=== PATIENT | female | born 1985 | race Caucasian/White ===

== ENCOUNTER 2018-07-02 14:59 | Emergency (ER) | payer OTHER ==
[2018-07-02] MEDS ORDERED: PROMETHAZINE 25 MG TABLET ONE (15:31)
[2018-07-02] MEDS ORDERED: KETOROLAC 30 MG/ML INJ ONE (15:31)
[2018-07-02] MEDS ORDERED: NA CHLORIDE 0.9% 1,000 ML ONE (15:31)
[2018-07-02 15:43] LABS: Absolute Lymphocytes (CBC) 1.6 K/uL (0.7-4.9); Absolute Monocytes 0.6 K/uL (0.1-1.3); Absolute Neutrophil 5.9 K/uL (1.8-8.0); Basophils % 0.3 % (0-1.3); Eosinophils % 0.4 % (0-4.4); Hematocrit 38.8 % (36.0-45.0); Lymphocytes % 19.7 % (15.3-44.8); MCH 30.1 pg (27.0-35.0); MCV 88.6 fL (80-100); MPV 6.7 fL (7.6-11.3); Monocytes % 7.1 % (3.3-12.3); RBC Red Blood Cell Count 4.38 M/uL (3.86-4.86)
[2018-07-02 15:51] LABS: Urine Blood TRACE (NEG); Urine Glucose NEGATIVE (NEG); Urine Protein NEGATIVE (NEG)
[2018-07-02 15:57] LABS: Urine Bacteria <20 /HPF (<20); Urine Culture Reflex Order NOT NEEDED; Urine Mucus 1+ /HPF (NONE SEEN)
[2018-07-02] MEDS ORDERED: FENTANYL CITR 100 MCG/2 ML ONE (16:03)
[2018-07-02 16:06] LABS: BUN Blood Urea Nitrogen 12 mg/dL (7-18); Bicarbonate 27 mmol/L (21-32); Glucose Level 73 mg/dL (74-106); Potassium 3.9 mmol/L (3.5-5.1); Sodium Level 140 mmol/L (136-145)
--- NOTE | 2018-07-02 16:20 | RAD REPORT ---
EXAM DESCRIPTION: CT - Stone Protocol - 07/02/2018 4:06 pm CLINICAL HISTORY: Flank pain. KIDNEY STONES COMPARISON: No comparisons TECHNIQUE: Axial images were obtained without oral or IV contrast. Lack of contrast limits solid org an and vascular assessment. The [id number] spans the entirety of the system partially obscuring uppermost abdomen and lung bases. Coronal reformatted images were obtained and reviewed. All CT scans are performed using dose optimization technique as appropriate and may include automated exposure control or mA/KV adjustment according to patient size. FINDINGS: The lower lung lemos are clear. Imaged portions of the liver and spleen show no suspicious findings on non-contrast imaging. The panc reas and adrenal glands are normal. No pathologic lymphadenopathy in the abdomen or pelvis. Small bilateral renal calculi are present. No ureter stones are seen. No hydronephrosis. No bowel obstruction, free air, free fluid or abscess. Normal appendix noted. No significant bony abnormality. IMPRESSION: Bilateral nephrolithiasis without hydronephrosis.
--- NOTE | 2018-07-02 16:36 | EDPHYS ---
Physician Documentation [facility] Name: Alex Walker Age: 32 yrs Sex: Female : 1985 Arrival Date: 07/02/2018 Time: 15:04 Bed 11 Private MD: Deondre Harris HPI: 07/02 15:18 This 32 yrs old Female presents to ER via Ambulatory with complaints of snw Urinary Problem, Low Back Pain, Eye Pain. 15:18 The patient presents with pain that is acute, with no known mechanism of injury. The snw symptoms are located in the right mid back. Onset: The symptoms/episode began/occurred suddenly, 3 day(s) ago, and became persistent. The pain does not radiate. Associated signs and symptoms: Pertinent positives: headache, urinary symptoms. The problem was sustained from unknown cause. Severity of symptoms: At their worst the symptoms were moderate, severe. It is unknown whether or not the patient has had similar symptoms in the past. just moved to [facility] and sees MD in [place]. 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 - Social history:: Smoking status: Patient/guardian denies using tobacco, Patient/guardian denies using alcohol, street drugs, IV drugs. - Ebola Screening: : No symptoms or risks identified at this time. ROS: 15:16 Constitutional: Negative for fever, chills, and weight loss. snw 15:16 ENT: Negative for injury, pain, and discharge, Neck: Negative for injury, pain, and swelling, Cardiovascular: Negative for chest pain, palpitations, and edema, Respiratory: Negative for shortness of breath, cough, wheezing, and pleuritic chest pain, Abdomen/GI: Negative for abdominal pain, nausea, vomiting, diarrhea, and constipation, MS/Extremity: Negative for injury and deformity, Skin: Negative for injury, rash, and discoloration. 15:16 Eyes: Positive for pressure behind right eye. 15:16 Back: Positive for flank pain, on the right. 15:16 : Positive for urinary symptoms, flank pain. 15:16 Neuro: Positive for headache. Exam: 15:14 Constitutional: This is a well developed, well nourished patient who is awake, alert, snw and in no acute distress. Head/Face: Normocephalic, atraumatic. 15:14 ENT: Nares patent. No nasal discharge, no septal abnormalities noted. Tympanic membranes are normal and external auditory canals are clear. Oropharynx with no redness, swelling, or masses, exudates, or evidence of obstruction, uvula midline. Mucous membranes moist. Neck: Trachea midline, no thyromegaly or masses palpated, and no cervical lymphadenopathy. Supple, full range of motion without nuchal rigidity, or vertebral point tenderness. No Meningismus. Chest/axilla: Normal chest wall appearance and motion. Nontender with no deformity. No lesions are appreciated. Cardiovascular: Regular rate and rhythm with a normal S1 and S2. No gallops, murmurs, or rubs. Normal PMI, no JVD. No pulse deficits. Respiratory: Lungs have equal breath sounds bilaterally, clear to auscultation and percussion. No rales, rhonchi or wheezes noted. No increased work of breathing, no retractions or nasal flaring. Abdomen/GI: Soft, non-tender, with normal bowel sounds. No distension or tympany. No guarding or rebound. No evidence of tenderness throughout. Skin: Warm, dry with normal turgor. Normal color with no rashes, no lesions, and no evidence of cellulitis. MS/ Extremity: Pulses equal, no cyanosis. Neurovascular intact. Full, normal range of motion. Neuro: Awake and alert, GCS 15, oriented to person, place, time, and situation. Cranial nerves II-XII grossly intact. Motor strength 5/5 in all extremities. Sensory grossly intact. Cerebellar exam normal. Normal gait. Psych: Awake, alert, with orientation to person, place and time. Behavior, mood, and affect are within normal limits. 15:14 Eyes: Exam is negative for acute changes. 15:14 Back: pain, is absent, ROM is normal, normal spinal alignment noted, CVA tenderness, that is moderate, is noted on the right. Vital Signs: 15:17 BP 132 / 97; Pulse 75; Resp 18; Temp 98.6(O); Pulse Ox 100% on R/A; Weight 79.83 kg; mg2 Height 5 ft. 1 in. (154.94 cm); Pain 7/10; 16:14 BP 107 / 65; Pulse 76; Resp 18; Pulse Ox 100% on R/A; mg2 17:04 BP 110 / 75; Pulse 74; Resp 18; Pulse Ox 98% on R/A; Pain 2/10; mg2 15:17 Body Mass Index 33.25 (79.83 kg, 154.94 cm) mg2 MDM: 15:11 Patient medically screened. snw 18:37 Data reviewed: vital signs, nurses notes. Data interpreted: Pulse oximetry: on room air snw is 98 %. Counseling: I had a detailed discussion with the patient and/or guardian regarding: the historical points, exam findings, and any diagnostic results supporting the discharge/admit diagnosis, lab results, the need for outpatient follow up, to return to the emergency department if symptoms worsen or persist or if there are any questions or concerns that arise at home. Special discussion: Based on the history and exam findings, there is no indication for further emergent testing or inpatient evaluation. I discussed with the patient/guardian the need to see the primary care provider for further evaluation of the symptoms. 07/02 15:16 Order name: CBC with Diff; Complete Time: 16:08 snw 07/02 15:16 Order name: Chem 7; Complete Time: 16:08 snw 07/02 15:16 Order name: Urine Culture snw 07/02 15:16 Order name: Urine Microscopic Only; Complete Time: 16:08 snw 07/02 15:43 Order name: Urine Dipstick--Ancillary (enter results); Complete Time: 15:55 bd 07/02 15:43 Order name: Urine --Ancillary (enter results); Complete Time: 15:55 bd 07/02 15:16 Order name: Urine Test (obtain specimen); Complete Time: 15:35 snw 07/02 15:16 Order name: Urine Dipstick-Ancillary (obtain specimen); Complete Time: 15:35 snw 07/02 15:56 Order name: CT Stone Protocol; Complete Time: 16:23 snw Administered Medications: 15:35 Drug: NS 0.9% 1000 ml Route: IV; Rate: 1 bolus; Site: left antecubital; mg2 17:03 Follow up: Response: No adverse reaction; IV Status: Completed infusion mg2 15:35 Drug: Phenergan 25 mg Route: PO; mg2 16:00 Follow up: Response: No adverse reaction; Marked relief of symptoms mg2 15:35 Drug: TORadol 30 mg Route: IVP; Site: left antecubital; mg2 16:00 Follow up: Response: No adverse reaction; Pain is unchanged, physician notified mg2 16:00 Drug: fentaNYL (PF) 25 mcg Route: IVP; Site: left antecubital; mg2 17:03 Follow up: Response: No adverse reaction; Marked relief of symptoms mg2 Disposition: 07/03 06:47 Co-signature as Attending Physician, Deondre Melchor MD I agree with the assessment and jordyn plan of care. Disposition: 07/02/18 16:35 Discharged to Home. Impression: Unspecified renal colic, Headache, Dysuria. - Condition is Stable. - Discharge Instructions: Dysuria, General Headache Without Cause, Renal Colic, Dietary Guidelines to Help Prevent Kidney Stones, Rehydration, Adult. - Prescriptions for Fiorinal 50- 325-40 mg Oral Capsule - take 1 capsule by ORAL route every 4 hours As needed - not to exceed 6 capsules per day; 20 capsule. - Work release form, Medication Reconciliation Form, Thank You Letter, Antibiotic Education, Prescription Opioid Use form. - Follow up: Emergency Department; When: As needed; Reason: Worsening of condition. Follow up: Private Physician; When: 2 - 3 days; Reason: Recheck today's complaints, Continuance of care, Re-evaluation by your physician. Signatures: Dispatcher [employer] Deondre Urban MD MD cha Therrien, Shelly, USED EQUIPMENT SALES REPRESENTATIVE-C USED EQUIPMENT SALES REPRESENTATIVE-Csnw Javy Valle, RN RN mg2 Corrections: (The following items were deleted from the chart) 07/02 17:06 16:35 07/02/2018 16:35 Discharged to Home. Impression: Unspecified renal colic; mg2 Headache; Dysuria. Condition is Stable. Forms are Medication Reconciliation Form, Thank You Letter, Antibiotic Education, Prescription Opioid Use. Follow up: Emergency Department; When: As needed; Reason: Worsening of condition. Follow up: Private Physician; When: 2 - 3 days; Reason: Recheck today's complaints, Continuance of care, Re-evaluation by your physician. snw
--- NOTE | 2018-07-02 16:36 | ER ---
Nurse's Notes [facility] Name: Alex Walker Age: 32 yrs Sex: Female : 1985 Arrival Date: 07/02/2018 Time: 15:04 Bed 11 Private MD: Diagnosis: Unspecified renal colic;Headache;Dysuria Presentation: 07/02 15:13 Presenting complaint: Patient states: right flank pain since 3 days, right eye pain for mg2 4 days. she has multiple episodes of renal pain,stones and UTI. Transition of care: patient was not received from another setting of care. Mechanism of Injury: No Mechanism of Injury. The patient denies any loss of vision. Onset of symptoms was June 27, 2018. Risk Assessment: Do you want to hurt yourself or someone else? Patient reports no desire to harm self or others. Initial Sepsis Screen: Does the patient meet any 2 criteria? No. Patient's initial sepsis screen is negative. Does the patient have a suspected source of infection? No. Patient's initial sepsis screen is negative. Care prior to arrival: None. 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 - Social history:: Smoking status: Patient/guardian denies using tobacco, Patient/guardian denies using alcohol, street drugs, IV drugs. - Ebola Screening: : No symptoms or risks identified at this time. Screenin:48 Abuse screen: Denies threats or abuse. Denies injuries from another. Nutritional mg2 screening: No deficits noted. Tuberculosis screening: No symptoms or risk factors identified. Fall Risk IV access (20 points). Assessment: 15:48 General: Appears in no apparent distress. uncomfortable, Behavior is calm, cooperative. mg2 Pain: Complains of pain in right flank, face, eyes Pain does not radiate. Pain currently is 6 out of 10 on a pain scale. Quality of pain is described as aching, Pain began 2-3 days ago. Is intermittent. Neuro: Level of Consciousness is awake, alert, obeys commands, Oriented to person, place, time, situation. Cardiovascular: Capillary refill < 3 seconds Patient's skin is warm and dry. Respiratory: Airway is patent Respiratory effort is even, unlabored, Respiratory pattern is regular, symmetrical. GI: Abdomen is flat. : Urine is clear. EENT: No signs and/or symptoms were reported regarding the EENT system. Reports pain in right eye. Derm: Skin is intact, Skin is pink, warm \T\ dry. normal. Musculoskeletal: No signs and/or symptoms reported regarding the musculoskeletal system. 16:41 Reassessment: Patient appears in no apparent distress at this time. Patient and/or mg2 family updated on plan of care and expected duration. Pain level reassessed. Patient is alert, oriented x 3, equal unlabored respirations, skin warm/dry/pink. for discharge after completing IV fluid. 17:05 EENT: Eyes pain. Sclera/Cornea are clear in right outer canthus, iris of right eye and mg2 inner aspect of conjuctiva of right eye. Vital Signs: 15:17 BP 132 / 97; Pulse 75; Resp 18; Temp 98.6(O); Pulse Ox 100% on R/A; Weight 79.83 kg; mg2 Height 5 ft. 1 in. (154.94 cm); Pain 7/10; 16:14 BP 107 / 65; Pulse 76; Resp 18; Pulse Ox 100% on R/A; mg2 17:04 BP 110 / 75; Pulse 74; Resp 18; Pulse Ox 98% on R/A; Pain 2/10; mg2 15:17 Body Mass Index 33.25 (79.83 kg, 154.94 cm) mg2 ED Course: 15:04 Patient arrived in ED. rg4 15:11 [facility] Hummel [facility]C [facility] snw 15:11 Deondre Melchor MD is Attending Physician. snw 15:13 Javy Valle RN is Primary Nurse. mg2 15:16 Triage completed. mg2 15:20 Arm band placed on. mg2 15:36 No provider procedures requiring assistance completed. Inserted saline lock: 20 gauge mg2 in left antecubital area, using aseptic technique. Blood collected. 16:[address] via wheelchair. vm2 16:05 CT completed. Patient tolerated procedure well. Patient moved back from CT. 2 16:06 CT Stone Protocol In Process Unspecified. EDMS 17:04 IV discontinued, intact, bleeding controlled, No redness/swelling at site. Pressure mg2 dressing applied. 17:05 Patient has correct armband on for positive identification. mg2 Administered Medications: 15:35 Drug: NS 0.9% 1000 ml Route: IV; Rate: 1 bolus; Site: left antecubital; mg2 17:03 Follow up: Response: No adverse reaction; IV Status: Completed infusion mg2 15:35 Drug: Phenergan 25 mg Route: PO; mg2 16:00 Follow up: Response: No adverse reaction; Marked relief of symptoms mg2 15:35 Drug: TORadol 30 mg Route: IVP; Site: left antecubital; mg2 16:00 Follow up: Response: No adverse reaction; Pain is unchanged, physician notified mg2 16:00 Drug: fentaNYL (PF) 25 mcg Route: IVP; Site: left antecubital; mg2 17:03 Follow up: Response: No adverse reaction; Marked relief of symptoms mg2 Outcome: 16:35 Discharge ordered by . lexii 17:04 Discharged to home ambulatory, with family. mg2 17:04 Condition: stable 17:04 Discharge instructions given to patient, family, Instructed on discharge instructions, follow up and referral plans. medication usage, Demonstrated understanding of instructions, follow-up care, medications, Prescriptions given X 1. 17:06 Patient left the ED. mg2 Signatures: Dispatcher [employer] EDKS Maria Eugenia Hummel FNP-C CLEANING PROFESSIONAL-Sheyla Joshi 4 Ivania Tineo 2 Javy Valle, RN RN mg2 Corrections: (The following items were deleted from the chart) 15:19 15:17 BP 132 / 97; Pulse 75bpm; Resp 18bpm; Pulse Ox 100% RA; Temp 98.6F Oral; 79.83 mg2 kg; mg2
== END 2018-07-02 17:06 | disposition home or self-care (01) ==
LOC: ER 14:59
DX: N23 Unspecified renal colic (principal); R30.0 Dysuria; Z88.5 Allergy status to narcotic agent; Z88.6 Allergy status to analgesic agent
CPT/HCPCS: 36415; 74176; 76377; 80048; 81003; 81015; 81025; 85025; 87086; 87088; 96361; 96374; 96375; 99284; J3010; J7030

== ENCOUNTER 2018-07-22 12:03 | Emergency (ER) | payer OTHER ==
[2018-07-22] MEDS ORDERED: NA CHLORIDE 0.9% 1,000 ML ONE (15:32)
[2018-07-22] MEDS ORDERED: ONDANSETRON 4 MG/2 ML VIAL ONE (15:32)
[2018-07-22] MEDS ORDERED: MORPHINE 4 MG/ML SYR ONE (15:46)
[2018-07-22 15:54] LABS: Absolute Lymphocytes (CBC) 2.4 K/uL (0.7-4.9); Absolute Monocytes 0.5 K/uL (0.1-1.3); Absolute Neutrophil 3.1 K/uL (1.8-8.0); Basophils % 0.7 % (0-1.3); Hematocrit 37.9 % (36.0-45.0); Lymphocytes % 38.6 % (15.3-44.8); MCH 30.7 pg (27.0-35.0); MCV 87.9 fL (80-100); Monocytes % 7.7 % (3.3-12.3); RBC Red Blood Cell Count 4.32 M/uL (3.86-4.86)
[2018-07-22 15:55] LABS: ALT/SGPT 118 U/L (12-78); AST/SGOT 55 U/L (15-37); Albumin 3.7 g/dL (3.4-5.0); Alkaline Phosphatase 98 U/L (45-117); BUN Blood Urea Nitrogen 10 mg/dL (7-18); Bicarbonate 31 mmol/L (21-32); Bilirubin Direct < 0.1 mg/dL (0-0.2); Bilirubin Total 0.2 mg/dL (0.2-1.0); Glucose Level 84 mg/dL (74-106); Lipase 75 U/L (73-393); Potassium 4.3 mmol/L (3.5-5.1); Protein, Total 7.7 g/dL (6.4-8.2); Sodium Level 141 mmol/L (136-145)
[2018-07-22 16:08] LABS: Urine Blood TRACE (NEG); Urine Glucose NEGATIVE (NEG); Urine Protein NEGATIVE (NEG); Urine pH 6.5 (5.0-7.0)
[2018-07-22 16:18] LABS: Urine Bacteria <20 /HPF (<20); Urine Culture Reflex Order REFLEXED; Urine RBC <5 /HPF (NONE SEEN)
--- NOTE | 2018-07-22 16:34 | RAD REPORT ---
EXAM DESCRIPTION: CTAbdomen Pelvis W Contrast - 07/22/2018 4:23 pm CLINICAL HISTORY: Abdominal pain. ABD PAIN COMPARISON: Stone Protocol dated 07/02/2018 TECHNIQUE: Biphasic CT imaging of the abdomen and pelvis was performed with 100 ml non-ionic IV cont rast. All CT scans are performed using dose optimization technique as appropriate and may include automated exposure control or mA/KV adjustment according to patient size. FINDINGS: The lung bases are clear. The liver, spleen, pancreas, adrenal glands are within normal limits. Punctate stones are present in both kidneys without hydronephrosis. No bowel obstruction, free air, free fluid or abscess. The appendix is normal. No evidence of signi ficant lymphadenopathy. No suspicious bony findings. IMPRESSION: No acute intra-abdominal or pelvic finding. Punctate bilateral nephrolithiasis without hydronephrosis.
--- NOTE | 2018-07-22 16:43 | EDPHYS ---
Physician Documentation [facility] Name: Alex Walker Age: 32 yrs Sex: Female : 1985 Arrival Date: 07/22/2018 Time: 12:05 Bed 14 Private MD: Out, [facility] ED Physician Damon Riggs HPI: 07/22 16:00 This 32 yrs old Female presents to ER via Ambulatory with complaints of pm1 Vomiting, Abdominal Pain. 16:00 The patient presents to the emergency department with nausea, vomiting, diarrhea, pm1 abdominal pain. Possible causes: unknown. The symptoms are aggravated by nothing. The symptoms are alleviated by nothing. Associated signs and symptoms: Pertinent positives: subjective fever. The patient has not recently seen a physician. Patient presents to the ER with complaints of abdominal pain, nausea, vomiting, and diarrhea. Patient with onset of symptoms 2 weeks ago. For the past three days patient reports subjective fevers. Patient also complaining of abnormal vaginal bleeding on and off for the past month. Appears like two menstrual cycles that are back to back. 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 - Social history:: Smoking status: Patient/guardian denies using tobacco. - Ebola Screening: : No symptoms or risks identified at this time. ROS: 16:00 Constitutional: Negative for fever, chills, and weight loss, Eyes: Negative for injury, pm1 pain, redness, and discharge, ENT: Negative for injury, pain, and discharge, Neck: Negative for injury, pain, and swelling, Cardiovascular: Negative for chest pain, palpitations, and edema, Respiratory: Negative for shortness of breath, cough, wheezing, and pleuritic chest pain. 16:00 Back: Negative for injury and pain, : Negative for injury, bleeding, discharge, and swelling, MS/Extremity: Negative for injury and deformity, Skin: Negative for injury, rash, and discoloration, Neuro: Negative for headache, weakness, numbness, tingling, and seizure. 16:00 Abdomen/GI: Positive for abdominal pain, nausea, vomiting, and diarrhea, Negative for hematemesis, rectal bleeding. Exam: 16:00 Constitutional: This is a well developed, well nourished patient who is awake, alert, pm1 and in no acute distress. Head/Face: Normocephalic, atraumatic. Eyes: Pupils equal round and reactive to light, extra-ocular motions intact. Lids and lashes normal. Conjunctiva and sclera are non-icteric and not injected. Cornea within normal limits. Periorbital areas with no swelling, redness, or edema. ENT: Nares patent. No nasal discharge, no septal abnormalities noted. Tympanic membranes are normal and external auditory canals are clear. Oropharynx with no redness, swelling, or masses, exudates, or evidence of obstruction, uvula midline. Mucous membranes moist. Neck: Trachea midline, no thyromegaly or masses palpated, and no cervical lymphadenopathy. Supple, full range of motion without nuchal rigidity, or vertebral point tenderness. No Meningismus. Chest/axilla: Normal chest wall appearance and motion. Nontender with no deformity. No lesions are appreciated. Cardiovascular: Regular rate and rhythm with a normal S1 and S2. No gallops, murmurs, or rubs. No pulse deficits. Respiratory: Lungs have equal breath sounds bilaterally, clear to auscultation and percussion. No rales, rhonchi or wheezes noted. No increased work of breathing, no retractions or nasal flaring. Abdomen/GI: Soft, non-tender, with normal bowel sounds. No distension or tympany. No guarding or rebound. No evidence of tenderness throughout. Back: No spinal tenderness. No costovertebral tenderness. Full range of motion. Skin: Warm, dry with normal turgor. Normal color with no rashes, no lesions, and no evidence of cellulitis. MS/ Extremity: Pulses equal, no cyanosis. Neurovascular intact. Full, normal range of motion. 16:00 Neuro: Orientation: is normal, Motor: is normal, moves all fours. Vital Signs: 12:18 BP 133 / 98; Pulse 95; Resp 16; Temp 97.9(TE); Pulse Ox 100% on R/A; Pain 7/10; hb 15:00 BP 125 / 89; Pulse 76; Resp 17; Pulse Ox 100% on R/A; tw2 15:55 BP 108 / 56; Pulse 66; Resp 17; Pulse Ox 99% on R/A; tw2 16:44 BP 107 / 69; Pulse 65; Resp 17; Pulse Ox 98% on R/A; dh3 MDM: 15:03 Patient medically screened. pm1 16:40 Data reviewed: vital signs. Data interpreted: Pulse oximetry: on room air is 99 %. pm1 Interpretation: normal. Counseling: I had a detailed discussion with the patient and/or guardian regarding: the historical points, exam findings, and any diagnostic results supporting the discharge/admit diagnosis, lab results, radiology results, the need for outpatient follow up, to return to the emergency department if symptoms worsen or persist or if there are any questions or concerns that arise at home. 07/22 15:04 Order name: Basic Metabolic Panel; Complete Time: 16:36 pm1 07/22 15:04 Order name: CBC with Diff; Complete Time: 16:36 pm1 07/22 15:04 Order name: Creatinine for Radiology; Complete Time: 16:36 pm1 07/22 15:04 Order name: Hepatic Function; Complete Time: 16:36 pm1 07/22 15:04 Order name: Lipase; Complete Time: 16:36 pm1 07/22 15:35 Order name: Urine Microscopic Only; Complete Time: 16:36 pm1 07/22 15:04 Order name: IV Saline Lock; Complete Time: 15:23 pm1 07/22 15:13 Order name: CT Abd/Pelvis - W/Contrast: IV contrast only; Complete Time: 16:36 pm1 07/22 15:50 Order name: Urine Dipstick--Ancillary (enter results); Complete Time: 16:36 em1 07/22 15:50 Order name: Urine --Ancillary (enter results); Complete Time: 16:36 em1 07/22 16:20 Order name: Urine Culture [facility] 07/22 15:04 Order name: Labs collected and sent; Complete Time: 15:24 pm1 07/22 15:04 Order name: Urine Dipstick-Ancillary (obtain specimen); Complete Time: 15:34 pm1 07/22 15:04 Order name: Urine Test (obtain specimen); Complete Time: 15:34 pm1 Administered Medications: 15:25 Drug: Zofran 4 mg Route: IVP; Site: left antecubital; tw2 16:45 Follow up: Response: No adverse reaction tw2 15:32 Drug: NS 0.9% 1000 ml Route: IV; Rate: 1000 ml; Site: left antecubital; tw2 16:44 Follow up: Response: No adverse reaction; IV Status: Completed infusion; IV Intake: tw2 1000ml 17:05 Follow up: IV Status: Completed infusion; IV Intake: 600ml ; pt states "i just want to tw2 go home, i dont want to stay for the rest of the fluids" 15:42 Drug: morphine 4 mg Route: IVP; Site: left antecubital; tw2 16:45 Follow up: Response: No adverse reaction tw2 Disposition: 17:45 Co-signature as Attending Physician, Damon Riggs MD. rn Disposition: 07/22/18 16:42 Discharged to Home. Impression: Unspecified abdominal pain, Gastroenteritis, Other abnormal uterine and vaginal bleeding. - Condition is Stable. - Discharge Instructions: Abdominal Pain, Adult, Abnormal Uterine Bleeding, Food Choices to Help Relieve Diarrhea, Adult, Diarrhea, Adult, Nausea and Vomiting, Adult, Viral Gastroenteritis, Adult. - Prescriptions for Bentyl 20 mg Oral Tablet - take 1 tablet by ORAL route every 6 hours As needed; 20 tablet. Zofran 4 mg Oral Tablet - take 1 tablet by ORAL route every 8 hours As needed; 20 tablet. - Medication Reconciliation Form, Thank You Letter, Antibiotic Education form. - Follow up: Emergency Department; When: As needed; Reason: Worsening of condition. Follow up: Private Physician; When: 2 - 3 days; Reason: Recheck today's complaints, Continuance of care, Re-evaluation by your physician. - Problem is new. - Symptoms have improved. Signatures: Dispatcher [employer] EDMS Damon Riggs MD MD rn Marinas, Patrick, NP ENGINEERING GROUP LEADER pm1 Clara Gracia RN RN Sherice Kc RN RN tw2 Corrections: (The following items were deleted from the chart) 16:50 16:42 07/22/2018 16:42 Discharged to Home. Impression: Unspecified abdominal pain; pm1 Gastroenteritis. Condition is Stable. Forms are Medication Reconciliation Form, Thank You Letter, Antibiotic Education, Prescription Opioid Use. Follow up: Emergency Department; When: As needed; Reason: Worsening of condition. Follow up: Private Physician; When: 2 - 3 days; Reason: Recheck today's complaints, Continuance of care, Re-evaluation by your physician. Problem is new. Symptoms have improved. pm1 17:07 16:50 07/22/2018 16:42 Discharged to Home. Impression: Unspecified abdominal pain; tw2 Gastroenteritis; Other abnormal uterine and vaginal bleeding. Condition is Stable. Discharge Instructions: Abdominal Pain, Adult, Food Choices to Help Relieve Diarrhea, Adult, Diarrhea, Adult, Nausea and Vomiting, Adult, Viral Gastroenteritis, Adult. Prescriptions for Bentyl 20 mg Oral Tablet - take 1 tablet by ORAL route every 6 hours As needed; 20 tablet, Zofran 4 mg Oral Tablet - take 1 tablet by ORAL route every 8 hours As needed; 20 tablet. and Forms are Medication Reconciliation Form, Thank You Letter, Antibiotic Education. Follow up: Emergency Department; When: As needed; Reason: Worsening of condition. Follow up: Private Physician; When: 2 - 3 days; Reason: Recheck today's complaints, Continuance of care, Re-evaluation by your physician. Problem is new. Symptoms have improved. pm1
--- NOTE | 2018-07-22 16:43 | ER ---
Nurse's Notes [facility] Name: Alex Walker Age: 32 yrs Sex: Female : 1985 Arrival Date: 07/22/2018 Time: 12:05 Bed 14 Private MD: Out, [facility] Diagnosis: Unspecified abdominal pain;Gastroenteritis;Other abnormal uterine and vaginal bleeding Presentation: 07/22 12:18 Presenting complaint: Patient states: Diffuse abdominal pain and nausea x 2 weeks, hb vomiting and fever x 3 days. Tolerating liquids. Pt also reports intermittent vaginal bleeding x 1 month. TMAX unknown, does not own thermometer. Transition of care: patient was not received from another setting of care. Onset of symptoms is unknown. Risk Assessment: Do you want to hurt yourself or someone else? Patient reports no desire to harm self or others. 12:18 Acuity: MARIA GUADALUPE 3 hb 12:18 Method Of Arrival: Ambulatory hb 15:58 Initial Sepsis Screen: Does the patient meet any 2 criteria? No. Patient's initial tw2 sepsis screen is negative. Does the patient have a suspected source of infection? No. Patient's initial sepsis screen is negative. Care prior to arrival: None. 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 - Social history:: Smoking status: Patient/guardian denies using tobacco. - Ebola Screening: : No symptoms or risks identified at this time. Screenin:57 Abuse screen: Denies threats or abuse. Nutritional screening: No deficits noted. tw2 Tuberculosis screening: No symptoms or risk factors identified. Fall Risk None identified. Assessment: 14:46 General: Appears in no apparent distress. Behavior is calm, cooperative, appropriate tw2 for age. Pain: Complains of pain in abdomen. Neuro: Level of Consciousness is awake, alert, Oriented to person, place, time, situation. Cardiovascular: Denies chest pain, shortness of breath, Heart tones S1 S2 Capillary refill < 3 seconds Patient's skin is warm and dry. Respiratory: Airway is patent Respiratory effort is even, unlabored, Respiratory pattern is regular, symmetrical, Breath sounds are clear bilaterally. GI: Abdomen is flat, Bowel sounds present X 4 quads. Reports nausea, vomiting. : No signs and/or symptoms were reported regarding the genitourinary system. EENT: EENT: No signs and/or symptoms were reported regarding the EENT system. Derm: No signs and/or symptoms reported regarding the dermatologic system. Musculoskeletal: Range of motion: intact in all extremities. 15:55 Reassessment: Patient appears in no apparent distress at this time. No changes from tw2 previously documented assessment. Patient and/or family updated on plan of care and expected duration. Pain level reassessed. Patient is alert, oriented x 3, equal unlabored respirations, skin warm/dry/pink. 17:06 Reassessment: Patient appears in no apparent distress at this time. No changes from tw2 previously documented assessment. Patient and/or family updated on plan of care and expected duration. Pain level reassessed. Patient is alert, oriented x 3, equal unlabored respirations, skin warm/dry/pink. Vital Signs: 12:18 BP 133 / 98; Pulse 95; Resp 16; Temp 97.9(TE); Pulse Ox 100% on R/A; Pain 7/10; hb 15:00 BP 125 / 89; Pulse 76; Resp 17; Pulse Ox 100% on R/A; tw2 15:55 BP 108 / 56; Pulse 66; Resp 17; Pulse Ox 99% on R/A; tw2 16:44 BP 107 / 69; Pulse 65; Resp 17; Pulse Ox 98% on R/A; dh3 ED Course: 12:05 Patient arrived in ED. sb2 12:05 Out, [facility] is Private Physician. sb2 12:20 Triage completed. hb 12:20 Arm band placed on right wrist. hb 14:46 Bed in low position. Call light in reach. Side rails up X 1. Pulse ox on. NIBP on. Warm tw2 blanket given. 14:49 Sherice Pardo, ANIRUDH is Primary Nurse. tw2 14:55 Inserted saline lock: 22 gauge in left antecubital area, using aseptic technique. Blood tw2 collected. 15:02 Benja Guzman NP is PHCP. pm1 15:02 Damon Riggs MD is Attending Physician. pm1 15:21 Radiology exam delayed due to lab results not completed at this time. (BUN/Creatinine) test not completed at this time. 15:34 Urine collected: clean catch specimen, cloudy. dh3 16:23 CT completed. Patient tolerated procedure well. Patient moved to CT. Patient moved back ne from CT. 16:24 CT Abd/Pelvis - W/Contrast: IV contrast only In Process Unspecified. EDMS 17:06 No provider procedures requiring assistance completed. IV discontinued, intact, tw2 bleeding controlled, No redness/swelling at site. Pressure dressing applied. Administered Medications: 15:25 Drug: Zofran 4 mg Route: IVP; Site: left antecubital; tw2 16:45 Follow up: Response: No adverse reaction tw2 15:32 Drug: NS 0.9% 1000 ml Route: IV; Rate: 1000 ml; Site: left antecubital; tw2 16:44 Follow up: Response: No adverse reaction; IV Status: Completed infusion; IV Intake: tw2 1000ml 17:05 Follow up: IV Status: Completed infusion; IV Intake: 600ml ; pt states "i just want to tw2 go home, i dont want to stay for the rest of the fluids" 15:42 Drug: morphine 4 mg Route: IVP; Site: left antecubital; tw2 16:45 Follow up: Response: No adverse reaction tw2 Intake: 16:44 IV: 1000ml; Total: 1000ml. tw2 17:05 IV: 600ml; Total: 1600ml. tw2 Outcome: 16:42 Discharge ordered by . pm1 17:06 Discharged to home ambulatory. tw2 17:06 Condition: stable 17:06 Discharge instructions given to patient, Instructed on discharge instructions, follow up and referral plans. no drinking with medication, no driving heavy equipment, medication usage, Demonstrated understanding of instructions, follow-up care, medications, Prescriptions given X 2. 17:07 Patient left the ED. tw2 Addendum: 07/25/2018 07:33 Addendum: Culture Results: Positive urine culture. No further action required. Other: i w culture report and chart was reviewed by NILES Lambert, no need further action needed, pt had no urinary symptoms . Signatures: Dispatcher [employer] EDNC Nohemy Galeana RN RN iw Warren, Shannon sw Marinas, Patrick, JOINT TERMINAL ATTACK CONTROLLER JOINT TERMINAL ATTACK CONTROLLER pm1 Clara Gracia, RN RN hb Sherice Pardo RN RN tw2 Enrique Harrell Deanna 3 Jeannette Haas sb2
== END 2018-07-22 17:07 | disposition home or self-care (01) ==
LOC: ER 12:03
DX: K52.9 Noninfective gastroenteritis and colitis, unspecified (principal); N93.8 Other specified abnormal uterine and vaginal bleeding; Z88.6 Allergy status to analgesic agent
CPT/HCPCS: 36415; 74177; 80048; 80076; 81003; 81015; 81025; 83690; 85025; 87077; 87086; 87088; 87186; 96361; 96374; 96375; 99284; J2405; J7030; Q9967

== ENCOUNTER 2018-08-19 18:16 | Emergency (ER) | payer OTHER ==
--- NOTE | 2018-08-19 19:40 | ER ---
Nurse's Notes [facility] Name: Alex Walker Age: 33 yrs Sex: Female : 1985 Arrival Date: 08/19/2018 Time: 18:19 Bed 18 Private MD: Diagnosis: Dermatitis, unspecified;Carpal tunnel syndrome, right upper limb Presentation: 08/19 18:22 Presenting complaint: Patient states: " I have had a rash on my stomach for about 3 ph weeks, it dominguez and is itchy, I've tried Benadryl and cortisone cream but it hasn't helped. I also started a new job earlier this month and since then I have been getting numbness and tingling in my R arm from my elbow down to my hand." Rash noted to abdomen, red and dry in appearance. Transition of care: patient was not received from another setting of care. Onset of symptoms was August 19, 2018. Risk Assessment: Do you want to hurt yourself or someone else? Patient reports no desire to harm self or others. Initial Sepsis Screen: Does the patient meet any 2 criteria? No. Patient's initial sepsis screen is negative. Does the patient have a suspected source of infection? No. Patient's initial sepsis screen is negative. Care prior to arrival: None. 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 - Social history:: Smoking status: Patient uses tobacco products, denies chronic smoking, but will smoke occasionally. - Ebola Screening: : No symptoms or risks identified at this time. Screenin:07 Abuse screen: Denies threats or abuse. Nutritional screening: No deficits noted. jb4 Tuberculosis screening: No symptoms or risk factors identified. Fall Risk None identified. Assessment: 19:05 General: Appears in no apparent distress. comfortable, Behavior is calm, cooperative, jb4 appropriate for age. Pain: Denies pain. Neuro: Level of Consciousness is awake, alert, obeys commands, Oriented to person, place, time, situation. Cardiovascular: Patient's skin is warm and dry. Respiratory: Airway is patent Respiratory effort is even, unlabored, Respiratory pattern is regular, symmetrical. GI: No signs and/or symptoms were reported involving the gastrointestinal system. : No signs and/or symptoms were reported regarding the genitourinary system. EENT: No signs and/or symptoms were reported regarding the EENT system. Derm: Skin is intact, Skin is pink, warm \\T\\ dry. Rash noted that is itchy, red, on abdomen. Musculoskeletal: Circulation, motion, and sensation intact. Discolorations noted to the right index finger. Pt reports that this is new and has not touched or been in contact with any agents that could stain the skin. Vital Signs: 18:26 BP 123 / 78; Pulse 88; Resp 18; Temp 97.9; Pulse Ox 100% on R/A; Weight 67.13 kg; ph Height 5 ft. 1 in. (154.94 cm); Pain 4/10; 19:47 BP 100 / 68; Pulse 69; Resp 18 S; Pulse Ox 100% on R/A; jb4 18:26 Body Mass Index 27.96 (67.13 kg, 154.94 cm) ph ED Course: 18:19 Patient arrived in ED. as 18:25 Triage completed. ph 18:27 Arm band placed on. ph 18:57 Ruben Ozuna, ANIRUDH is Primary Nurse. jb4 19:00 Juan Hughes MD is Attending Physician. 19:07 Patient has correct armband on for positive identification. Bed in low position. Call jb4 light in reach. Side rails up X 1. Pulse ox on. NIBP on. 19:47 No provider procedures requiring assistance completed. Patient did not have IV access jb4 during this emergency room visit. Velcro wrist splint applied to right wrist. Administered Medications: No medications were administered Outcome: 19:39 Discharge ordered by . gs 19:47 Discharged to home ambulatory. jb4 19:47 Condition: stable 19:47 Discharge instructions given to patient, Instructed on discharge instructions, follow up and referral plans. medication usage, Demonstrated understanding of instructions, follow-up care, medications, Prescriptions given X 2. 19:48 Patient left the ED. jb4 Signatures: Ira Gracia Patricia, RN RN Ruben Ozuna RN RN jb4 Juan Hughes MD MD
--- NOTE | 2018-08-19 19:41 | EDPHYS ---
Physician Documentation [facility] Name: Alex Walker Age: 33 yrs Sex: Female : 1985 Arrival Date: 08/19/2018 Time: 18:19 Bed 18 Private MD: ED Physician Juan Hughes HPI: 08/19 19:28 This 33 yrs old Female presents to ER via Ambulatory with complaints of Rash, gs Numbness Of Hand. 19:28 The rash is located on the right lower quadrant and left lower quadrant. The rash can gs be described as erythematous, papular. Onset: The symptoms/episode began/occurred 1 week(s) ago, and became persistent. Associated signs and symptoms: Pertinent negatives: difficulty breathing, Pain swelling of lips, swelling of throat, swelling of tongue. Severity of symptoms: At their worst the symptoms were moderate in the emergency department the symptoms are unchanged. The patient has experienced similar episodes in the past, a few times. 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 - Social history:: Smoking status: Patient uses tobacco products, denies chronic smoking, but will smoke occasionally. - Ebola Screening: : No symptoms or risks identified at this time. ROS: 19:28 All other systems are negative. gs 19:28 MS/extremity: Positive for tingling, 1-3 finger when bends back wrist at work, not numb gs now. Exam: 19:28 Head/Face: Normocephalic, atraumatic. Eyes: Pupils equal round and reactive to light, gs extra-ocular motions intact. Lids and lashes normal. Conjunctiva and sclera are non-icteric and not injected. Cornea within normal limits. Periorbital areas with no swelling, redness, or edema. ENT: Nares patent. No nasal discharge, no septal abnormalities noted. Tympanic membranes are normal and external auditory canals are clear. Oropharynx with no redness, swelling, or masses, exudates, or evidence of obstruction, uvula midline. Mucous membranes moist. Neck: Trachea midline, no thyromegaly or masses palpated, and no cervical lymphadenopathy. Supple, full range of motion without nuchal rigidity, or vertebral point tenderness. No Meningismus. Chest/axilla: Normal chest wall appearance and motion. Nontender with no deformity. No lesions are appreciated. Cardiovascular: Regular rate and rhythm with a normal S1 and S2. No gallops, murmurs, or rubs. Normal PMI, no JVD. No pulse deficits. Respiratory: Lungs have equal breath sounds bilaterally, clear to auscultation and percussion. No rales, rhonchi or wheezes noted. No increased work of breathing, no retractions or nasal flaring. Abdomen/GI: Soft, non-tender, with normal bowel sounds. No distension or tympany. No guarding or rebound. No evidence of tenderness throughout. Back: No spinal tenderness. No costovertebral tenderness. Full range of motion. MS/ Extremity: Pulses equal, no cyanosis. Neurovascular intact. Full, normal range of motion. Neuro: Awake and alert, GCS 15, oriented to person, place, time, and situation. Cranial nerves II-XII grossly intact. Motor strength 5/5 in all extremities. Sensory grossly intact. Cerebellar exam normal. Normal gait. 19:28 Constitutional: The patient appears alert, awake. 19:28 Skin: rash a moderate rash is noted, rash can be described as erythematous, excoriated, papular, on the suprapubic area, right lower quadrant and left lower quadrant. Vital Signs: 18:26 BP 123 / 78; Pulse 88; Resp 18; Temp 97.9; Pulse Ox 100% on R/A; Weight 67.13 kg; ph Height 5 ft. 1 in. (154.94 cm); Pain 4/10; 19:47 BP 100 / 68; Pulse 69; Resp 18 S; Pulse Ox 100% on R/A; jb4 18:26 Body Mass Index 27.96 (67.13 kg, 154.94 cm) ph MDM: 19:24 Patient medically screened. 19:28 Differential diagnosis: contact dermatitis, cellulitis. Data reviewed: vital signs, nurses notes. Response to treatment: the patient's symptoms have markedly improved after treatment, and as a result, I will discharge patient. Administered Medications: No medications were administered Disposition: 08/19/18 19:39 Discharged to Home. Impression: Dermatitis, unspecified, Carpal tunnel syndrome, right upper limb. - Condition is Stable. - Discharge Instructions: Rash, Hand Exercises. - Prescriptions for Keflex 500 mg Oral Capsule - take 1 capsule by ORAL route every 8 hours for 7 days; 28 capsule. Triamcinolone Acetonide 0.5 % Topical Cream - apply 1 application by TOPICAL route 2 times per day As needed; 1 tube. - Medication Reconciliation Form, Thank You Letter, Antibiotic Education, Prescription Opioid Use form. - Follow up: Private Physician; When: 2 - 3 days; Reason: Re-evaluation by your physician. Signatures: Nela White RN RN ph Ruben Ozuna RN RN jb4 Juan Hughes MD MD Corrections: (The following items were deleted from the chart) 19:48 19:39 08/19/2018 19:39 Discharged to Home. Impression: Dermatitis, unspecified; Carpal jb4 tunnel syndrome, right upper limb. Condition is Stable. Forms are Medication Reconciliation Form, Thank You Letter, Antibiotic Education, Prescription Opioid Use. Follow up: Private Physician; When: 2 - 3 days; Reason: Re-evaluation by your physician. gs
== END 2018-08-19 19:48 | disposition home or self-care (01) ==
LOC: ER 18:16
DX: L30.9 Dermatitis, unspecified (principal); G56.01 Carpal tunnel syndrome, right upper limb
CPT/HCPCS: 99283

== ENCOUNTER 2018-11-07 21:33 | Emergency (ER) | payer OTHER ==
[2018-11-07 22:51] LABS: BUN Blood Urea Nitrogen 16 mg/dL (7-18); Bicarbonate 25 mmol/L (21-32); Glucose Level 98 mg/dL (74-106); Potassium 3.9 mmol/L (3.5-5.1); Sodium Level 141 mmol/L (136-145)
[2018-11-07 23:07] LABS: Urine Blood TRACE (NEG); Urine Glucose NEGATIVE (NEG); Urine Protein TRACE (NEG); Urine Specific Gravity 1.025 (1.005-1.030); Urine pH 6.5 (5.0-7.0)
[2018-11-07] MEDS ORDERED: ONDANSETRON 4 MG/2 ML VIAL ONE (23:15)
[2018-11-07] MEDS ORDERED: FENTANYL CITR 100 MCG/2 ML ONE (23:15)
[2018-11-08 00:02] LABS: Urine Bacteria >50 /HPF (<20); Urine RBC NONE SEEN /HPF (NONE SEEN)
[2018-11-08 00:03] LABS: Urine Culture Reflex Order NOT NEEDED
--- NOTE | 2018-11-08 00:24 | EDPHYS ---
Physician Documentation [facility] Name: Alex Walker Age: 33 yrs Sex: Female : 1985 Arrival Date: 11/07/2018 Time: 21:37 Bed 28 Private MD: ED Physician Juan Hughes HPI: 11/07 23:43 This 33 yrs old Female presents to ER via Ambulatory with complaints of Flank kb Pain, Fever, Body ache. 23:43 The patient presents with abdominal pain right lower quadrant. Onset: The kb symptoms/episode began/occurred today. The symptoms do not radiate. Associated signs and symptoms: Pertinent positives: nausea and vomiting, fever, Pertinent negatives: constipation, diarrhea. The symptoms are described as constant. Modifying factors: The symptoms are alleviated by nothing, the symptoms are aggravated by pressure. Severity of pain: At its worst the pain was moderate in the emergency department the pain is unchanged. The patient has not experienced similar symptoms in the past. The patient has not recently seen a physician. 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 - Social history:: Smoking status: Patient uses tobacco products, smokes one-half pack cigarettes per day. - Ebola Screening: : No symptoms or risks identified at this time. ROS: 23:42 ENT: Negative for injury, pain, and discharge, Neck: Negative for injury, pain, and kb swelling, Cardiovascular: Negative for chest pain, palpitations, and edema, Respiratory: Negative for shortness of breath, cough, wheezing, and pleuritic chest pain, MS/Extremity: Negative for injury and deformity, Skin: Negative for injury, rash, and discoloration, Neuro: Negative for headache, weakness, numbness, tingling, and seizure. 23:42 Constitutional: Positive for body aches, fever, malaise, Negative for chills, fatigue, poor PO intake, weight loss. 23:42 Abdomen/GI: Positive for abdominal pain, nausea and vomiting, Negative for diarrhea, constipation, abdominal cramps, abdominal distension, anorexia. Exam: 23:42 Constitutional: This is a well developed, well nourished patient who is awake, alert, kb and in no acute distress. Head/Face: Normocephalic, atraumatic. ENT: Nares patent. No nasal discharge, no septal abnormalities noted. Tympanic membranes are normal and external auditory canals are clear. Oropharynx with no redness, swelling, or masses, exudates, or evidence of obstruction, uvula midline. Mucous membranes moist. Neck: Trachea midline, no thyromegaly or masses palpated, and no cervical lymphadenopathy. Supple, full range of motion without nuchal rigidity, or vertebral point tenderness. No Meningismus. Chest/axilla: Normal chest wall appearance and motion. Nontender with no deformity. No lesions are appreciated. Cardiovascular: Regular rate and rhythm with a normal S1 and S2. No gallops, murmurs, or rubs. Normal PMI, no JVD. No pulse deficits. Respiratory: Lungs have equal breath sounds bilaterally, clear to auscultation and percussion. No rales, rhonchi or wheezes noted. No increased work of breathing, no retractions or nasal flaring. Skin: Warm, dry with normal turgor. Normal color with no rashes, no lesions, and no evidence of cellulitis. MS/ Extremity: Pulses equal, no cyanosis. Neurovascular intact. Full, normal range of motion. Neuro: Awake and alert, GCS 15, oriented to person, place, time, and situation. Cranial nerves II-XII grossly intact. Motor strength 5/5 in all extremities. Sensory grossly intact. Cerebellar exam normal. Normal gait. 23:42 Abdomen/GI: Inspection: abdomen appears normal, Bowel sounds: normal, in all quadrants, Palpation: soft, in all quadrants, moderate abdominal tenderness, in the right lower quadrant. Vital Signs: 21:44 BP 126 / 77; Pulse 84; Resp 18; Temp 99.2(O); Pulse Ox 99% on R/A; Weight 77.11 kg (R); ak1 Height 5 ft. 1 in. (154.94 cm) (R); Pain 8/10; 22:00 BP 109 / 66; Pulse 71; Resp 18; Pulse Ox 100% on R/A; rv 22:30 BP 107 / 73; Pulse 67; Resp 16; Pulse Ox 100% on R/A; rv 23:00 BP 106 / 69; Pulse 64; Resp 18; Pulse Ox 100% ; rv 23:30 BP 98 / 58; Pulse 60; Resp 17; Pulse Ox 100% on R/A; rv 11/08 00:16 Pain 4/10; rv 00:34 BP 101 / 54; Pulse 64; Resp 17; Pulse Ox 100% on R/A; rv 11/07 21:44 Body Mass Index 32.12 (77.11 kg, 154.94 cm) ak1 MDM: 11/07 21:50 Patient medically screened. kb 23:42 Data reviewed: vital signs, nurses notes. Data interpreted: Pulse oximetry: on room air kb is 99 %. Interpretation: normal. Counseling: I had a detailed discussion with the patient and/or guardian regarding: the historical points, exam findings, and any diagnostic results supporting the discharge/admit diagnosis, lab results, radiology results, the need for outpatient follow up, a family practitioner, to return to the emergency department if symptoms worsen or persist or if there are any questions or concerns that arise at home. 11/07 21:47 Order name: Flu; Complete Time: 22:16 ak1 11/07 22:16 Order name: Basic Metabolic Panel; Complete Time: 22:55 kb 11/07 22:16 Order name: CBC with Diff kb 11/07 22:33 Order name: Urine Microscopic Only; Complete Time: 00:08 bb 11/07 22:52 Order name: Urine Dipstick--Ancillary (enter results); Complete Time: 23:11 ag4 11/07 22:52 Order name: Urine --Ancillary (enter results); Complete Time: 23:11 ag4 11/07 21:50 Order name: Urine Dipstick-Ancillary (obtain specimen); Complete Time: 22:46 kb 11/07 22:16 Order name: IV Saline Lock; Complete Time: 22:47 kb 11/07 22:16 Order name: Labs collected and sent; Complete Time: 22:47 kb 11/07 22:16 Order name: CT Stone Protocol kb Administered Medications: 23:05 Drug: fentaNYL (PF) 50 mcg Route: IVP; Site: left forearm; rv 11/08 00:16 Follow up: Pain 4/10 Adult; Response: Pain is decreased rv 11/07 23:05 Drug: Zofran 4 mg Route: IVP; Site: left forearm; rv 11/08 00:16 Follow up: Response: Nausea is decreased rv 00:25 Drug: Rocephin 1 grams Route: IV; Rate: calculated rate; Site: left forearm; rv 00:34 Follow up: Response: Medication administered at discharge. rv Disposition: 01:38 Co-signature as Attending Physician, Juan Hughes MD. Disposition: 11/08/18 00:23 Discharged to Home. Impression: Urinary tract infection, site not specified. - Condition is Stable. - Discharge Instructions: Urinary Tract Infection, Adult, [id number]. - Prescriptions for Macrobid 100 mg Oral Capsule - take 1 capsule by ORAL route every 12 hours for 10 days; 20 capsule. - Work release form, Medication Reconciliation Form, Thank You Letter, Antibiotic Education, Prescription Opioid Use form. - Follow up: Emergency Department; When: As needed; Reason: Worsening of condition. Follow up: Private Physician; When: 2 - 3 days; Reason: Recheck today's complaints, Continuance of care, Re-evaluation by your physician. Signatures: Dispatcher [employer] EDMS Sylvia Lemus, LUIZ-C MATERIAL HANDLER LOADER-Shonna Cardona, RN RN ak1 Juan Hughes MD MD Danilo Nascimento RN RN rv Corrections: (The following items were deleted from the chart) 00:36 00:23 11/08/2018 00:23 Discharged to Home. Impression: Urinary tract infection, site rv not specified. Condition is Stable. Forms are Medication Reconciliation Form, Thank You Letter, Antibiotic Education, Prescription Opioid Use. Follow up: Emergency Department; When: As needed; Reason: Worsening of condition. Follow up: Private Physician; When: 2 - 3 days; Reason: Recheck today's complaints, Continuance of care, Re-evaluation by your physician. kb
--- NOTE | 2018-11-08 00:24 | ER ---
Nurse's Notes [facility] Name: Alex Walker Age: 33 yrs Sex: Female : 1985 Arrival Date: 11/07/2018 Time: 21:37 Bed 28 Private MD: Diagnosis: Urinary tract infection, site not specified Presentation: 11/07 21:42 Presenting complaint: Patient states: right lower abd pain with fever and body aches X1 ak1 day. Transition of care: patient was not received from another setting of care. Onset of symptoms was November 06, 2018. Risk Assessment: Do you want to hurt yourself or someone else? Patient reports no desire to harm self or others. Care prior to arrival: None. 21:42 Method Of Arrival: Ambulatory ak1 21:42 Acuity: MARIA GUADALUPE 3 ak1 21:53 Initial Sepsis Screen: Does the patient meet any 2 criteria? No. Patient's initial rv sepsis screen is negative. Does the patient have a suspected source of infection? No. Patient's initial sepsis screen is negative. Triage Assessment: 21:44 General: Appears uncomfortable, Behavior is calm, cooperative. 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 - Social history:: Smoking status: Patient uses tobacco products, smokes one-half pack cigarettes per day. - Ebola Screening: : No symptoms or risks identified at this time. Screenin:47 Abuse screen: Denies threats or abuse. Denies injuries from another. Nutritional ak1 screening: No deficits noted. Tuberculosis screening: No symptoms or risk factors identified. Fall Risk None identified. Assessment: 21:52 General: Appears in no apparent distress. uncomfortable, Behavior is calm, cooperative. rv Pain: Complains of pain in back Pain currently is 8 out of 10 on a pain scale. Also complains of nausea. Neuro: Level of Consciousness is awake, alert, obeys commands, Oriented to person, place, time, situation. Cardiovascular: Capillary refill < 3 seconds. Respiratory: Airway is patent. GI: No signs and/or symptoms were reported involving the gastrointestinal system. : No signs and/or symptoms were reported regarding the genitourinary system. EENT: No signs and/or symptoms were reported regarding the EENT system. Derm: Skin is intact. Musculoskeletal: No signs and/or symptoms reported regarding the musculoskeletal system. 23:44 Reassessment: Patient appears in no apparent distress at this time. awaiting CT scan rv result. Vital Signs: 21:44 BP 126 / 77; Pulse 84; Resp 18; Temp 99.2(O); Pulse Ox 99% on R/A; Weight 77.11 kg (R); ak1 Height 5 ft. 1 in. (154.94 cm) (R); Pain 8/10; 22:00 BP 109 / 66; Pulse 71; Resp 18; Pulse Ox 100% on R/A; rv 22:30 BP 107 / 73; Pulse 67; Resp 16; Pulse Ox 100% on R/A; rv 23:00 BP 106 / 69; Pulse 64; Resp 18; Pulse Ox 100% ; rv 23:30 BP 98 / 58; Pulse 60; Resp 17; Pulse Ox 100% on R/A; rv 11/08 00:16 Pain 4/10; rv 00:34 BP 101 / 54; Pulse 64; Resp 17; Pulse Ox 100% on R/A; rv 11/07 21:44 Body Mass Index 32.12 (77.11 kg, 154.94 cm) ak1 ED Course: 11/07 21:37 Patient arrived in ED. es 21:43 Triage completed. ak1 21:44 Arm band placed on Patient placed in waiting room, Patient notified of wait time. ak1 21:49 Sylvia Lemus FNP-C is [facility]. kb 21:49 Juan Hughes MD is Attending Physician. kb 21:53 Patient has correct armband on for positive identification. Bed in low position. Call rv light in reach. Side rails up X 1. Pulse ox on. NIBP on. 22:18 Radiology exam delayed due to test not completed at this time. vm2 22:[address] via wheelchair. vm2 22:47 Basic Metabolic Panel Sent. ds4 22:47 CBC with Diff Sent. ds4 23:01 CT Stone Protocol In Process Unspecified. EDMS 11/08 00:35 No provider procedures requiring assistance completed. IV discontinued, bleeding rv controlled, No redness/swelling at site. Pressure dressing applied. Administered Medications: 11/07 23:05 Drug: fentaNYL (PF) 50 mcg Route: IVP; Site: left forearm; rv 11/08 00:16 Follow up: Pain 4/10 Adult; Response: Pain is decreased rv 11/07 23:05 Drug: Zofran 4 mg Route: IVP; Site: left forearm; rv 11/08 00:16 Follow up: Response: Nausea is decreased rv 00:25 Drug: Rocephin 1 grams Route: IV; Rate: calculated rate; Site: left forearm; rv 00:34 Follow up: Response: Medication administered at discharge. rv Outcome: 00:23 Discharge ordered by . kb 00:35 Discharged to home ambulatory. rv 00:35 Condition: improved 00:35 Discharge instructions given to patient, Instructed on discharge instructions, follow up and referral plans. medication usage, Demonstrated understanding of instructions, follow-up care, medications. 00:36 Prescriptions given X 1. rv 00:36 Patient left the ED. rv Signatures: Dispatcher [employer] EDOR Sylvia Lemus, HAND WRAPPER OPERATORSonnyC HAND WRAPPER OPERATOR-Arminda Purcell Donovan ds4 Shonna Mills, RN RN Ivania Moraes vm2 Danilo Nascimento, RN RN rv Corrections: (The following items were deleted from the chart) 11/07 22:42 22:41 Radiology exam delayed due to test not completed at this time. vm2 vm2 11/08 00:35 00:35 Patient did not have IV access during this emergency room visit. bleeding rv controlled, No redness/swelling at site. Pressure dressing applied, rv
[2018-11-08] MEDS ORDERED: CEFTRIAXONE/SWI 1gm 1 GM/10 ML SYR ONE (00:36)
--- NOTE | 2018-11-08 08:15 | RAD REPORT ---
EXAM DESCRIPTION: CT - Stone Protocol - 11/08/2018 3:12 am CLINICAL HISTORY: Flank pain. ABD PAIN COMPARISON: Abdomen Pelvis W Contrast dated 07/22/2018; Stone Protocol dated 07/02/2018 TECHNIQUE: Axial images were obtained without oral or IV contrast. Lack of contrast limits solid org an and vascular assessment. The [id number] spans the entirety of the system partially obscuring uppermost abdomen and lung bases. Coronal reformatted images were obtained and reviewed. All CT scans are performed using dose optimization technique as appropriate and may include automated exposure control or mA/KV adjustment according to patient size. FINDINGS: The lower lung lemos are clear. Imaged portions of the liver and spleen show no suspicious findings on non-contrast imaging. The panc reas and adrenal glands are normal. No pathologic lymphadenopathy in the abdomen or pelvis. Small stones are present in the calices of both kidney without hydronephrosis. No bowel obstruction, free air, free fluid or abscess. Normal appendix noted.Moderate fecal load. No significant bony abnormality. IMPRESSION: Punctate bilateral nephrolithiasis without hydronephrosis.
== END 2018-11-08 00:36 | disposition home or self-care (01) ==
LOC: ER 21:33
DX: N39.0 Urinary tract infection, site not specified (principal); F17.210 Nicotine dependence, cigarettes, uncomplicated; Z88.6 Allergy status to analgesic agent; Z88.5 Allergy status to narcotic agent; Z91.048 Other nonmedicinal substance allergy status
CPT/HCPCS: 36415; 74176; 76377; 80048; 81003; 81015; 81025; 85025; 87804; J0696; J2405; J3010

== ENCOUNTER 2018-11-12 15:55 | Emergency (ER) | payer OTHER ==
[2018-11-12 16:54] LABS: Absolute Lymphocytes (CBC) 1.4 K/uL (0.7-4.9); Absolute Monocytes 0.4 K/uL (0.1-1.3); Basophils % 0.3 % (0-1.3); Eosinophils % 0.5 % (0-4.4); Hematocrit 36.7 % (36.0-45.0); Lymphocytes % 17.3 % (15.3-44.8); MPV 6.9 fL (7.6-11.3); Monocytes % 5.6 % (3.3-12.3); RBC Red Blood Cell Count 4.18 M/uL (3.86-4.86)
[2018-11-12] MEDS ORDERED: NA CHLORIDE 0.9% 1,000 ML ONE (17:07)
[2018-11-12] MEDS ORDERED: MORPHINE 4 MG/ML SYR ONE (17:07)
[2018-11-12] MEDS ORDERED: ONDANSETRON 4 MG/2 ML VIAL ONE (17:07)
[2018-11-12 17:16] LABS: ALT/SGPT 31 U/L (12-78); AST/SGOT 24 U/L (15-37); Albumin 3.9 g/dL (3.4-5.0); Alkaline Phosphatase 61 U/L (45-117); BUN Blood Urea Nitrogen 14 mg/dL (7-18); Bicarbonate 27 mmol/L (21-32); Bilirubin Direct < 0.1 mg/dL (0-0.2); Bilirubin Total 0.4 mg/dL (0.2-1.0); Glucose Level 93 mg/dL (74-106); Lipase 63 U/L (73-393); Potassium 3.8 mmol/L (3.5-5.1); Protein, Total 7.3 g/dL (6.4-8.2); Sodium Level 141 mmol/L (136-145)
--- NOTE | 2018-11-12 17:48 | RAD REPORT ---
EXAM DESCRIPTION: US - Renal Ultrasound-Complete - 11/12/2018 5:35 pm CLINICAL HISTORY: Abdominal pain/ bilateral flank pain. COMPARISON: None. FINDINGS: The right kidney measures 10 cm with a normal echotexture. The left kidney measures 9 cm with a normal echotexture. The A couple of punctate echogenic structures within each kidney represent calculi. Hydronephrosis is not seen No gross abnormality of bladder is noted. IMPRESSION: Tiny nonobstructing bilateral renal calculi
--- NOTE | 2018-11-12 17:51 | RAD REPORT ---
EXAM DESCRIPTION: RAD - Abdomen 1 View (KUB) - 11/12/2018 5:23 pm CLINICAL HISTORY: Abdomen pain. FINDINGS: The bowel gas pattern is unremarkable. A large amount stool is present throughout the colon. Patient's known tiny renal calculi are not clearly seen on this exam. There are multiple calcifications within the pelvis which may represent phleboliths. Tubal ligation clips are noted
--- NOTE | 2018-11-12 18:43 | ER ---
Nurse's Notes [facility] Name: Alex Walker Age: 33 yrs Sex: Female : 1985 Arrival Date: 11/12/2018 Time: 15:59 Bed 14 Private MD: Diagnosis: Calculus of kidney-Bilateral;Urinary tract infection, site not specified Presentation: 11/12 16:12 Presenting complaint: Patient states: Jasper mid back pain that began at 0130 this ph morning, radiates to jasper flanks, lower abdomen and jasper upper legs, states, " I thought it was cramps from my period and I took Midol, and Motrin and tried a heating pad and nothing helped." Denies N/V or urinary symptoms, states, " I was here a few days ago and dx w/ a UTI but I haven't had any symptoms." Currently taking Macrobid. Transition of care: patient was not received from another setting of care. Onset of symptoms was November 12, 2018. Risk Assessment: Do you want to hurt yourself or someone else? Patient reports no desire to harm self or others. Initial Sepsis Screen: Does the patient meet any 2 criteria? No. Patient's initial sepsis screen is negative. Care prior to arrival: Medication(s) given: Motrin, at 1430. 16:12 Method Of Arrival: Ambulatory ph 16:12 Acuity: MARIA GUADALUPE 3 ph 19:37 Initial Sepsis Screen: Does the patient have a suspected source of infection? No. jd3 Patient's initial sepsis screen is negative. 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 - Social history:: Smoking status: Patient uses tobacco products, 1/2 pack every 3 days. - Ebola Screening: : No symptoms or risks identified at this time. Screenin:55 Abuse screen: Denies threats or abuse. Nutritional screening: No deficits noted. rb1 Tuberculosis screening: No symptoms or risk factors identified. Fall Risk None identified. Assessment: 16:10 General: Appears uncomfortable, Behavior is calm, cooperative. Pain: Complains of pain rb1 in mid back area Pain radiates to abdomen Pain currently is 9 out of 10 on a pain scale. Neuro: Level of Consciousness is awake, alert, obeys commands, Oriented to person, place, time, situation. Cardiovascular: Capillary refill < 3 seconds is brisk in bilateral fingers. Respiratory: Airway is patent Respiratory effort is even, unlabored, Respiratory pattern is regular, symmetrical. GI: Reports nausea. : Reports currently being treated for a UTI. Derm: Skin is pink, warm \\T\\ dry. Musculoskeletal: Range of motion: intact in all extremities. 17:00 Reassessment: Patient appears in no apparent distress at this time. No changes from rb1 previously documented assessment. 17:05 Reassessment: US at bedside. rb1 17:55 Reassessment: Performed a straight cath for urine specimen, pt. tolerated well. rb1 Specimen sent to lab. 18:18 Reassessment: Patient appears in no apparent distress at this time. Patient and/or rb1 family updated on plan of care and expected duration. Pain level reassessed. Patient is alert, oriented x 3, equal unlabored respirations, skin warm/dry/pink. pain 7/10. 19:00 Reassessment: Provider wants the pt. to receive the whole liter of NS before being rb1 discharged. NS is infusing. 19:20 Reassessment: Patient appears in no apparent distress at this time. No changes from jd3 previously documented assessment. Patient and/or family updated on plan of care and expected duration. Pain level reassessed. Patient is alert, oriented x 3, equal unlabored respirations, skin warm/dry/pink. awaiting IV fluids to infuse before discharge. Vital Signs: 16:17 BP 141 / 92; Pulse 84; Resp 22; Temp 98.0; Pulse Ox 100% on R/A; Weight 77.11 kg; ph Height 5 ft. 4 in. (162.56 cm); Pain 8/10; 17:15 BP 141 / 92; Pulse 82; Resp 19; Pulse Ox 100% on R/A; rb1 18:15 BP 120 / 78; Pulse 65; Resp 17; Pulse Ox 100% ; Pain 7/10; rb1 19:20 BP 114 / 69; Pulse 60; Resp 16 S; Pulse Ox 100% on R/A; jd3 16:17 Body Mass Index 29.18 (77.11 kg, 162.56 cm) ph ED Course: 15:59 Patient arrived in ED. mr 16:07 Deondre Hancock PA is PHCP. cp 16:07 Juan Hughes MD is Attending Physician. cp 16:15 Triage completed. ph 16:16 Mary Cruz, RN is Primary Nurse. rb1 16:17 Arm band placed on Patient placed in an exam room, on a stretcher. ph 16:45 Inserted saline lock: 22 gauge in left antecubital area, using aseptic technique. Blood rb1 collected. 17:20 XRAY Abdomen 1 View (KUB) In Process Unspecified. EDMS 17:35 US Rp Exam Complete In Process Unspecified. EDMS 17:55 Patient has correct armband on for positive identification. Placed in gown. Bed in low rb1 position. Call light in reach. Side rails up X 1. Pulse ox on. NIBP on. Warm blanket given. 18:41 Adair Michelle MD is Referral Physician. cp 19:00 Report given to ANIRUDH Tao. rb1 19:36 No provider procedures requiring assistance completed. IV discontinued, intact, jd3 bleeding controlled, No redness/swelling at site. Pressure dressing applied. Administered Medications: 17:02 Drug: Zofran 4 mg Route: IVP; Site: left antecubital; rb1 17:20 Follow up: Response: No adverse reaction; Nausea is decreased rb1 17:03 Drug: morphine 4 mg Route: IVP; Site: left antecubital; rb1 17:20 Follow up: Response: No adverse reaction; Pain is decreased rb1 17:04 Drug: NS 0.9% 1000 ml Route: IV; Rate: 1 bolus; Site: left antecubital; rb1 19:38 Follow up: Response: No adverse reaction; IV Status: Completed infusion; IV Intake: jd3 1000ml 18:45 Not Given (Order changed to IVP): Rocephin - (cefTRIAXone) 1 grams IVPB once over 30 rb1 mins; (mix in 50 mL NS) give once urine sample is obtained 18:55 Drug: Rocephin 1 grams Route: IV; Rate: calculated rate; Site: left antecubital; rb1 19:37 Follow up: Response: No adverse reaction; IV Status: Completed infusion jd3 Intake: 19:38 IV: 1000ml; Total: 1000ml. jd3 Outcome: 18:42 Discharge ordered by . cp 19:37 Discharged to home ambulatory, with family. jd3 19:37 Condition: stable 19:37 Discharge instructions given to patient, Instructed on discharge instructions, follow up and referral plans. medication usage, Demonstrated understanding of instructions, follow-up care, medications, Prescriptions given X 3. 19:38 Patient left the ED. jd3 Signatures: Dispatcher [employer] EDIA Karla Aldridge Nela White, RN RN ph Deondre Hancock, NILES PA Mary Dixon, RN RN rb1 Mauri Valladares RN RN jd3
--- NOTE | 2018-11-12 18:43 | EDPHYS ---
Physician Documentation [facility] Name: Alex Walker Age: 33 yrs Sex: Female : 1985 Arrival Date: 11/12/2018 Time: 15:59 Bed 14 Private MD: ED Physician Juan Hughes HPI: 11/12 16:30 This 33 yrs old Female presents to ER via Ambulatory with complaints of Back cp Pain. 16:30 The patient presents with pain that is acute, with no known mechanism of injury, and cp tenderness. The symptoms are located in the mid back area. Onset: The symptoms/episode began/occurred this morning. The pain radiates to the abdomen, right leg and left leg. Associated signs and symptoms: Pertinent negatives: constipation, fever, incontinence, numbness, urinary retention, weakness. 16:30 The patient has been recently seen at the [facility] Emergency cp Department, last week, for similar complaints CT scan was performed, diagnosed with UTI and started on oral macrobid. 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 - Social history:: Smoking status: Patient uses tobacco products, 1/2 pack every 3 days. - Ebola Screening: : No symptoms or risks identified at this time. ROS: 16:35 Constitutional: Negative for body aches, chills, fever, poor PO intake. cp 16:35 Eyes: Negative for injury, pain, redness, and discharge. cp 16:35 Cardiovascular: Negative for chest pain, edema, palpitations. 16:35 Respiratory: Negative for cough, shortness of breath, wheezing. 16:35 Abdomen/GI: Positive for abdominal pain, nausea, Negative for vomiting, diarrhea, constipation, black/tarry stool, rectal bleeding. 16:35 Back: Positive for flank pain, bilaterally. 16:35 : Negative for vaginal bleeding, vaginal discharge. 16:35 Skin: Negative for cellulitis, rash. 16:35 Neuro: Negative for altered mental status, headache, weakness. 16:35 All other systems are negative. Exam: 16:42 Constitutional: The patient appears in no acute distress, alert, awake, non-toxic, well cp developed, well nourished, uncomfortable. 16:42 Head/Face: Normocephalic, atraumatic. cp 16:42 Eyes: Periorbital structures: appear normal, Conjunctiva: normal, no exudate, no injection, Sclera: no appreciated abnormality, Lids and lashes: appear normal, bilaterally. 16:42 ENT: External ear(s): are unremarkable, Nose: is normal, Mouth: Lips: moist, Oral mucosa: pink and intact, moist, Posterior pharynx: is normal, airway is patent, no erythema, no exudate. 16:42 Chest/axilla: Inspection: normal, Palpation: is normal, no crepitus, no tenderness. 16:42 Cardiovascular: Rate: normal, Rhythm: regular. 16:42 Respiratory: the patient does not display signs of respiratory distress, Respirations: normal, no use of accessory muscles, no retractions, no splinting, no tachypnea, labored breathing, is not present, Breath sounds: are clear throughout, no decreased breath sounds, no stridor, no wheezing. 16:42 Abdomen/GI: Inspection: abdomen appears normal, Bowel sounds: active, all quadrants, Palpation: soft, in all quadrants, moderate abdominal tenderness, in the abdomen diffusely, rebound tenderness, is not appreciated, involuntary guarding, is not appreciated. 16:42 Back: pain, that is moderate, of the mid back area, ROM is painful. 16:42 Musculoskeletal/extremity: Exam is negative for decreased range of motion, deformity, injury. 16:42 Skin: cellulitis, is not appreciated, no rash present. 16:42 Neuro: Orientation: to person, place \T\ time. Mentation: is normal, Cerebellar function: is grossly normal, Motor: moves all fours, strength is normal, Sensation: is normal. Vital Signs: 16:17 BP 141 / 92; Pulse 84; Resp 22; Temp 98.0; Pulse Ox 100% on R/A; Weight 77.11 kg; ph Height 5 ft. 4 in. (162.56 cm); Pain 8/10; 17:15 BP 141 / 92; Pulse 82; Resp 19; Pulse Ox 100% on R/A; rb1 18:15 BP 120 / 78; Pulse 65; Resp 17; Pulse Ox 100% ; Pain 7/10; rb1 19:20 BP 114 / 69; Pulse 60; Resp 16 S; Pulse Ox 100% on R/A; jd3 16:17 Body Mass Index 29.18 (77.11 kg, 162.56 cm) ph MDM: 16:07 Patient medically screened. cp 17:00 Differential diagnosis: Cholelithiasis chronic back pain, Hydronephrosis cp Pyelonephritis Ureterolithiasis. 18:40 Data reviewed: vital signs, nurses notes, old medical records, lab test result(s), cp radiologic studies, plain films, ultrasound, I have discussed the patient's presentation/case with the attending Emergency Department Physician; and as a result, I will discharge patient. 18:40 Counseling: I had a detailed discussion with the patient and/or guardian regarding: the cp historical points, exam findings, and any diagnostic results supporting the discharge/admit diagnosis, lab results, radiology results, to return to the emergency department if symptoms worsen or persist or if there are any questions or concerns that arise at home. Response to treatment: the patient's symptoms have markedly improved after treatment, and as a result, I will discharge patient. 11/12 16:28 Order name: Basic Metabolic Panel; Complete Time: 17:46 cp 11/12 17:46 Interpretation: Normal except: CL 110. cp 11/12 16:28 Order name: CBC with Diff; Complete Time: 17:04 cp 11/12 17:04 Interpretation: Normal except: MPV 6.9; MARY% 76.3. cp 11/12 16:28 Order name: Creatinine for Radiology; Complete Time: 17:46 cp 11/12 16:28 Order name: Hepatic Function; Complete Time: 17:46 cp 11/12 16:28 Order name: Lipase; Complete Time: 17:46 cp 11/12 17:46 Interpretation: LIP 63; Reviewed. cp 11/12 16:28 Order name: Urine Microscopic Only cp 11/12 16:30 Order name: Urine Dipstick--Ancillary (enter results) bd 11/12 16:30 Order name: Urine --Ancillary (enter results) bd 11/12 16:33 Order name: US Rp Exam Complete; Complete Time: 17:52 cp 11/12 16:33 Order name: XRAY Abdomen 1 View (KUB) 11/12 18:03 Order name: Urine Culture 11/12 18:06 Order name: Urine Dipstick--Ancillary (enter results) 11/12 16:28 Order name: IV Saline Lock; Complete Time: 18:10 11/12 16:28 Order name: Labs collected and sent; Complete Time: 18:10 11/12 16:28 Order name: Urine Dipstick-Ancillary (obtain specimen); Complete Time: 16:33 11/12 16:28 Order name: Urine Test (obtain specimen); Complete Time: 16:33 cp 11/12 16:28 Order name: Cath; Complete Time: 18:05 cp Administered Medications: 17:02 Drug: Zofran 4 mg Route: IVP; Site: left antecubital; rb1 17:20 Follow up: Response: No adverse reaction; Nausea is decreased rb1 17:03 Drug: morphine 4 mg Route: IVP; Site: left antecubital; rb1 17:20 Follow up: Response: No adverse reaction; Pain is decreased rb1 17:04 Drug: NS 0.9% 1000 ml Route: IV; Rate: 1 bolus; Site: left antecubital; rb1 19:38 Follow up: Response: No adverse reaction; IV Status: Completed infusion; IV Intake: jd3 1000ml 18:45 Not Given (Order changed to IVP): Rocephin - (cefTRIAXone) 1 grams IVPB once over 30 rb1 mins; (mix in 50 mL NS) give once urine sample is obtained 18:55 Drug: Rocephin 1 grams Route: IV; Rate: calculated rate; Site: left antecubital; rb1 19:37 Follow up: Response: No adverse reaction; IV Status: Completed infusion jd3 Disposition: 11/12/18 18:42 Discharged to Home. Impression: Calculus of kidney - Bilateral, Urinary tract infection, site not specified. - Condition is Stable. - Discharge Instructions: Kidney Stones, Urinary Tract Infection, Adult. - Prescriptions for Zofran 4 mg Oral Tablet - take 1 tablet by ORAL route every 12 hours As needed; 20 tablet. Tramadol 50 mg Oral Tablet - take 1 tablet by ORAL route every 8 hours as needed; 15 tablet. cefpodoxime 200 mg Oral Tablet - take 1 tablet by ORAL route every 12 hours for 10 days with food; 20 tablet. - Medication Reconciliation Form, Thank You Letter, Antibiotic Education, Prescription Opioid Use form. - Follow up: Adair Michelle MD; When: 1 - 2 days; Reason: Recheck today's complaints. - Problem is an ongoing problem. - Symptoms have improved. Addendum: 11/15/2018 09:24 Co-signature as Attending Physician, Juan Hughes MD. g s Signatures: Dispatcher [employer] EDIA Nela White RN RN ash Hancock, Deondre, PA PA cp Mary Cruz, RN RN rb1 Juan Hughes MD MD Mauri Valladares RN RN jd3 Corrections: (The following items were deleted from the chart) 11/12 19:38 18:42 11/12/2018 18:42 Discharged to Home. Impression: Calculus of kidney - Bilateral; jd3 Urinary tract infection, site not specified. Condition is Stable. Forms are Medication Reconciliation Form, Thank You Letter, Antibiotic Education, Prescription Opioid Use. Follow up: Adair Michelle; When: 1 - 2 days; Reason: Recheck today's complaints. Problem is an ongoing problem. Symptoms have improved. cp
[2018-11-12] MEDS ORDERED: CEFTRIAXONE/SWI 1gm 1 GM/10 ML SYR ONE (18:59)
[2018-11-12 19:03] LABS: Urine Bacteria <20 /HPF (<20); Urine Culture Reflex Order NOT NEEDED
[2018-11-12 20:03] LABS: Urine Blood 3+ (NEG); Urine Glucose NEGATIVE (NEG); Urine Protein TRACE (NEG); Urine pH 5.5 (5.0-7.0)
[2018-11-12 20:04] LABS: Urine Blood 2+ (NEG); Urine Glucose NEGATIVE (NEG); Urine Protein NEGATIVE (NEG)
== END 2018-11-12 19:38 | disposition home or self-care (01) ==
LOC: ER 15:55
DX: N20.0 Calculus of kidney (principal); N39.0 Urinary tract infection, site not specified; F17.210 Nicotine dependence, cigarettes, uncomplicated
CPT/HCPCS: 36415; 74018; 76770; 80048; 80076; 81003; 81015; 81025; 83690; 85025; 87086; 87088; 96361; 96365; 96375; 99284; J0696; J2405; J7030

== ENCOUNTER 2019-01-15 20:50 | Emergency (ER) | payer OTHER ==
[2019-01-15 23:23] LABS: Absolute Lymphocytes (CBC) 2.6 K/uL (0.7-4.9); Absolute Monocytes 0.5 K/uL (0.1-1.3); Absolute Neutrophil 3.7 K/uL (1.8-8.0); Eosinophils % 1.7 % (0-4.4); Hematocrit 37.2 % (36.0-45.0); Lymphocytes % 37.3 % (15.3-44.8); MPV 7.1 fL (7.6-11.3); Monocytes % 7.7 % (3.3-12.3); RBC Red Blood Cell Count 4.23 M/uL (3.86-4.86)
[2019-01-15] MEDS ORDERED: ONDANSETRON 4 MG/2 ML VIAL ONE (23:43)
[2019-01-15] MEDS ORDERED: MORPHINE 2 MG/ML SYR ONE (23:43)
[2019-01-15 23:55] LABS: Urine Blood 3+ (NEG); Urine Glucose NEGATIVE (NEG); Urine Protein NEGATIVE (NEG)
[2019-01-16] MEDS ORDERED: DIPHENHYDRAMINE 50 MG/ML VIAL ONE (00:27)
--- NOTE | 2019-01-16 00:30 | EDPHYS ---
Physician Documentation [facility] Name: Alex Walker Age: 33 yrs Sex: Female : 1985 Arrival Date: 01/15/2019 Time: 21:10 Bed 4 Private MD: ED Physician Juan Hughes HPI: 01/15 22:20 This 33 yrs old Female presents to ER via Ambulatory with complaints of jmm Vaginal Bleeding. 22:20 The patient presents with vaginal bleeding that is heavy, with clots. Onset: The jmm symptoms/episode began/occurred gradually, 2 week(s) ago. Modifying factors: The symptoms are alleviated by nothing, the symptoms are aggravated by nothing. Associated signs and symptoms: Pertinent positives: vaginal discharge. This is a 33 year old female with a history of asthma that presents to the ED with complaints of vaginal bleeding beginning approx 2 weeks ago. Patient states she had a positive test at home. Patient also complaints of vaginal discharge. . 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 - Social history:: Smoking status: Patient uses tobacco products, smokes one-half pack cigarettes per day. - Ebola Screening: : No symptoms or risks identified at this time. ROS: 22:20 Constitutional: Negative for fever, chills, and weight loss, Cardiovascular: Negative jmm for chest pain, palpitations, and edema, Respiratory: Negative for shortness of breath, cough, wheezing, and pleuritic chest pain. 22:20 : Positive for pelvic pain, vaginal bleeding, vaginal discharge. 22:20 All other systems are negative. Exam: 22:20 Head/Face: atraumatic. Eyes: EOMI, no conjunctival erythema appreciated ENT: Moist jmm Mucus Membranes Neck: Trachea midline, Supple Chest/axilla: Normal chest wall appearance and motion. Cardiovascular: Regular rate and rhythm. No edema appreciated Respiratory: Normal respirations, no respiratory distress appreciated 22:20 Skin: General appearance color normal MS/ Extremity: Moves all extremities, no obvious deformities appreciated, no edema noted to the lower extremities Neuro: Awake and alert, normal gait Psych: Behavior is normal, Mood is normal, Patient is cooperative and pleasant 22:20 Constitutional: The patient appears alert, awake, anxious, uncomfortable. 22:20 Abdomen/GI: Inspection: abdomen appears normal, Bowel sounds: normal, Palpation: soft, in all quadrants. 22:20 : Pelvic Exam: External exam: is normal, Speculum exam: mild bleeding, os that is closed. Vital Signs: 21:22 BP 139 / 89; Pulse 74; Resp 18; Temp 98.5(O); Pulse Ox 100% on R/A; Weight 80.74 kg; lp1 Height 5 ft. 1 in. (154.94 cm); Pain 7/10; 22:18 BP 127 / 63; Pulse 71; Resp 17 S; Pulse Ox 100% on R/A; cc3 23:46 BP 124 / 47; Pulse 68; Resp 17 S; Pulse Ox 98% on R/A; cc3 01/16 00:25 BP 128 / 59; Pulse 65; Resp 17 S; Pulse Ox 98% on R/A; cc3 01/15 21:22 Body Mass Index 33.63 (80.74 kg, 154.94 cm) lp1 MDM: 01/15 22:20 Patient medically screened. [facility] 01/16 00:28 Data reviewed: vital signs, nurses notes. Counseling: I had a detailed discussion with [facility] the patient and/or guardian regarding: the historical points, exam findings, and any diagnostic results supporting the discharge/admit diagnosis, the need for outpatient follow up, to return to the emergency department if symptoms worsen or persist or if there are any questions or concerns that arise at home. 00:44 Data reviewed: lab test result(s). Counseling: I had a detailed discussion with the [facility] patient and/or guardian regarding: lab results, radiology results. 00:44 ED course: UPT negative. US revealed flow to both ovaries and no masses concerning for [facility] TOA. Patient administered antibiotics due to concerns of PID. Patient is given follow up with obgyn and otherwise given strict return precautions. patient understood and agrees with the plan of care. . 01/15 22:30 Order name: CBC with Diff; Complete Time: 23:25 [facility] 01/15 22:30 Order name: BMP; Complete Time: 23:40 [facility] 01/15 22:33 Order name: Urine Dipstick--Ancillary (enter results); Complete Time: 00:00 [facility] 01/15 22:33 Order name: Urine --Ancillary (enter results); Complete Time: 00:00 [facility] 01/16 00:12 Order name: GC (GONORR/CHLAMYDIA) Probe [facility] 01/15 22:19 Order name: Urine Dipstick-Ancillary (obtain specimen); Complete Time: 22:35 [facility] 01/15 22:19 Order name: Urine Test (obtain specimen); Complete Time: 22:35 [facility] 01/15 22:31 Order name: Transvaginal Study Probe [facility] 01/15 22:30 Order name: Saline Lock; Complete Time: 23:10 jm Administered Medications: 01/15 23:35 Drug: morphine 2 mg Route: IVP; Site: left antecubital; cc3 01/16 00:00 Follow up: Response: No adverse reaction; Pain is decreased cc3 01/15 23:39 Drug: Zofran 4 mg Route: IVP; Site: left antecubital; cc3 01/16 00:00 Follow up: Response: No adverse reaction; Nausea is decreased cc3 00:15 Drug: diphenhydrAMINE 12.5 mg Route: IVP; Site: left antecubital; cc3 00:40 Follow up: Response: No adverse reaction cc3 00:35 Drug: AZITHromycin 1 grams Route: PO; cc3 00:45 Follow up: Response: No adverse reaction cc3 00:42 Drug: Rocephin (cefTRIAXone) 250 mg Route: IM; Site: right gluteus; cc3 00:50 Follow up: Response: No adverse reaction cc3 Disposition: 05:16 Co-signature as Attending Physician, Juan Hughes MD. Disposition: 01/16/19 00:29 Discharged to Home. Impression: Abnormal uterine and vaginal bleeding, unspecified, Pelvic and perineal pain. - Condition is Stable. - Discharge Instructions: Abnormal Uterine Bleeding, Pelvic Pain, Female. - Prescriptions for Ultram 50 mg Oral Tablet - take 1 tablet by ORAL route every 6 hours As needed; 20 tablet. - Medication Reconciliation Form, Thank You Letter, Antibiotic Education, Prescription Opioid Use form. - Follow up: Maria D Camilo MD; When: 2 - 3 days; Reason: Recheck today's complaints, Continuance of care, Re-evaluation by your physician. Signatures: Dispatcher [employer] [facility] Dov Torres PA PA jmm Pena, Laura, RN RN lp1 Juan Hughes MD MD Tasha Marcial cc3 Corrections: (The following items were deleted from the chart) 01/15 22:31 22:30 Pelvis Complete+[id number].RAD.BRZ ordered. [facility] 01/16 00:59 00:29 01/16/2019 00:29 Discharged to Home. Impression: Abnormal uterine and vaginal cc3 bleeding, unspecified; Pelvic and perineal pain. Condition is Stable. Forms are Medication Reconciliation Form, Thank You Letter, Antibiotic Education, Prescription Opioid Use. Follow up: Maria D Camilo; When: 2 - 3 days; Reason: Recheck today's complaints, Continuance of care, Re-evaluation by your physician. antione
--- NOTE | 2019-01-16 00:30 | ER ---
Nurse's Notes [facility] Name: Alex Walker Age: 33 yrs Sex: Female : 1985 Arrival Date: 01/15/2019 Time: 21:10 Bed 4 Private MD: Diagnosis: Abnormal uterine and vaginal bleeding, unspecified;Pelvic and perineal pain Presentation: 01/15 21:19 Presenting complaint: Patient states: Had tubal ligation 2 years ago, but 2 weeks ago, lp1 began having heavy vaginal bleeding; Took home test that was positive; States having dark bleeding with clots, pain to right pelvic area. Transition of care: patient was not received from another setting of care. Onset of symptoms was January 15, 2019. Risk Assessment: Do you want to hurt yourself or someone else? Patient reports no desire to harm self or others. Initial Sepsis Screen: Does the patient meet any 2 criteria? No. Patient's initial sepsis screen is negative. Does the patient have a suspected source of infection? No. Patient's initial sepsis screen is negative. Care prior to arrival: None. 21:19 Method Of Arrival: Ambulatory lp1 21:19 Acuity: MARIA GUADALUPE 3 lp1 Triage Assessment: 21:23 General: Appears uncomfortable, Behavior is appropriate for age. Pain: Complains of lp1 pain in suprapubic area Pain currently is 7 out of 10 on a pain scale. : Reports vaginal bleeding that is with clots, heavy flow. 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 - Social history:: Smoking status: Patient uses tobacco products, smokes one-half pack cigarettes per day. - Ebola Screening: : No symptoms or risks identified at this time. Screenin:23 Abuse screen: Denies threats or abuse. Denies injuries from another. Nutritional lp1 screening: No deficits noted. Tuberculosis screening: No symptoms or risk factors identified. Fall Risk None identified. Assessment: 22:15 General: Appears in no apparent distress. comfortable, Behavior is calm, cooperative, cc3 appropriate for age. Pain: Denies pain. Neuro: Level of Consciousness is awake, alert, obeys commands, Oriented to person, place, time, situation, Appropriate for age. Cardiovascular: Denies chest pain, Patient's skin is warm and dry. Respiratory: Airway is patent Respiratory effort is even, unlabored, Respiratory pattern is regular, symmetrical. GI: Abdomen is round non-distended. : Urine is blood tinged. EENT: No signs and/or symptoms were reported regarding the EENT system. Derm: Rash noted that is itchy, red, on abdomen and suprapubic area, bilateral arms and legs. Musculoskeletal: Circulation, motion, and sensation intact. Range of motion: intact in all extremities. 23:30 Reassessment: Patient appears in no apparent distress at this time. Patient and/or cc3 family updated on plan of care and expected duration. Pain level reassessed. Patient is alert, oriented x 3, equal unlabored respirations, skin warm/dry/pink. 01/16 00:00 Reassessment: Patient appears in no apparent distress at this time. Patient and/or cc3 family updated on plan of care and expected duration. Pain level reassessed. Patient is alert, oriented x 3, equal unlabored respirations, skin warm/dry/pink. 00:15 Reassessment: Patient and/or family updated on plan of care and expected duration. Pain cc3 level reassessed. Patient is alert, oriented x 3, equal unlabored respirations, skin warm/dry/pink. After patient came back from bathroom she said she's having generalized itchiness and that she feels that she's become agitated, NILES Torres informed with new orders made and carried out. 00:59 Reassessment: Patient appears in no apparent distress at this time. Patient and/or cc3 family updated on plan of care and expected duration. Pain level reassessed. Patient is alert, oriented x 3, equal unlabored respirations, skin warm/dry/pink. NILES Torres discharged the patient home with prescription given. No IV cannula in situ. Patient left ER vitally stable and ambulatory. Patient states feeling better. Patient states symptoms have improved. Vital Signs: 01/15 21:22 BP 139 / 89; Pulse 74; Resp 18; Temp 98.5(O); Pulse Ox 100% on R/A; Weight 80.74 kg; lp1 Height 5 ft. 1 in. (154.94 cm); Pain 7/10; 22:18 BP 127 / 63; Pulse 71; Resp 17 S; Pulse Ox 100% on R/A; cc3 23:46 BP 124 / 47; Pulse 68; Resp 17 S; Pulse Ox 98% on R/A; cc3 01/16 00:25 BP 128 / 59; Pulse 65; Resp 17 S; Pulse Ox 98% on R/A; cc3 01/15 21:22 Body Mass Index 33.63 (80.74 kg, 154.94 cm) lp1 ED Course: 01/15 21:10 Patient arrived in ED. es 21:21 Triage completed. lp1 21:23 Arm band placed on right wrist. lp1 22:15 Tasha Marcial is Primary Nurse. cc3 22:15 Patient has correct armband on for positive identification. Bed in low position. Call cc3 light in reach. Side rails up X 1. Pulse ox on. NIBP on. 22:19 Dov Torres PA is PHCP. jmm 22:19 Juan Hughes MD is Attending Physician. jm 22:56 Transvaginal Study Probe In Process Unspecified. EDMS 23:05 Inserted saline lock: 20 gauge in left antecubital area, using aseptic technique. Blood cc3 collected. 01/16 00:28 Maria D Camilo MD is Referral Physician. [facility] 00:59 No provider procedures requiring assistance completed. Patient did not have IV access cc3 during this emergency room visit. Administered Medications: 01/15 23:35 Drug: morphine 2 mg Route: IVP; Site: left antecubital; cc3 01/16 00:00 Follow up: Response: No adverse reaction; Pain is decreased cc3 01/15 23:39 Drug: Zofran 4 mg Route: IVP; Site: left antecubital; cc3 01/16 00:00 Follow up: Response: No adverse reaction; Nausea is decreased cc3 00:15 Drug: diphenhydrAMINE 12.5 mg Route: IVP; Site: left antecubital; cc3 00:40 Follow up: Response: No adverse reaction cc3 00:35 Drug: AZITHromycin 1 grams Route: PO; cc3 00:45 Follow up: Response: No adverse reaction cc3 00:42 Drug: Rocephin (cefTRIAXone) 250 mg Route: IM; Site: right gluteus; cc3 00:50 Follow up: Response: No adverse reaction cc3 Outcome: 00:29 Discharge ordered by . antione 00:59 Patient left the ED. cc3 00:59 Discharged to home ambulatory. cc3 00:59 Condition: stable 00:59 Discharge instructions given to patient, Instructed on discharge instructions, follow up and referral plans. medication usage, Demonstrated understanding of instructions, follow-up care, medications, Prescriptions given X 1. Signatures: Dispatcher [employer] Dov Quinteros PA PA jmm Salyer, Edna es Pena, Laura, RN RN lp1 Tasha Marcial cc3 Corrections: (The following items were deleted from the chart) 03:42 03/ 22:15 Derm: No signs and/or symptoms reported regarding the dermatologic system. cc3 cc3 01/16 03:50 00:59 Reassessment: Patient appears in no apparent distress at this time. Patient cc3 and/or family updated on plan of care and expected duration. Pain level reassessed. Patient is alert, oriented x 3, equal unlabored respirations, skin warm/dry/pink. NILES Torres discharged the patient home with prescription given. No IV cannula in situ. Patient left ER vitally stable and ambulatory. cc3
[2019-01-16] MEDS ORDERED: AZITHROMYCIN 250 MG TAB ONE (00:43)
[2019-01-16] MEDS ORDERED: CEFTRIAXONE 250 MG/VIAL ONE (00:43)
[2019-01-16] MEDS ORDERED: WATER FOR INJ,STERILE 10 ML ONE (00:44)
--- NOTE | 2019-01-16 08:12 | RAD REPORT ---
EXAM DESCRIPTION: US - Transvaginal Study Probe - 01/15/2019 10:57 pm CLINICAL HISTORY: Abdominal pain/vaginal bleeding COMPARISON: none FINDINGS: The uterus measures 7 x 4 x 6cm. A fibroid is not seen. Endometrial stripe measures 6 mill imeters. The ovaries are normal in size and echotexture. 1.2 centimeter left ovarian follicle. Right and left adnexa unremarkable performed No significant free fluid is seen. IMPRESSION: Unremarkable pelvic ultrasound
[2019-01-19 08:45] LABS: C.trachomatis RNA,TMA Not Detected (Not Detected)
== END 2019-01-16 00:59 | disposition home or self-care (01) ==
LOC: ER 20:50
DX: N93.9 Abnormal uterine and vaginal bleeding, unspecified (principal); R10.2 Pelvic and perineal pain; J45.909 Unspecified asthma, uncomplicated; Z88.6 Allergy status to analgesic agent; Z88.5 Allergy status to narcotic agent; Z88.8 Allergy status to other drugs, medicaments and biological substances
CPT/HCPCS: 36415; 76830; 80048; 81003; 81025; 85025; 87490; 87590; 96372; 96374; 96375; 99284; J0696; J2270; J2405

== ENCOUNTER 2019-02-08 20:38 | Emergency (ER) | payer OTHER ==
--- OUTSIDE RECORDS SUMMARY | 2019-02-08 20:39 | XMS REPORT ---
:1985 [facility] Address [address] [place] [address] Care Team Providers Name Role Phone Unavailable Unavailable Unavailable Problems This patient has no known problems. Allergies, Adverse Reactions, Alerts This patient has no known allergies or adverse reactions. Medications This patient has no known medications.
[2019-02-08 21:09] LABS: Absolute Lymphocytes (CBC) 2.5 K/uL (0.7-4.9); Absolute Monocytes 0.6 K/uL (0.1-1.3); Absolute Neutrophil 4.6 K/uL (1.8-8.0); Basophils % 0.5 % (0-1.3); Eosinophils % 1.1 % (0-4.4); Hematocrit 36.2 % (36.0-45.0); MPV 6.9 fL (7.6-11.3); Monocytes % 7.3 % (3.3-12.3); RBC Red Blood Cell Count 4.07 M/uL (3.86-4.86)
--- NOTE | 2019-02-08 21:10 | RAD REPORT ---
EXAM DESCRIPTION: RAD - Chest Single View - 02/08/2019 9:03 pm CLINICAL HISTORY: Chest pain COMPARISON: None. TECHNIQUE: AP portable chest image was obtained 2101 hours . FINDINGS: Lungs are clear. Heart and vasculature are normal. No measurable pleural effusion and no p neumothorax. No acute bony abnormality seen. No acute aortic findings suspected. IMPRESSION: No acute cardiopulmonary process.
[2019-02-08 21:20] LABS: Protime INR 0.94
[2019-02-08 21:23] LABS: ALT/SGPT 27 U/L (12-78); AST/SGOT 25 U/L (15-37); Albumin 4.1 g/dL (3.4-5.0); Alkaline Phosphatase 63 U/L (45-117); BUN Blood Urea Nitrogen 13 mg/dL (7-18); Bicarbonate 24 mmol/L (21-32); Bilirubin Direct 0.1 mg/dL (0-0.2); Bilirubin Total 0.3 mg/dL (0.2-1.0); Glucose Level 67 mg/dL (74-106); NT PRO-BNP 30 pg/mL (<125); Potassium 3.3 mmol/L (3.5-5.1); Protein, Total 7.6 g/dL (6.4-8.2); Sodium Level 140 mmol/L (136-145); Troponin (Emerg Dept Use Only) < 0.02 ng/mL (0.0-0.045)
[2019-02-08 21:49] LABS: Barbiturates NEGATIVE (NEGATIVE); Benzodiazepines NEGATIVE (NEGATIVE); Cocaine NEGATIVE (NEGATIVE); METHAMPHETAM NEGATIVE (NEGATIVE); Methadone NEGATIVE (NEGATIVE); Opiates NEGATIVE (NEGATIVE); Phencyclidine NEGATIVE (NEGATIVE); THC Cannibis NEGATIVE (NEGATIVE)
[2019-02-08 22:06] LABS: Urine Blood 2+ (NEG); Urine Glucose NEGATIVE (NEG); Urine Protein NEGATIVE (NEG)
[2019-02-08] MEDS ORDERED: DIAZEPAM 2 MG TABLET ONE (22:26)
[2019-02-08] MEDS ORDERED: POTASSIUM 25 MEQ EFFERV TAB ONE (22:43)
--- NOTE | 2019-02-08 23:53 | ER ---
Nurse's Notes [facility] [place], [place] Name: Alex Walker Age: 33 yrs Sex: Female : 1985 Arrival Date: 02/08/2019 Time: 20:39 Bed 24 Private MD: Diagnosis: Chest pain, unspecified;Acute stress reaction Presentation: 02/08 20:41 Presenting complaint: EMS states: they were toned out for report of pt feeling ill with bb chest pain, sweating, feeling "super hot", SOB. Transition of care: patient was not received from another setting of care. Onset of symptoms was February 08, 2019. Risk Assessment: Do you want to hurt yourself or someone else? Patient reports no desire to harm self or others. Initial Sepsis Screen: Does the patient meet any 2 criteria? No. Patient's initial sepsis screen is negative. Does the patient have a suspected source of infection? No. Patient's initial sepsis screen is negative. Care prior to arrival: Medication(s) given: ASA, 81 mg, x 4. 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 - Social history:: Smoking status: Patient uses tobacco products, smokes one-half pack cigarettes per day, Patient/guardian denies using alcohol, street drugs. - Ebola Screening: : No symptoms or risks identified at this time. Screenin:39 Abuse screen: Denies threats or abuse. Denies injuries from another. Nutritional rv screening: No deficits noted. Tuberculosis screening: No symptoms or risk factors identified. Fall Risk None identified. Assessment: 21:36 General: Appears in no apparent distress. uncomfortable, Behavior is cooperative, rv crying. Pain: Complains of pain in chest. Neuro: Level of Consciousness is awake, alert, obeys commands, Oriented to person, place, time, situation. Cardiovascular: Rhythm is regular Chest pain is described as severe, quality is stabbing, is located in chest wall radiates ACROSS THE CHEST began 2 hours prior to arrival. Respiratory: Airway is patent. GI: No signs and/or symptoms were reported involving the gastrointestinal system. : No signs and/or symptoms were reported regarding the genitourinary system. EENT: No signs and/or symptoms were reported regarding the EENT system. Derm: Skin is intact. Musculoskeletal: No signs and/or symptoms reported regarding the musculoskeletal system. 22:05 Reassessment: Patient appears in no apparent distress at this time. No changes from rv previously documented assessment. Patient and/or family updated on plan of care and expected duration. Pain level reassessed. Patient is alert, oriented x 3, equal unlabored respirations, skin warm/dry/pink. 23:08 Reassessment: Patient appears in no apparent distress at this time. Patient and/or rv family updated on plan of care and expected duration. Pain level reassessed. Patient is alert, oriented x 3, equal unlabored respirations, skin warm/dry/pink. Patient states feeling better. Patient states symptoms have improved. Vital Signs: 20:46 BP 142 / 78; Pulse 95; Resp 18 S; Temp 97.7(O); Pulse Ox 100% on R/A; Weight 81.19 kg bb (R); Height 5 ft. 1 in. (154.94 cm) (R); Pain 9/10; 22:03 BP 134 / 71 RA Sitting; Pulse 84; Resp 20 S; Pulse Ox 100% on R/A; rv 22:03 BP 130 / 77 RA Supine; Pulse 82; Resp 18 S; Pulse Ox 97% on R/A; rv 23:08 BP 121 / 59 RA Supine; Pulse 74; Resp 17 S; Pulse Ox 100% on R/A; rv 02/09 00:00 BP 114 / 67 RA Supine; Pulse 69; Resp 19 S; Pulse Ox 100% on R/A; rv 02/08 20:46 Body Mass Index 33.82 (81.19 kg, 154.94 cm) ED Course: 02/08 20:39 Patient arrived in ED. ds1 20:40 Benja Guzman NP is PHCP. pm1 20:40 Juan Hughes MD is Attending Physician. pm1 20:43 Triage completed. bb 20:45 Inserted saline lock: 20 gauge in left antecubital area, using aseptic technique. Blood rv collected. 20:46 Arm band placed on Patient placed in an exam room, on a stretcher, on pulse oximetry. bb EKG completed in triage. Results shown to MD. 20:59 Danilo Nascimento, RN is Primary Nurse. rv 21:03 XRAY Chest (1 view) In Process Unspecified. EDMS 21:38 Patient has correct armband on for positive identification. Placed in gown. Bed in low rv position. Call light in reach. Side rails up X 1. awning assembler on. Pulse ox on. NIBP on. 02/09 00:01 No provider procedures requiring assistance completed. IV discontinued, intact, rv bleeding controlled, No redness/swelling at site. Pressure dressing applied. Administered Medications: 02/08 22:15 Drug: Valium 2 mg Route: PO; rv 23:07 Follow up: Response: No adverse reaction; Marked relief of symptoms rv 22:40 Drug: Potassium Effervescent Tablet 50 mEq Route: PO; rv 23:07 Follow up: Response: No adverse reaction rv Outcome: 23:51 Discharge ordered by MD. pm1 02/09 00:01 Discharged to home ambulatory. rv Condition: PATIENT VERBALIZED RELIEF AND FEELING BETTER. DENIES PAIN. ALERT, ORIENTED, AND AMBULATORY. Discharge instructions given to patient, family, Instructed on discharge instructions, follow up and referral plans. medication usage, Demonstrated understanding of instructions, follow-up care, medications, Prescriptions given X 1. 00:02 Patient left the ED. rv Signatures: Dispatcher [employer] [facility] Florencia Dunn ds1 Kathy Ritter RN RN bb Benja Guzman, PRODUCTION WOOD CRAFTSMAN PRODUCTION WOOD CRAFTSMAN pm1 Danilo Nascimento, ANIRUDH RN rv
--- NOTE | 2019-02-08 23:53 | EDPHYS ---
Physician Documentation [facility] Name: Alex Walker Age: 33 yrs Sex: Female : 1985 Arrival Date: 02/08/2019 Time: 20:39 Bed 24 Private MD: ED Physician Juan Hughes HPI: 02/08 22:00 This 33 yrs old Female presents to ER via EMS with complaints of Chest pain. pm1 22:00 The patient or guardian reports chest pain that is located primarily in the mid-sternal pm1 area. The pain does not radiate. Associated signs and symptoms: Pertinent positives: anxiety, Pertinent negatives: abdominal pain, cough, nausea, shortness of breath, vomiting. The chest pain is described as sharp. Duration: The patient or guardian reports a single episode, that is still ongoing. Modifying factors: The symptoms are alleviated by nothing. the symptoms are aggravated by emotionally stressful situations. Severity of pain: in the emergency department the pain is actually worse. EMS care prior to arrival includes: aspirin. The patient has not experienced similar symptoms in the past. The patient has not recently seen a physician. Patient with onset of chest pain and hot flash sensation since this AM. Patient reports she is under significant amount of emotional stress recently. 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 - Social history:: Smoking status: Patient uses tobacco products, smokes one-half pack cigarettes per day, Patient/guardian denies using alcohol, street drugs. - Ebola Screening: : No symptoms or risks identified at this time. ROS: 22:00 Constitutional: Negative for fever, chills, and weight loss, Eyes: Negative for injury, pm1 pain, redness, and discharge, ENT: Negative for injury, pain, and discharge, Neck: Negative for injury, pain, and swelling. 22:00 Respiratory: Negative for shortness of breath, cough, wheezing, and pleuritic chest pain, Abdomen/GI: Negative for abdominal pain, nausea, vomiting, diarrhea, and constipation, Back: Negative for injury and pain, : Negative for injury, bleeding, discharge, and swelling, MS/Extremity: Negative for injury and deformity, Skin: Negative for injury, rash, and discoloration, Neuro: Negative for headache, weakness, numbness, tingling, and seizure. 22:00 Cardiovascular: Positive for chest pain, Negative for edema, orthopnea, palpitations. Exam: 22:00 Constitutional: This is a well developed, well nourished patient who is awake, alert, pm1 and in no acute distress. Head/Face: Normocephalic, atraumatic. Eyes: Pupils equal round and reactive to light, extra-ocular motions intact. Lids and lashes normal. Conjunctiva and sclera are non-icteric and not injected. Cornea within normal limits. Periorbital areas with no swelling, redness, or edema. ENT: Nares patent. No nasal discharge, no septal abnormalities noted. Tympanic membranes are normal and external auditory canals are clear. Oropharynx with no redness, swelling, or masses, exudates, or evidence of obstruction, uvula midline. Mucous membranes moist. Neck: Trachea midline, no thyromegaly or masses palpated, and no cervical lymphadenopathy. Supple, full range of motion without nuchal rigidity, or vertebral point tenderness. No Meningismus. Chest/axilla: Normal chest wall appearance and motion. Nontender with no deformity. No lesions are appreciated. Cardiovascular: Regular rate and rhythm with a normal S1 and S2. No gallops, murmurs, or rubs. Normal PMI, no JVD. No pulse deficits. Respiratory: Lungs have equal breath sounds bilaterally, clear to auscultation and percussion. No rales, rhonchi or wheezes noted. No increased work of breathing, no retractions or nasal flaring. Abdomen/GI: Soft, non-tender, with normal bowel sounds. No distension or tympany. No guarding or rebound. No evidence of tenderness throughout. Back: No spinal tenderness. No costovertebral tenderness. Full range of motion. Skin: Warm, dry with normal turgor. Normal color with no rashes, no lesions, and no evidence of cellulitis. MS/ Extremity: Pulses equal, no cyanosis. Neurovascular intact. Full, normal range of motion. 22:00 Neuro: Orientation: is normal, Motor: is normal, Sensation: is normal, no obvious gross deficits, Gait: is steady, at a normal pace, without difficulty. 23:56 ECG was reviewed by the Attending Physician. NSR 88 BPM pm1 Vital Signs: 20:46 BP 142 / 78; Pulse 95; Resp 18 S; Temp 97.7(O); Pulse Ox 100% on R/A; Weight 81.19 kg bb (R); Height 5 ft. 1 in. (154.94 cm) (R); Pain 9/10; 22:03 BP 134 / 71 RA Sitting; Pulse 84; Resp 20 S; Pulse Ox 100% on R/A; rv 22:03 BP 130 / 77 RA Supine; Pulse 82; Resp 18 S; Pulse Ox 97% on R/A; rv 23:08 BP 121 / 59 RA Supine; Pulse 74; Resp 17 S; Pulse Ox 100% on R/A; rv 02/09 00:00 BP 114 / 67 RA Supine; Pulse 69; Resp 19 S; Pulse Ox 100% on R/A; rv 02/08 20:46 Body Mass Index 33.82 (81.19 kg, 154.94 cm) bb MDM: 02/08 20:45 Patient medically screened. pm1 23:51 Data reviewed: vital signs. Data interpreted: Pulse oximetry: on room air is 100 %. pm1 Interpretation: normal. Counseling: I had a detailed discussion with the patient and/or guardian regarding: the historical points, exam findings, and any diagnostic results supporting the discharge/admit diagnosis, lab results, radiology results, the need for outpatient follow up, to return to the emergency department if symptoms worsen or persist or if there are any questions or concerns that arise at home. 02/08 20:46 Order name: Basic Metabolic Panel; Complete Time: 21:46 pm1 02/08 20:46 Order name: CBC with Diff; Complete Time: 21:14 pm1 02/08 20:46 Order name: LFT's; Complete Time: 21:46 pm1 02/08 20:46 Order name: Magnesium; Complete Time: 21:46 pm1 02/08 20:46 Order name: NT PRO-BNP; Complete Time: 21:46 pm1 02/08 20:46 Order name: PT-INR; Complete Time: 21:46 pm1 02/08 20:46 Order name: Troponin (emerg Dept Use Only); Complete Time: 21:46 pm1 02/08 20:46 Order name: XRAY Chest (1 view); Complete Time: 21:14 pm1 02/08 20:46 Order name: UDS; Complete Time: 22:03 pm1 02/08 20:46 Order name: D-Dimer; Complete Time: 21:46 pm1 02/08 21:32 Order name: Urine Dipstick--Ancillary (enter results); Complete Time: 22:09 mw2 02/08 21:32 Order name: Urine --Ancillary (enter results); Complete Time: 22:09 mw2 02/08 22:19 Order name: Glucose, Ancillary Testing; Complete Time: 22:24 EDMS 02/08 23:18 Order name: Troponin (emerg Dept Use Only); Complete Time: 23:50 pm1 02/08 20:46 Order name: EKG; Complete Time: 20:47 pm1 02/08 20:46 Order name: Cardiac monitoring; Complete Time: 20:59 pm1 02/08 20:46 Order name: EKG - Nurse/Tech; Complete Time: 20:59 pm1 02/08 20:46 Order name: IV Saline Lock; Complete Time: 21:00 pm1 02/08 20:46 Order name: Labs collected and sent; Complete Time: 21:00 pm1 02/08 20:46 Order name: O2 Per Protocol; Complete Time: 21:00 pm1 02/08 20:46 Order name: O2 Sat Monitoring; Complete Time: 21:00 pm1 02/08 20:46 Order name: Urine Dipstick-Ancillary (obtain specimen); Complete Time: 21:47 pm1 02/08 20:46 Order name: Urine Test (obtain specimen); Complete Time: 21:47 pm1 Administered Medications: 22:15 Drug: Valium 2 mg Route: PO; rv 23:07 Follow up: Response: No adverse reaction; Marked relief of symptoms rv 22:40 Drug: Potassium Effervescent Tablet 50 mEq Route: PO; rv 23:07 Follow up: Response: No adverse reaction rv Disposition: 02/09 00:17 Co-signature as Attending Physician, Juan Hughes MD. gs Disposition: 02/08/19 23:51 Discharged to Home. Impression: Chest pain, unspecified, Acute stress reaction. - Condition is Stable. - Discharge Instructions: Nonspecific Chest Pain, Stress and Stress Management. - Prescriptions for Valium 2 mg Oral Tablet - take 1 tablet by ORAL route every 8 hours As needed; 10 tablet. - Medication Reconciliation Form, Thank You Letter, Antibiotic Education, Prescription Opioid Use, Work release form form. - Follow up: Emergency Department; When: As needed; Reason: Worsening of condition. Follow up: Private Physician; When: 2 - 3 days; Reason: Recheck today's complaints, Continuance of care, Re-evaluation by your physician. - Problem is new. - Symptoms have improved. Signatures: Dispatcher [employer] EDKathy Oconnor, ANIRUDH RN Benja Martinez, GRIZZLYMAN GRIZZLYMAN pm1 Juan Hughes MD MD Danilo Nascimento RN RN rv Corrections: (The following items were deleted from the chart) 00:02 02/08 23:51 02/08/2019 23:51 Discharged to Home. Impression: Chest pain, unspecified; rv Acute stress reaction. Condition is Stable. Forms are Medication Reconciliation Form, Thank You Letter, Antibiotic Education, Prescription Opioid Use. Follow up: Emergency Department; When: As needed; Reason: Worsening of condition. Follow up: Private Physician; When: 2 - 3 days; Reason: Recheck today's complaints, Continuance of care, Re-evaluation by your physician. Problem is new. Symptoms have improved. pm1
--- NOTE | 2019-02-10 07:49 | EKG ---
Test Date: 2019-02-08 Test Time: 20:53:42 Transformer Assembler: MEASUREMENT RESULTS: Intervals: Rate: 88 KS: 156 QRSD: 96 QT: 396 QTc: 479 [place]: P: 69 KS: 156 QRS: 57 T: 50 INTERPRETIVE STATEMENTS: Normal sinus rhythm Normal ECG No previous ECG available for comparison Electronically Signed On 02-10-19 07:48:11 CDT by Taz Gonzales
== END 2019-02-09 00:02 | disposition home or self-care (01) ==
LOC: ER 20:38
DX: R07.9 Chest pain, unspecified (principal); F43.0 Acute stress reaction; J45.909 Unspecified asthma, uncomplicated; E28.2 Polycystic ovarian syndrome; F31.9 Bipolar disorder, unspecified; Z88.6 Allergy status to analgesic agent; Z88.5 Allergy status to narcotic agent; Z88.8 Allergy status to other drugs, medicaments and biological substances; F17.210 Nicotine dependence, cigarettes, uncomplicated
CPT/HCPCS: 36415; 71045; 80048; 80076; 80307; 81003; 81025; 82962; 83735; 83880; 84484; 85025; 85379; 85610; 93005; 99285

== ENCOUNTER 2019-03-30 04:08 | Emergency (ER) | payer OTHER ==
--- OUTSIDE RECORDS SUMMARY | 2019-03-30 04:11 | XMS REPORT ---
:1985 [facility] Address [address] [place] [address] Care Team Providers Name Role Phone Unavailable Unavailable Unavailable Problems This patient has no known problems. Allergies, Adverse Reactions, Alerts This patient has no known allergies or adverse reactions. Medications This patient has no known medications.
[2019-03-30] MEDS ORDERED: DEXAMETHASONE 4 MG TAB ONE (04:49)
[2019-03-30] MEDS ORDERED: BENZONATATE 100 MG CAP PO ONE (04:50)
[2019-03-30 05:07] LABS: Urine Specific Gravity >1.030 (1.005-1.030)
[2019-03-30 05:12] LABS: Urine Blood NEGATIVE (NEG); Urine Glucose NEGATIVE (NEG); Urine Protein 1+ (NEG); Urine Specific Gravity >1.030 (1.005-1.030); Urine pH 5.5 (5.0-7.0)
--- NOTE | 2019-03-30 05:12 | EDPHYS ---
Physician Documentation [facility] Name: Alex Walker Age: 33 yrs Sex: Female : 1985 Arrival Date: 03/30/2019 Time: 04:10 Bed 6 Private MD: VINNY HIDALGO ED Physician Anthony Cespedes HPI: 03/30 04:30 This 33 yrs old Female presents to ER via Unassigned with complaints of ps1 Cough, Congestion, Sore Throat, Flank Pain, blood in urine. 04:30 patient with multiple complaints. Onset was 1 day ago with sinus congestion, cough, and ps1 tonsil pain. She has been seen and evaluated for stones in the past and believes that she still has kidney stones as she has hematuria and flank pain on the right. No fever. 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 - Social history:: Smoking status: Patient uses tobacco products, smokes one-half pack cigarettes per day, Patient uses alcohol, but reports only rare drinking. - Ebola Screening: : Patient negative for fever greater than or equal to 101.5 degrees Fahrenheit, and additional compatible Ebola Virus Disease symptoms Patient denies exposure to infectious person Patient denies travel to an Ebola-affected area in the 21 days before illness onset. ROS: 04:30 Constitutional: Negative for fever, chills, and weight loss, Eyes: Negative for injury, ps1 pain, redness, and discharge, Cardiovascular: Negative for chest pain, palpitations, and edema, Abdomen/GI: Negative for abdominal pain, nausea, vomiting, diarrhea, and constipation, Back: Negative for injury and pain, Skin: Negative for injury, rash, and discoloration, Neuro: Negative for headache, weakness, numbness, tingling, and seizure. 04:30 ENT: Positive for sinus congestion, sore throat. 04:30 Respiratory: Positive for cough. 04:30 : Positive for flank pain, hematuria. Exam: 04:30 Constitutional: This is a well developed, well nourished patient who is awake, alert, ps1 and in no acute distress. Head/Face: Normocephalic, atraumatic. Eyes: Pupils equal round and reactive to light, extra-ocular motions intact. Lids and lashes normal. Conjunctiva and sclera are non-icteric and not injected. Chest/axilla: Normal chest wall appearance and motion. Nontender with no deformity. No lesions are appreciated. Cardiovascular: Regular rate and rhythm. No gallops, murmurs, or rubs. Normal PMI, no JVD. No pulse deficits. Respiratory: Lungs have equal breath sounds bilaterally, clear to auscultation and percussion. No rales, rhonchi or wheezes noted. No increased work of breathing, no retractions or nasal flaring. Abdomen/GI: Soft, non-tender, with normal bowel sounds. No distension or tympany. No guarding or rebound. No evidence of tenderness throughout. Skin: Warm, dry with normal turgor. Normal color with no rashes, no lesions, and no evidence of cellulitis. MS/ Extremity: Pulses equal, no cyanosis. Neurovascular intact. Full, normal range of motion. Neuro: Awake and alert, GCS 15, oriented to person, place, time, and situation. Cranial nerves II-XII grossly intact. Sensory grossly intact. Vital Signs: 04:31 BP 121 / 78; Pulse 88; Resp 18; Temp 98.0(O); Pulse Ox 99% on R/A; Weight 79.83 kg (R); fc Height 5 ft. 1 in. (154.94 cm) (R); Pain 8/10; 05:19 BP 117 / 71; Pulse 78; Resp 16; Temp 98.1; Pulse Ox 98% on R/A; Pain 6/10; aa1 04:31 Body Mass Index 33.25 (79.83 kg, 154.94 cm) fc MDM: 04:30 Data reviewed: vital signs, nurses notes. ps1 04:35 Patient medically screened. ps1 03/30 04:30 Order name: Strep; Complete Time: 05:07 ps1 03/30 04:42 Order name: Urine Dipstick--Ancillary (enter results); Complete Time: 05:13 cm6 03/30 04:30 Order name: Abdomen 1 View (KUB) XRAY ps1 03/30 04:56 Order name: Throat Culture EDIL 03/30 05:00 Order name: Urine --Ancillary (enter results); Complete Time: 05:08 cm6 03/30 04:30 Order name: Urine Dipstick-Ancillary (obtain specimen); Complete Time: 04:38 ps1 03/30 04:42 Order name: Urine Test (obtain specimen); Complete Time: 04:53 ps1 Administered Medications: 04:36 Drug: Decadron 10 mg Route: PO; tl2 04:37 Drug: Tessalon Perle 100 mg Route: PO; tl2 Disposition: 03/30/19 05:11 Discharged to Home. Impression: Pharyngitis, Constipation, Sinus congestion, Post nasal drip. - Condition is Stable. - Discharge Instructions: Constipation, Adult, Pharyngitis, Allergic Rhinitis. - Prescriptions for Colace 100 mg Oral Tablet - take 1 tablet by ORAL route every 12 hours; 14 tablet. Tessalon Perles 100 mg Oral Capsule - take 1 capsule by ORAL route every 8 hours As needed; 15 capsule. chlorpheniramine maleate 4 mg Oral Tablet - take 1 tablet by ORAL route every 6 hours As needed; 30 tablet. - Work release form, Medication Reconciliation Form, Thank You Letter, Antibiotic Education, Prescription Opioid Use form. - Follow up: VINNY HIDALGO; When: As needed; Reason: Further diagnostic work-up, Recheck today's complaints, Continuance of care, Re-evaluation by your physician. Follow up: Emergency Department; When: As needed; Reason: Worsening of condition. - Problem is new. - Symptoms have improved. Signatures: Dispatcher [employer] EDMS Chen Moreno RN RN aa1 Sherrie Avalos RN RN fc Knox, Taylor, RN RN tl2 Anthony Cespedes MD MD ps1 Corrections: (The following items were deleted from the chart) 05:21 05:11 03/30/2019 05:11 Discharged to Home. Impression: Pharyngitis; Constipation; Sinus aa1 congestion; Post nasal drip. Condition is Stable. Forms are Medication Reconciliation Form, Thank You Letter, Antibiotic Education, Prescription Opioid Use. Follow up: VINNY HIDALGO; When: As needed; Reason: Further diagnostic work-up, Recheck today's complaints, Continuance of care, Re-evaluation by your physician. Follow up: Emergency Department; When: As needed; Reason: Worsening of condition. Problem is new. Symptoms have improved. ps1
--- NOTE | 2019-03-30 05:12 | ER ---
Nurse's Notes [facility] Name: Alex Walker Age: 33 yrs Sex: Female : 1985 Arrival Date: 03/30/2019 Time: 04:10 Bed 6 Private MD: VINNY HIDALGO Diagnosis: Pharyngitis;Constipation;Sinus congestion;Post nasal drip Presentation: 03/30 04:28 Presenting complaint: Patient states: that she has been having cough and congestion x 2 fc days, sore throat today. Also has been having right kidney pain x 3-4 days along with dark urine. Thinks she already passed a kidney stone but has more. Transition of care: patient was not received from another setting of care. Onset of symptoms was March 27, 2019. Risk Assessment: Do you want to hurt yourself or someone else? Patient reports no desire to harm self or others. Initial Sepsis Screen: Does the patient meet any 2 criteria? No. Patient's initial sepsis screen is negative. Does the patient have a suspected source of infection? No. Patient's initial sepsis screen is negative. Care prior to arrival: None. 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 - Social history:: Smoking status: Patient uses tobacco products, smokes one-half pack cigarettes per day, Patient uses alcohol, but reports only rare drinking. - Ebola Screening: : Patient negative for fever greater than or equal to 101.5 degrees Fahrenheit, and additional compatible Ebola Virus Disease symptoms Patient denies exposure to infectious person Patient denies travel to an Ebola-affected area in the 21 days before illness onset. Screenin:32 Abuse screen: Denies threats or abuse. Nutritional screening: No deficits noted. fc Tuberculosis screening: No symptoms or risk factors identified. Fall Risk None identified. Assessment: 04:30 General: Appears in no apparent distress. comfortable, Behavior is calm, cooperative, aa1 appropriate for age. Pain: Complains of pain in back. Neuro: Level of Consciousness is awake, alert, obeys commands, Oriented to person, place, time, situation, Moves all extremities. Full function Gait is steady. Cardiovascular: Capillary refill < 3 seconds. Respiratory: Reports cough that is Airway is patent Respiratory effort is even, unlabored, Respiratory pattern is regular, symmetrical, Breath sounds are clear bilaterally. GI: No signs and/or symptoms were reported involving the gastrointestinal system. : No signs and/or symptoms were reported regarding the genitourinary system. EENT: Reports nasal congestion pain when swallowing. Derm: Skin is intact, is healthy with good turgor, Skin is pink, warm \T\ dry. Musculoskeletal: Circulation, motion, and sensation intact. Capillary refill < 3 seconds. 05:19 Reassessment: Patient appears in no apparent distress at this time. Patient is alert, aa1 oriented x 3, equal unlabored respirations, skin warm/dry/pink. Discussed d/c \T\ f/u instructions with pt; denies questions or concerns at this time. Vital Signs: 04:31 BP 121 / 78; Pulse 88; Resp 18; Temp 98.0(O); Pulse Ox 99% on R/A; Weight 79.83 kg (R); Height 5 ft. 1 in. (154.94 cm) (R); Pain 8/10; 05:19 BP 117 / 71; Pulse 78; Resp 16; Temp 98.1; Pulse Ox 98% on R/A; Pain 6/10; aa1 04:31 Body Mass Index 33.25 (79.83 kg, 154.94 cm) ED Course: 04:10 Patient arrived in ED. am2 04:11 VINNY HIDALGO is Private Physician. am2 04:22 Anthony Cespedes MD is Attending Physician. ps1 04:30 Triage completed. fc 04:31 Chen Moreno, ANIRUDH is Primary Nurse. aa1 04:31 Arm band placed on Patient placed in an exam room, on a stretcher. fc 04:32 Patient has correct armband on for positive identification. Bed in low position. Call fc light in reach. Pulse ox on. NIBP on. 04:59 Abdomen 1 View (KUB) XRAY In Process Unspecified. EDMS 05:10 VINNY HIDALGO is Referral Physician. ps1 05:19 No provider procedures requiring assistance completed. Patient did not have IV access aa1 during this emergency room visit. Administered Medications: 04:36 Drug: Decadron 10 mg Route: PO; tl2 04:37 Drug: Tessalon Perle 100 mg Route: PO; tl2 Outcome: 05:11 Discharge ordered by MD. ps1 05:19 Discharged to home ambulatory, with family. aa1 05:19 Condition: good 05:19 Discharge instructions given to patient, Instructed on discharge instructions, follow up and referral plans. medication usage, Demonstrated understanding of instructions, follow-up care, medications, Prescriptions given X 3. 05:21 Patient left the ED. aa1 Signatures: Dispatcher [employer] EDMS Chen Moreno RN RN aa1 Sherrie Avalos RN RN fc Knox, Taylor, RN RN tl2 Vanessa Ibarra amAnthony Colindres MD MD ps1
--- NOTE | 2019-03-30 10:00 | RAD REPORT ---
EXAM DESCRIPTION: RAD - Abdomen 1 View (KUB) - 03/30/2019 4:58 am CLINICAL HISTORY: Abdominal pain, flank pain, history of kidney stones COMPARISON: October 2018 FINDINGS: There is a large stool volume filling but not dilating the colon. No small bowel dilatatio n. No obstruction, free air or pneumatosis. No renal calculi confirmed. Density of bowel content limi ts renal parenchymal assessment. Tubal ligation clips are present. Patient has numerous phleboliths i n the pelvis. Pattern is not clearly different from the comparison on the left side. There is a possi ble new calcification in the pelvis on the right. No significant bony findings IMPRESSION: Numerous pelvic calcifications are present potentially masking a distal ureteral calculu s. Large stool volume filling but not dilating the colon.
== END 2019-03-30 05:21 | disposition home or self-care (01) ==
LOC: ER 04:08
DX: K59.00 Constipation, unspecified (principal); J02.9 Acute pharyngitis, unspecified; R09.81 Nasal congestion; R09.82 Postnasal drip; F17.210 Nicotine dependence, cigarettes, uncomplicated; Z88.5 Allergy status to narcotic agent; Z88.6 Allergy status to analgesic agent; Z91.048 Other nonmedicinal substance allergy status
CPT/HCPCS: 74018; 81003; 81025; 87070; 87081; 99284

== ENCOUNTER 2019-04-19 17:36 | Emergency (ER) | payer OTHER ==
--- OUTSIDE RECORDS SUMMARY | 2019-04-19 17:39 | XMS REPORT ---
:1985 [facility] [address] [place] [address] Care Team Providers Name Role Phone Unavailable Unavailable Unavailable Problems This patient has no known problems. Allergies, Adverse Reactions, Alerts This patient has no known allergies or adverse reactions. Medications This patient has no known medications.
--- NOTE | 2019-04-19 19:21 | EDPHYS ---
Physician Documentation [facility] Name: Alex Walker Age: 33 yrs Sex: Female : 1985 Arrival Date: 04/19/2019 Time: 17:38 Bed 23 Private MD: ED Physician Damon Riggs HPI: 04/19 17:58 This 33 yrs old Female presents to ER via Ambulatory with complaints of Hand jmm Pain. 17:58 The patient or guardian reports pain. Onset: The symptoms/episode began/occurred jmm gradually, 3 day(s) ago. Modifying factors: The symptoms are alleviated by nothing, the symptoms are aggravated by movement. Associated signs and symptoms: Pertinent negatives: fever. This is a 33 year old female with asthma, bipolar, that presents to the ED with complaints of pain, tingling to her right forearm radiating to her right 5th and 4th finger. 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 . 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 - Social history:: Smoking status: Patient uses tobacco products, smokes one-half pack cigarettes per day. - Ebola Screening: : Patient denies travel to an Ebola-affected area in the 21 days before illness onset. ROS: 17:58 Constitutional: Negative for fever, chills, and weight loss, Cardiovascular: Negative jmm for chest pain, palpitations, and edema, Respiratory: Negative for shortness of breath, cough, wheezing, and pleuritic chest pain. 17:58 MS/extremity: Positive for pain, paresthesias. 17:58 All other systems are negative. Exam: 17:58 Head/Face: atraumatic. Eyes: EOMI, no conjunctival erythema appreciated ENT: Moist jmm Mucus Membranes Neck: Trachea midline, Supple Chest/axilla: Normal chest wall appearance and motion. Cardiovascular: Regular rate and rhythm. No edema appreciated Respiratory: Normal respirations, no respiratory distress appreciated Abdomen/GI: Non distended, soft Back: Normal ROM 17:58 Constitutional: The patient appears in no acute distress, alert, awake. 17:58 Musculoskeletal/extremity: full radial pulse, appreciated, full production miner strength appreciated, < 2 sec dist cap refill, compartments are soft, nvi. 17:58 Skin: Appearance: Color: normal in color. 17:58 Neuro: Orientation: is normal, Mentation: is normal, Memory: is normal. 17:58 Psych: Behavior/mood is pleasant, cooperative. Vital Signs: 17:43 BP 128 / 74; Pulse 80; Resp 18; Temp 97.5; Pulse Ox 100% on R/A; Weight 81.19 kg (R); aj1 Height 5 ft. 1 in. (154.94 cm) (R); 19:28 BP 121 / 76; Pulse 74; Resp 17; Temp 97.6; Pulse Ox 99% ; rv 17:43 Body Mass Index 33.82 (81.19 kg, 154.94 cm) aj1 MDM: 17:58 Patient medically screened. antione 17:59 Data reviewed: vital signs, nurses notes. Counseling: I had a detailed discussion with antione the patient and/or guardian regarding: the historical points, exam findings, and any diagnostic results supporting the discharge/admit diagnosis, lab results, the need for outpatient follow up, to return to the emergency department if symptoms worsen or persist or if there are any questions or concerns that arise at home. 19:16 ED course: US negative for DVT. Region of pain concerning for ulnar neuropathy. Patient aurelio advised to follow up with orthopedics for reevaluation. Patient understood and agrees with the plan of care. . 04/19 18:04 Order name: US Extremity Venous Unilateral Ltd; Complete Time: 19:49 aurelio 04/19 17:58 Order name: Wrist Splint; Complete Time: 18:01 aurelio Administered Medications: No medications were administered Disposition: 04/20 06:58 Co-signature as Attending Physician, Damon Riggs MD. rn Disposition: 04/19/19 19:18 Discharged to Home. 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 - Condition is Stable. - Discharge Instructions: Peripheral Neuropathy. - Prescriptions for Medrol (Christos) 4 mg Oral Tablets, Dose Pack - take 1 tablet by ORAL route as directed - follow package instructions; 1 packet. - Medication Reconciliation Form, Thank You Letter, Antibiotic Education, Prescription Opioid Use form. - Follow up: Ronnie Sheridan MD; When: 2 - 3 days; Reason: Recheck today's complaints, Continuance of care, Re-evaluation by your physician. Signatures: Dispatcher [employer] EDKay Bennett RN RN aj1 Dov Torres PA PA jmm Nieto, Roman, MD MD rn Danilo Nascimento RN RN rv Corrections: (The following items were deleted from the chart) 04/19 19:29 19:18 04/19/2019 19:18 Discharged to Home. Impression: Injury of ulnar nerve at forearm rv level. Condition is Stable. Forms are Medication Reconciliation Form, Thank You Letter, Antibiotic Education, Prescription Opioid Use. Follow up: Ronnie Sheridan; When: 2 - 3 days; Reason: Recheck today's complaints, Continuance of care, Re-evaluation by your physician. antione
--- NOTE | 2019-04-19 19:21 | ER ---
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 My hand swells up, and today the pain wont got away. When I move my fingers it feels like the bones are rubbing together" Denies injury to the hand or arm. Transition of care: patient was not received from another setting of care. Onset of symptoms was April 16, 2019. Risk Assessment: Do you want to hurt yourself or someone else? Patient reports no desire to harm self or others. Initial Sepsis Screen: Does the patient meet any 2 criteria? No. Patient's initial sepsis screen is negative. Does the patient have a suspected source of infection? No. Patient's initial sepsis screen is negative. Care prior to arrival: None. 17:40 Method Of Arrival: Ambulatory aj1 17:40 Acuity: MARIA GUADALUPE 4 aj1 Triage Assessment: 17:43 General: Appears in no apparent distress. uncomfortable, Behavior is calm, cooperative, aj1 appropriate for age. Pain: Complains of pain in right hand Pain currently is 8 out of 10 on a pain scale. Neuro: Level of Consciousness is awake, alert, obeys commands, Oriented to person, place, time, situation. Cardiovascular: Patient's skin is warm and dry. Respiratory: Airway is patent Respiratory effort is even, unlabored, Respiratory pattern is regular, symmetrical. Musculoskeletal: Range of motion: limited in right wrist. 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 - Social history:: Smoking status: Patient uses tobacco products, smokes one-half pack cigarettes per day. - Ebola Screening: : Patient denies travel to an Ebola-affected area in the 21 days before illness onset. Screenin:01 Abuse screen: Denies threats or abuse. Denies injuries from another. Nutritional rv screening: No deficits noted. Tuberculosis screening: No symptoms or risk factors identified. Fall Risk None identified. Assessment: 17:59 General: Appears in no apparent distress. comfortable, Behavior is calm, cooperative. rv Pain: Complains of pain in right wrist and right hand. Neuro: Level of Consciousness is awake, alert, obeys commands, Oriented to person, place, time, situation. Cardiovascular: Patient's skin is warm and dry. Respiratory: Airway is patent. GI: No signs and/or symptoms were reported involving the gastrointestinal system. : No signs and/or symptoms were reported regarding the genitourinary system. EENT: No signs and/or symptoms were reported regarding the EENT system. Derm: Skin is intact. Musculoskeletal: Reports pain in right wrist and right hand. Vital Signs: 17:43 BP 128 / 74; Pulse 80; Resp 18; Temp 97.5; Pulse Ox 100% on R/A; Weight 81.19 kg (R); aj1 Height 5 ft. 1 in. (154.94 cm) (R); 19:28 BP 121 / 76; Pulse 74; Resp 17; Temp 97.6; Pulse Ox 99% ; rv 17:43 Body Mass Index 33.82 (81.19 kg, 154.94 cm) aj1 ED Course: 17:38 Patient arrived in ED. as 17:42 Triage completed. aj1 17:43 Arm band placed on Patient placed in an exam room. aj1 17:44 Dov Torres PA is PHCP. [facility] 17:44 Damon Riggs MD is Attending Physician. [facility] 17:46 Danilo Nascimento, ANIRUDH is Primary Nurse. rv 18:01 Patient has correct armband on for positive identification. Bed in low position. Call rv light in reach. Side rails up X 1. Pulse ox on. NIBP on. 18:05 Velcro wrist splint applied to right wrist. lt1 19:14 Ultrasound completed. Patient tolerated well. 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 sg3 19:17 Ronnie Sheridan MD is Referral Physician. jmm 19:18 US Extremity Venous Unilateral Ltd In Process Unspecified. EDMS 19:28 No provider procedures requiring assistance completed. Patient did not have IV access rv during this emergency room visit. Administered Medications: No medications were administered Outcome: 19:18 Discharge ordered by . jmm 19:28 Discharged to home ambulatory. rv 19:28 Condition: good 19:28 Discharge instructions given to patient, Instructed on discharge instructions, follow up and referral plans. splint care Demonstrated understanding of instructions, follow-up care, medications, Prescriptions given X 1. 19:29 Patient left the ED. rv Signatures: Dispatcher [employer] EDMS Kay Reilly, RN RN aj1 Dov Torres PA PA jmm Martinez, Amelia as Godinez, Sarah sg3 Danilo Nascimento, ANIRUDH RN Tavia Borrero lt1
--- NOTE | 2019-04-19 19:28 | RAD REPORT ---
EXAM DESCRIPTION: USExtremity Venous Uni Ltd04/19/2019 7:18 pm CLINICAL HISTORY: Right arm pain COMPARISON: None FINDINGS: The right internal jugular, right subclavian, right cephalic, right axillary, right brach ial, right basilic veins are generally compressible and demonstrate augmentation. Doppler demonstrate s good flow. IMPRESSION: No evidence of thrombus within the veins of the right upper extremity
== END 2019-04-19 19:29 | disposition home or self-care (01) ==
LOC: ER 17:36
DX: S54.01XA Injury of ulnar nerve at forearm level, right arm, initial encounter (principal); X58.XXXA Exposure to other specified factors, initial encounter; Y93.89 Activity, other specified; Y92.89 Other specified places as the place of occurrence of the external cause; Y99.8 Other external cause status; Z88.5 Allergy status to narcotic agent; Z88.6 Allergy status to analgesic agent; Z91.048 Other nonmedicinal substance allergy status; F17.210 Nicotine dependence, cigarettes, uncomplicated; F31.9 Bipolar disorder, unspecified; J45.909 Unspecified asthma, uncomplicated
CPT/HCPCS: 93971; 99284

== ENCOUNTER 2019-05-13 03:03 | Emergency (ER) | payer OTHER ==
--- OUTSIDE RECORDS SUMMARY | 2019-05-13 03:06 | XMS REPORT ---
:1985 [facility] Address [address] [place] [address] Care Team Providers Name Role Phone Unavailable Unavailable Unavailable Problems This patient has no known problems. Allergies, Adverse Reactions, Alerts This patient has no known allergies or adverse reactions. Medications This patient has no known medications.
[2019-05-13 03:41] LABS: Absolute Lymphocytes (CBC) 2.6 K/uL (0.7-4.9); Basophils % 0.7 % (0-1.3); Hematocrit 36.1 % (36.0-45.0); Lymphocytes % 31.9 % (15.3-44.8); MPV 7.1 fL (7.6-11.3); RBC Red Blood Cell Count 4.05 M/uL (3.86-4.86)
[2019-05-13] MEDS ORDERED: KETOROLAC 30 MG/ML INJ ONE (03:50)
[2019-05-13 03:57] LABS: ALT/SGPT 61 U/L (12-78); AST/SGOT 36 U/L (15-37); Albumin 4.1 g/dL (3.4-5.0); Alkaline Phosphatase 76 U/L (45-117); BUN Blood Urea Nitrogen 20 mg/dL (7-18); Bicarbonate 28 mmol/L (21-32); Bilirubin Direct < 0.1 mg/dL (0-0.2); Bilirubin Total 0.3 mg/dL (0.2-1.0); Glucose Level 94 mg/dL (74-106); Lipase 55 U/L (73-393); Potassium 3.5 mmol/L (3.5-5.1); Protein, Total 7.6 g/dL (6.4-8.2); Sodium Level 141 mmol/L (136-145)
[2019-05-13 03:59] LABS: Urine Blood NEGATIVE (NEG); Urine Glucose NEGATIVE (NEG); Urine Protein NEGATIVE (NEG); Urine Specific Gravity >1.030 (1.005-1.030); Urine pH 5.5 (5.0-7.0)
[2019-05-13] MEDS ORDERED: MORPHINE 4 MG/ML SYR ONE (04:30)
[2019-05-13] MEDS ORDERED: ONDANSETRON 4 MG/2 ML VIAL ONE (04:30)
--- NOTE | 2019-05-13 05:03 | ER ---
Nurse's Notes [facility] Name: Alex Walker Age: 33 yrs Sex: Female : 1985 Arrival Date: 05/13/2019 Time: 03:04 Bed 7 Private MD: Diagnosis: Dysmenorrhea, unspecified Presentation: 05/13 03:14 Presenting complaint: Patient states: lower abd cramps, back pain with heavy vaginal ak1 bleeding. pt stated she has been through a box of tampons today. Transition of care: patient was not received from another setting of care. Onset of symptoms is unknown. Risk Assessment: Do you want to hurt yourself or someone else? Patient reports no desire to harm self or others. Initial Sepsis Screen: Does the patient meet any 2 criteria? No. Patient's initial sepsis screen is negative. Does the patient have a suspected source of infection? No. Patient's initial sepsis screen is negative. Care prior to arrival: None. 03:14 Method Of Arrival: Ambulatory ak1 03:14 Acuity: MARIA GUADALUPE 3 ak1 Triage Assessment: 03:16 General: Appears in no apparent distress. uncomfortable, Behavior is calm, cooperative, ak1 crying. 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 - Social history:: Smoking status: Patient uses tobacco products, smokes one-half pack cigarettes per day. - Ebola Screening: : No symptoms or risks identified at this time. Screenin:16 Abuse screen: Denies threats or abuse. Denies injuries from another. Nutritional ak1 screening: No deficits noted. Tuberculosis screening: No symptoms or risk factors identified. Fall Risk None identified. Assessment: 03:18 General: Appears uncomfortable, Behavior is restless. Pain: Complains of pain in ea suprapubic area. Neuro: Level of Consciousness is awake, alert, obeys commands, Oriented to person, place, time, situation. Cardiovascular: Patient's skin is warm and dry. Respiratory: Airway is patent Respiratory effort is even, unlabored, Respiratory pattern is regular, symmetrical. GI: Abdomen is non-distended, Bowel sounds present X 4 quads. Abd is soft X 4 quads Abd is non tender X 4 quads. Derm: Skin is pink, warm \T\ dry. 04:38 Reassessment: Patient and/or family updated on plan of care and expected duration. Pain ea level reassessed. Patient is alert, oriented x 3, equal unlabored respirations, skin warm/dry/pink. Patient states symptoms have improved. 05:07 Reassessment: Patient and/or family updated on plan of care and expected duration. Pain ea level reassessed. Patient is alert, oriented x 3, equal unlabored respirations, skin warm/dry/pink. Discharge instruction given to patient, verbalized the understanding of instruction. Pt left ED ambulatory with significant other. Pt tolerating well Patient states feeling better. Patient states symptoms have improved. Vital Signs: 03:14 BP 144 / 87; Pulse 88; Resp 18; Temp 97.8; Pulse Ox 100% on R/A; Weight 81.19 kg (R); ak1 Height 5 ft. 1 in. (154.94 cm) (R); Pain 10/10; 04:38 BP 115 / 69; Pulse 59; Resp 18; Pulse Ox 98% on R/A; ea 03:14 Body Mass Index 33.82 (81.19 kg, 154.94 cm) ak1 ED Course: 03:04 Patient arrived in ED. ds1 03:14 Corbin Ann MD is Attending Physician. tw4 03:15 Triage completed. ak1 03:16 Arm band placed on Patient placed in an exam room, on a stretcher, on pulse oximetry, ak1 Patient notified of wait time. 03:16 Patient has correct armband on for positive identification. Bed in low position. Call ak1 light in reach. Side rails up X 1. Pulse ox on. NIBP on. 03:18 Marlen Sauceda, ANIRUDH is Primary Nurse. ea 03:30 Inserted saline lock: 20 gauge in left antecubital area, using aseptic technique. Blood ea collected. 05:03 No provider procedures requiring assistance completed. IV discontinued, intact, ea bleeding controlled, No redness/swelling at site. Pressure dressing applied. Administered Medications: 03:35 Drug: TORadol 30 mg Route: IVP; Site: left antecubital; ea 04:37 Follow up: Response: No adverse reaction ea 04:19 Drug: morphine 4 mg Route: IVP; Site: left antecubital; ea 04:37 Follow up: Response: No adverse reaction; Pain is decreased ea 04:19 Drug: Zofran 4 mg Route: IVP; Site: left antecubital; ea 04:37 Follow up: Response: No adverse reaction ea Outcome: 05:02 Discharge ordered by tw4 05:08 Discharged to home ambulatory, with significant other. ea 05:08 Condition: improved 05:08 Discharge instructions given to patient, Instructed on discharge instructions, follow up and referral plans. medication usage, Demonstrated understanding of instructions, follow-up care, medications, Prescriptions given X 1. 05:09 Patient left the ED. ea Signatures: Florencia Dunn ds1 Shonna Mills RN RN akMarlen Lara, Corbin Powell RN, ea, MD MD tw4
--- NOTE | 2019-05-13 05:03 | EDPHYS ---
Physician Documentation [facility] Name: Alex Walker Age: 33 yrs Sex: Female : 1985 Arrival Date: 05/13/2019 Time: 03:04 Bed 7 Private MD: ED Physician Corbin Ann HPI: 05/13 04:59 This 33 yrs old Female presents to ER via Ambulatory with complaints of tw4 Abdominal Pain, Vaginal Bleeding. 04:59 The patient presents with vaginal bleeding that is. Onset: The symptoms/episode tw4 began/occurred today. Modifying factors: The symptoms are alleviated by nothing, the symptoms are aggravated by nothing. Associated signs and symptoms: The patient has no apparent associated signs or symptoms. Severity of symptoms: At their worst the symptoms were moderate, in the emergency department the symptoms are unchanged. 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 - Social history:: Smoking status: Patient uses tobacco products, smokes one-half pack cigarettes per day. - Ebola Screening: : No symptoms or risks identified at this time. ROS: 04:59 Positive for vaginal bleeding. tw4 04:59 Constitutional: Negative for fever, chills, and weight loss, Eyes: Negative for injury, pain, redness, and discharge, ENT: Negative for injury, pain, and discharge, Respiratory: Negative for shortness of breath, cough, wheezing, and pleuritic chest pain, Abdomen/GI: Negative for abdominal pain, nausea, vomiting, diarrhea, and constipation, Back: Negative for injury and pain, MS/Extremity: Negative for injury and deformity. Exam: 04:59 Constitutional: This is a well developed, well nourished patient who is awake, alert, tw4 and in no acute distress. Head/Face: Normocephalic, atraumatic. Chest/axilla: Normal chest wall appearance and motion. Nontender with no deformity. No lesions are appreciated. Cardiovascular: Regular rate and rhythm with a normal S1 and S2. No gallops, murmurs, or rubs. Normal PMI, no JVD. No pulse deficits. Respiratory: Lungs have equal breath sounds bilaterally, clear to auscultation and percussion. No rales, rhonchi or wheezes noted. No increased work of breathing, no retractions or nasal flaring. Back: No spinal tenderness. No costovertebral tenderness. Full range of motion. MS/ Extremity: Pulses equal, no cyanosis. Neurovascular intact. Full, normal range of motion. Neuro: Awake and alert, GCS 15, oriented to person, place, time, and situation. Cranial nerves II-XII grossly intact. Motor strength 5/5 in all extremities. Sensory grossly intact. Cerebellar exam normal. Normal gait. 04:59 Abdomen/GI: Inspection: abdomen appears normal, Bowel sounds: normal, Palpation: mild abdominal tenderness, in the suprapubic area. Vital Signs: 03:14 BP 144 / 87; Pulse 88; Resp 18; Temp 97.8; Pulse Ox 100% on R/A; Weight 81.19 kg (R); ak1 Height 5 ft. 1 in. (154.94 cm) (R); Pain 10/10; 04:38 BP 115 / 69; Pulse 59; Resp 18; Pulse Ox 98% on R/A; ea 03:14 Body Mass Index 33.82 (81.19 kg, 154.94 cm) ak1 MDM: 03:14 Patient medically screened. tw4 04:59 Differential diagnosis: dysfunctional uterine bleeding, menorrhea, Data reviewed: vital tw4 signs, nurses notes. Data interpreted: Pulse oximetry: Interpretation: normal. Counseling: I had a detailed discussion with the patient and/or guardian regarding: the historical points, exam findings, and any diagnostic results supporting the discharge/admit diagnosis. Special discussion: I discussed with the patient/guardian in detail that at this point there is no indication for admission to the hospital. It is understood, however, that if the symptoms persist or worsen the patient needs to return immediately for re-evaluation. 05/13 03:15 Order name: Basic Metabolic Panel tw4 05/13 03:15 Order name: CBC with Diff tw4 05/13 03:15 Order name: Creatinine for Radiology tw4 05/13 03:15 Order name: Hepatic Function; Complete Time: 05:03 [facility] 05/13 05:03 Interpretation: Within normal limits. 05/13 03:15 Order name: Lipase 05/13 03:17 Order name: Basic Metabolic Panel; Complete Time: 05:03 [facility] 05/13 05:03 Interpretation: Normal except: CL 109; BUN 20; GFR 74. 05/13 03:15 Order name: IV Saline Lock; Complete Time: 03:37 [facility] 05/13 03:17 Order name: CBC with Automated Diff; Complete Time: 05:03 [facility] 05/13 05:03 Interpretation: Normal except: MPV 7.1. 05/13 03:17 Order name: Creatinine (Radiology Only); Complete Time: 05:03 [facility] 05/13 03:34 Order name: Urine Dipstick--Ancillary (enter results) [facility] 05/13 03:34 Order name: Urine --Ancillary (enter results); Complete Time: 05:03 [facility] 05/13 05:03 Interpretation: Normal except: USPGR >1.030. 05/13 03:15 Order name: Labs collected and sent; Complete Time: 03:37 [facility] 05/13 03:15 Order name: Urine Dipstick-Ancillary (obtain specimen); Complete Time: 03:37 [facility] 05/13 03:15 Order name: Urine Test (obtain specimen); Complete Time: 03:37 Administered Medications: 03:35 Drug: TORadol 30 mg Route: IVP; Site: left antecubital; ea 04:37 Follow up: Response: No adverse reaction ea 04:19 Drug: morphine 4 mg Route: IVP; Site: left antecubital; ea 04:37 Follow up: Response: No adverse reaction; Pain is decreased ea 04:19 Drug: Zofran 4 mg Route: IVP; Site: left antecubital; ea 04:37 Follow up: Response: No adverse reaction ea Disposition: 05/13/19 05:02 Discharged to Home. Impression: Dysmenorrhea, unspecified. - Condition is Stable. - Discharge Instructions: Dysmenorrhea. - Prescriptions for Tramadol 50 mg Oral Tablet - take 1 tablet by ORAL route every 8 hours as needed; 12 tablet. - Work release form, Medication Reconciliation Form, Thank You Letter, Antibiotic Education, Prescription Opioid Use form. - Follow up: Private Physician; When: Upon discharge from the Emergency Department; Reason: If symptoms return, Recheck today's complaints, Continuance of care. - Problem is new. - Symptoms have improved. Signatures: Dispatcher [employer] EDMS Shonna Mills RN RN ak1 Marlen Sauceda RN Corbin Powell ea, MD MD tw4 Corrections: (The following items were deleted from the chart) 05:09 05:02 05/13/2019 05:02 Discharged to Home. Impression: Dysmenorrhea, unspecified. ea Condition is Stable. Forms are Medication Reconciliation Form, Thank You Letter, Antibiotic Education, Prescription Opioid Use. Follow up: Private Physician; When: Upon discharge from the Emergency Department; Reason: If symptoms return, Recheck today's complaints, Continuance of care. Problem is new. Symptoms have improved. tw4
== END 2019-05-13 05:09 | disposition home or self-care (01) ==
LOC: ER 03:03
DX: N94.6 Dysmenorrhea, unspecified (principal); J45.909 Unspecified asthma, uncomplicated; F31.9 Bipolar disorder, unspecified; Z88.6 Allergy status to analgesic agent; Z88.5 Allergy status to narcotic agent; Z88.8 Allergy status to other drugs, medicaments and biological substances; F17.210 Nicotine dependence, cigarettes, uncomplicated
CPT/HCPCS: 36415; 80048; 80076; 81003; 81025; 83690; 85025; 96374; 96375; 99284; J2405

== ENCOUNTER 2019-06-23 23:45 | Emergency (ER) | payer OTHER ==
--- OUTSIDE RECORDS SUMMARY | 2019-06-23 23:47 | XMS REPORT ---
:1985 [facility] Address [address] [place] [address] Care Team Providers Name Role Phone Unavailable Unavailable Unavailable Problems This patient has no known problems. Allergies, Adverse Reactions, Alerts This patient has no known allergies or adverse reactions. Medications This patient has no known medications.
[2019-06-24] MEDS ORDERED: ONDANSETRON 4 MG/2 ML VIAL ONE (01:41)
[2019-06-24] MEDS ORDERED: MEPERIDINE HCL 25 MG/0.5 ML ONE (01:41)
[2019-06-24 01:42] LABS: Basophils % 0.4 % (0-1.3); Hematocrit 33.7 % (36.0-45.0); Lymphocytes % 11.4 % (15.3-44.8); MPV 7.4 fL (7.6-11.3); RBC Red Blood Cell Count 3.86 M/uL (3.86-4.86)
[2019-06-24] MEDS ORDERED: NA CHLORIDE 0.9% 1,000 ML ONE (01:42)
[2019-06-24 01:58] LABS: ALT/SGPT 22 U/L (12-78); AST/SGOT 15 U/L (15-37); Albumin 3.9 g/dL (3.4-5.0); Alkaline Phosphatase 52 U/L (45-117); BUN Blood Urea Nitrogen 12 mg/dL (7-18); Bicarbonate 26 mmol/L (21-32); Bilirubin Direct 0.1 mg/dL (0-0.2); Bilirubin Total 0.3 mg/dL (0.2-1.0); Glucose Level 87 mg/dL (74-106); Lipase 52 U/L (73-393); Potassium 3.8 mmol/L (3.5-5.1); Protein, Total 7.5 g/dL (6.4-8.2); Sodium Level 144 mmol/L (136-145)
[2019-06-24 02:15] LABS: Blood Morphology Comment NOT SEEN (NOT SEEN); Platelet Estimate ADEQ; Urine White Blood Cell Casts OK
--- NOTE | 2019-06-24 03:35 | EDPHYS ---
Physician Documentation [facility] Name: Alex Walker Age: 33 yrs Sex: Female : 1985 Arrival Date: 06/23/2019 Time: 23:47 Bed 28 Private MD: ED Physician Alphonso Mitchell HPI: 06/24 01:21 This 33 yrs old Female presents to ER via Ambulatory with complaints of pkl Rectal Bleeding. 01:21 Onset: The symptoms/episode began/occurred just prior to arrival. Associate signs and pkl symptoms: Pertinent positives: abdominal pain in the right lower quadrant and left lower quadrant. 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 - Social history:: Smoking status: Patient uses tobacco products, smokes one-half pack cigarettes per day, Patient/guardian denies using alcohol, street drugs. - Ebola Screening: : Patient negative for fever greater than or equal to 101.5 degrees Fahrenheit, and additional compatible Ebola Virus Disease symptoms Patient denies exposure to infectious person Patient denies travel to an Ebola-affected area in the 21 days before illness onset. ROS: 01:21 Eyes: Negative for injury, pain, redness, and discharge, ENT: Negative for injury, pkl pain, and discharge, Neck: Negative for injury, pain, and swelling, Cardiovascular: Negative for chest pain, palpitations, and edema, Respiratory: Negative for shortness of breath, cough, wheezing, and pleuritic chest pain. 01:21 Abdomen/GI: Positive for abdominal pain, of the right lower quadrant and left lower quadrant. 01:21 Back: Negative for pain at rest. 01:21 : Negative for urinary symptoms. 01:21 MS/extremity: Negative for acute changes. 01:21 Skin: Negative for rash. 01:21 Neuro: Negative for altered mental status. Exam: 01:21 Head/Face: Normocephalic, atraumatic. Eyes: Pupils equal round and reactive to light, pkl extra-ocular motions intact. Lids and lashes normal. Conjunctiva and sclera are non-icteric and not injected. Cornea within normal limits. Periorbital areas with no swelling, redness, or edema. ENT: Nares patent. No nasal discharge, no septal abnormalities noted. Tympanic membranes are normal and external auditory canals are clear. Oropharynx with no redness, swelling, or masses, exudates, or evidence of obstruction, uvula midline. Mucous membranes moist. Neck: Trachea midline, no thyromegaly or masses palpated, and no cervical lymphadenopathy. Supple, full range of motion without nuchal rigidity, or vertebral point tenderness. No Meningismus. Chest/axilla: Normal chest wall appearance and motion. Nontender with no deformity. No lesions are appreciated. Cardiovascular: Regular rate and rhythm with a normal S1 and S2. No gallops, murmurs, or rubs. Normal PMI, no JVD. No pulse deficits. Respiratory: Lungs have equal breath sounds bilaterally, clear to auscultation and percussion. No rales, rhonchi or wheezes noted. No increased work of breathing, no retractions or nasal flaring. 01:21 Abdomen/GI: Bowel sounds: normal, Palpation: soft, mild abdominal tenderness, in the right lower quadrant and left lower quadrant, Rectal exam: Stool: guaiac negative. 01:21 Back: Exam negative for acute changes. 01:21 : Exam negative for acute changes. 01:21 Musculoskeletal/extremity: Exam is negative for acute changes. 01:21 Skin: Exam negative for rash. 01:21 Neuro: Orientation: is normal, Mentation: is normal, Cranial nerves: grossly normal, Motor: is normal. Vital Signs: 00:00 BP 108 / 60; Pulse 66; Resp 18; Temp 98.3(O); Pulse Ox 97% on R/A; Weight 78.02 kg (R); fc Height 5 ft. 1 in. (154.94 cm) (R); Pain 7/10; 01:15 BP 98 / 46; Pulse 59; Resp 18; Pulse Ox 98% on R/A; wh 02:30 BP 116 / 62; Pulse 55; Resp 18; Pulse Ox 98% on R/A; wh 03:30 BP 103 / 62; Pulse 57; Resp 18; Pulse Ox 99% on R/A; wh 00:00 Body Mass Index 32.50 (78.02 kg, 154.94 cm) fc MDM: 00:27 Patient medically screened. pkl 03:30 Data reviewed: vital signs, nurses notes, lab test result(s), radiologic studies, CT pkl scan. ED course: Patient feeling better. Discussed lab. and CT Scan results with patient. Advised to follow up with [facility] in 2 to 3 days for further evaluations. Patient understood instructions. 06/24 01:16 Order name: Basic Metabolic Panel; Complete Time: 03:02 pkl 06/24 01:16 Order name: CBC with Diff; Complete Time: 03:02 pkl 06/24 01:16 Order name: Creatinine for Radiology; Complete Time: 03:02 pkl 06/24 01:16 Order name: Hepatic Function; Complete Time: 03:02 pkl 06/24 01:16 Order name: Lipase; Complete Time: 03:02 pkl 06/24 02:16 Order name: CBC Smear Scan; Complete Time: 03:02 EDMS 06/24 01:16 Order name: IV Saline Lock; Complete Time: 01:28 pkl 06/24 01:16 Order name: Labs collected and sent; Complete Time: 01:28 pkl 06/24 01:19 Order name: CT Abd/Pelvis - PO Contrast Only pkl 06/24 02:01 Order name: Abdomen EDMS Administered Medications: 01:46 Drug: Zofran 4 mg Route: IVP; Site: left antecubital; 03:40 Follow up: Response: No adverse reaction; Nausea is decreased 01:47 Drug: NS 0.9% 1000 ml Route: IV; Rate: 1000 ml; Site: left antecubital; 03:40 Follow up: Response: No adverse reaction; IV Status: Completed infusion 01:48 Drug: Demerol 25 mg {Note: RASS 0.} Route: IVP; Site: left antecubital; 03:40 Follow up: Response: No adverse reaction; Pain is decreased; RASS: Alert and Calm (0) Disposition: 06/24/19 03:34 Discharged to Home. Impression: Rectal bleeding. - Condition is Stable. - Medication Reconciliation Form, Thank You Letter, Antibiotic Education, Prescription Opioid Use form. - Follow up: Mclaughlin, Gino, MD; When: 2 - 3 days; Reason: Re-evaluation by your physician. - Problem is new. - Symptoms have improved. Signatures: Dispatcher [employer] Alphonso Ledbetter MD MD pkl Chretien, Felicia, RN RN Nicolas Olga Corrections: (The following items were deleted from the chart) 03:53 03:34 06/24/2019 03:34 Discharged to Home. Impression: Rectal bleeding. Condition is wh Stable. Forms are Medication Reconciliation Form, Thank You Letter, Antibiotic Education, Prescription Opioid Use. Follow up: Gino Mclaughlin; When: 2 - 3 days; Reason: Re-evaluation by your physician. Problem is new. Symptoms have improved. pkl
--- NOTE | 2019-06-24 03:35 | ER ---
Nurse's Notes [facility] Name: Alex Walker Age: 33 yrs Sex: Female : 1985 Arrival Date: 06/23/2019 Time: 23:47 Bed 28 Private MD: Diagnosis: Rectal bleeding Presentation: 06/24 00:00 Presenting complaint: Patient states: that at 1600 she had a stool and noted that she fc was having bright red blood . Since then has had a total of 4 stools with blood. Also having lower abd pain. 00:14 Transition of care: patient was not received from another setting of care. Onset of fc symptoms was June 23, 2019 at 16:00. Risk Assessment: Do you want to hurt yourself or someone else? Patient reports no desire to harm self or others. Initial Sepsis Screen: Does the patient meet any 2 criteria? No. Patient's initial sepsis screen is negative. Does the patient have a suspected source of infection? No. Patient's initial sepsis screen is negative. Care prior to arrival: None. 00:14 Method Of Arrival: Ambulatory fc 00:14 Acuity: MARIA GUADALUPE 3 fc Triage Assessment: 01:00 General: Behavior is calm, cooperative. 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 - Social history:: Smoking status: Patient uses tobacco products, smokes one-half pack cigarettes per day, Patient/guardian denies using alcohol, street drugs. - Ebola Screening: : Patient negative for fever greater than or equal to 101.5 degrees Fahrenheit, and additional compatible Ebola Virus Disease symptoms Patient denies exposure to infectious person Patient denies travel to an Ebola-affected area in the 21 days before illness onset. Screenin:17 Abuse screen: Denies threats or abuse. Nutritional screening: No deficits noted. fc Tuberculosis screening: No symptoms or risk factors identified. Fall Risk None identified. Assessment: 01:00 General: Appears in no apparent distress. Pain: Complains of pain in abdomen Pain does wh not radiate. Pain currently is 6 out of 10 on a pain scale. Quality of pain is described as aching. Neuro: Level of Consciousness is awake, alert, obeys commands. Cardiovascular: Heart tones S1 S2. Respiratory: Airway is patent Respiratory effort is even, unlabored, Respiratory pattern is regular, symmetrical, Breath sounds are clear bilaterally. GI: Abdomen is flat, non-distended, Bowel sounds present X 4 quads. Abd is soft and non tender X 4 quads. Reports rectal bleeding. : No signs and/or symptoms were reported regarding the genitourinary system. EENT: No signs and/or symptoms were reported regarding the EENT system. Derm: Skin is intact, is healthy with good turgor, Skin is pink, warm \T\ dry. normal. Musculoskeletal: Range of motion: intact in all extremities. 02:10 Reassessment: Patient appears in no apparent distress at this time. No changes from previously documented assessment. Patient and/or family updated on plan of care and expected duration. Pain level reassessed. Patient is alert, oriented x 3, equal unlabored respirations, skin warm/dry/pink. 03:30 Reassessment: Patient appears in no apparent distress at this time. No changes from previously documented assessment. Patient and/or family updated on plan of care and expected duration. Pain level reassessed. Patient is alert, oriented x 3, equal unlabored respirations, skin warm/dry/pink. Patient denies pain at this time. Patient states feeling better. Patient states symptoms have improved. Vital Signs: 00:00 BP 108 / 60; Pulse 66; Resp 18; Temp 98.3(O); Pulse Ox 97% on R/A; Weight 78.02 kg (R); fc Height 5 ft. 1 in. (154.94 cm) (R); Pain 7/10; 01:15 BP 98 / 46; Pulse 59; Resp 18; Pulse Ox 98% on R/A; wh 02:30 BP 116 / 62; Pulse 55; Resp 18; Pulse Ox 98% on R/A; wh 03:30 BP 103 / 62; Pulse 57; Resp 18; Pulse Ox 99% on R/A; wh 00:00 Body Mass Index 32.50 (78.02 kg, 154.94 cm) ED Course: 06/23 23:47 Patient arrived in ED. cl3 06/24 00:00 Arm band placed on Patient placed in an exam room, on a stretcher. 00:00 Patient has correct armband on for positive identification. Placed in gown. Bed in low fc position. Call light in reach. Side rails up X 1. Pulse ox on. NIBP on. 00:00 No provider procedures requiring assistance completed. 00:12 Olga Valenzuela is Primary Nurse. 00:16 Triage completed. 00:27 Alphonso Mitchell MD is Attending Physician. pkl 01:00 Inserted saline lock: 22 gauge in left antecubital area, using aseptic technique. jv1 01:30 LUCIA was done by Dr Mitchell with Negative Guiac Test. 03:02 Abdomen In Process Unspecified. EDMS 03:33 Gino Mclaughlin MD is Referral Physician. pkl 03:51 IV discontinued, intact, bleeding controlled, No redness/swelling at site. Administered Medications: 01:46 Drug: Zofran 4 mg Route: IVP; Site: left antecubital; 03:40 Follow up: Response: No adverse reaction; Nausea is decreased 01:47 Drug: NS 0.9% 1000 ml Route: IV; Rate: 1000 ml; Site: left antecubital; 03:40 Follow up: Response: No adverse reaction; IV Status: Completed infusion 01:48 Drug: Demerol 25 mg {Note: RASS 0.} Route: IVP; Site: left antecubital; 03:40 Follow up: Response: No adverse reaction; Pain is decreased; RASS: Alert and Calm (0) Outcome: 03:34 Discharge ordered by . pkl 03:50 Discharged to home ambulatory. 03:50 Condition: good 03:50 Discharge instructions given to patient, Instructed on discharge instructions, follow up and referral plans. POC rectal bleeding Demonstrated understanding of instructions, follow-up care, POC 03:53 Patient left the ED. Signatures: Dispatcher [employer] EDMS Alphonso Mitcehll MD MD pkSherrie Hart RN RN Olga Valenzuela Mila Nascimento RN RN jv1 Bessy Douglas cl3 Corrections: (The following items were deleted from the chart) 00:16 00:14 Presenting complaint: Patient states: that at 1600 she had a stool and noted that fc she was having bright red blood . Since then has had a total of 4 stools with blood. Also having lower abd pain. fc 01:47 01:46 Demerol 25 mg IVP in left antecubital [facility] 03:35 03:33 General: Appears in no apparent distress. [facility] 03:33 Pain: Complains of pain in abdomen Pain does not radiate. Pain currently is 6 out wh of 10 on a pain scale. Quality of pain is described as aching, 03:33 Neuro: Level of Consciousness is awake, alert, obeys commands, [facility] 03:33 Cardiovascular: Heart tones S1 S2 [facility] 03:33 Respiratory: Airway is patent Respiratory effort is even, unlabored, Respiratory wh pattern is regular, symmetrical, Breath sounds are clear bilaterally. 03:33 GI: Abdomen is flat, non-distended, Bowel sounds present X 4 quads. Abd is soft wh and non tender X 4 quads. Reports rectal bleeding, 03:33 : No signs and/or symptoms were reported regarding the genitourinary system. [facility] 03:33 EENT: No signs and/or symptoms were reported regarding the EENT system. [facility] 03:33 Derm: Skin is intact, is healthy with good turgor, Skin is pink, warm \T\ dry. wh normal, 03:33 Musculoskeletal: Range of motion: intact in all extremities, [facility] 03:33 General: Appears in no apparent distress. [facility]
--- NOTE | 2019-06-24 10:01 | RAD REPORT ---
EXAM DESCRIPTION: CT - Abdomen Pelvis Wo Contrast - 06/24/2019 6:55 am CLINICAL HISTORY: ABD PAIN COMPARISON: None. TECHNIQUE: CT ABDOMEN PELVIS WITHOUT IV CONTRAST on 06/24/2019 1:19 AM CDT This exam was performed according to our departmental dose-optimization program, which includes autom ated exposure control, adjustment of the mA and/or kV according to patient size and/or use of iterati ve reconstruction technique. FINDINGS: Lower lungs are clear. Abdomen: The liver is normal in appearance. There is no biliary dilatation. Gallbladder is normal in appearance. There are scattered calcified granulomas in the spleen. Pancreas is normal. Adrenal gland s and right kidney are unremarkable. There are at least two punctate mid pole left renal calculi. The re is no convincing hydronephrosis. Abdominal aorta is normal in course and caliber without aneurysm. There is no free air. There is no r etroperitoneal adenopathy. Pelvis: There is no bowel obstruction. Urinary bladder is unremarkable. There is no free fluid. Uteru s is normal in size. Appendix is not well seen. Skeleton: There are no acute osseous findings. No suspicious bony lesions. IMPRESSION: Left minimal nephrolithiasis without overt findings of hydronephrosis. Electronically signed by: Matias Souza MD 06/24/2019 3:08 AM CDT Due to temporary technical issues with the PACS/Fluency reporting system, reports are being signed by the in house radiologist as a courtesy to ensure prompt reporting. The interpreting radiologist is f ully responsible for the content of the report.
== END 2019-06-24 03:53 | disposition home or self-care (01) ==
LOC: ER 23:45
DX: K62.5 Hemorrhage of anus and rectum (principal); F17.210 Nicotine dependence, cigarettes, uncomplicated; Z88.5 Allergy status to narcotic agent; Z88.6 Allergy status to analgesic agent; Z91.048 Other nonmedicinal substance allergy status
CPT/HCPCS: 96361; 85025; 80048; 36415; 80076; 83690; 74176; 96375; 96374; 99284; J2175; J7030; J2405

== ENCOUNTER 2019-07-01 21:34 | Emergency (ER) | payer OTHER ==
--- OUTSIDE RECORDS SUMMARY | 2019-07-01 21:36 | XMS REPORT ---
:1985 [facility] [address] [place] [address] Care Team Providers Name Role Phone Unavailable Unavailable Unavailable Problems This patient has no known problems. Allergies, Adverse Reactions, Alerts This patient has no known allergies or adverse reactions. Medications This patient has no known medications.
--- NOTE | 2019-07-01 22:26 | ER ---
Nurse's Notes [facility] Name: Alex Walker Age: 33 yrs Sex: Female : 1985 Arrival Date: 07/01/2019 Time: 21:37 Bed 12 Private MD: Diagnosis: dental pain Presentation: 07/01 22:12 Presenting complaint: Patient states: she is having left lower jaw pain x 2 days from bb infected tooth having difficulty sleeping and eating can't get into her dentist until next week. Transition of care: patient was not received from another setting of care. Onset of symptoms was June 29, 2019. Risk Assessment: Do you want to hurt yourself or someone else? Patient reports no desire to harm self or others. Initial Sepsis Screen: Does the patient meet any 2 criteria? No. Patient's initial sepsis screen is negative. Does the patient have a suspected source of infection? No. Patient's initial sepsis screen is negative. Care prior to arrival: None. 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 - Social history:: Smoking status: Patient uses tobacco products, smokes one-half pack cigarettes per day. - Ebola Screening: : No symptoms or risks identified at this time. Screenin:19 Abuse screen: Denies threats or abuse. Nutritional screening: No deficits noted. bb Tuberculosis screening: No symptoms or risk factors identified. Fall Risk None identified. Assessment: 22:19 General: Appears in no apparent distress. uncomfortable, Behavior is calm, cooperative. bb Pain: Complains of pain in left jaw Pain currently is 7 out of 10 on a pain scale. Pain began 2-3 days ago. Neuro: Level of Consciousness is awake, alert, obeys commands, Oriented to person, place, time, situation. Cardiovascular: No deficits noted. Respiratory: Airway is patent Respiratory effort is even, unlabored, Respiratory pattern is regular. GI: No signs and/or symptoms were reported involving the gastrointestinal system. Derm: Skin is pink, warm \T\ dry. Musculoskeletal: Circulation, motion, and sensation intact. 22:54 Reassessment: Patient and/or family updated on plan of care and expected duration. Pain bb level reassessed. Patient is alert, oriented x 3, equal unlabored respirations, skin warm/dry/pink. pt verbalized understanding of and agrees to plan of care discharge instructions given pt ambulated with steady gait to exit accompanied by family Patient states feeling better. Vital Signs: 22:14 BP 133 / 83; Pulse 65; Resp 16 S; Temp 98.1(O); Pulse Ox 99% on R/A; Weight 82.55 kg bb (R); Height 5 ft. 1 in. (154.94 cm) (R); Pain 8/10; 22:14 Body Mass Index 34.39 (82.55 kg, 154.94 cm) bb ED Course: 21:37 Patient arrived in ED. cf2 22:13 Triage completed. bb 22:14 Arm band placed on Patient placed in an exam room. bb 22:19 Patient has correct armband on for positive identification. Call light in reach. bb 22:20 Benja Guzman NP is [facility]. pm1 22:20 Corbin Ann MD is Attending Physician. pm1 22:54 No provider procedures requiring assistance completed. Patient did not have IV access bb during this emergency room visit. Administered Medications: 22:39 Drug: traMADol 50 mg {Note: RASS 0.} Route: PO; bb 22:53 Follow up: Response: No adverse reaction; Pain is decreased; RASS: Alert and Calm (0) bb Outcome: 22:26 Discharge ordered by MD. pm1 22:54 Discharged to home ambulatory, with family. bb 22:54 Condition: stable 22:54 Discharge instructions given to patient, Instructed on discharge instructions, follow up and referral plans. no driving heavy equipment, medication usage, Demonstrated understanding of instructions, follow-up care, medications, Prescriptions given X 2. 22:55 Patient left the ED. bb Signatures: Kathy Ritter RN RN bb Benja Guzman NP NURSE'S COMPANION pm1 Roosevelt Greer cf2
--- NOTE | 2019-07-01 22:27 | EDPHYS ---
Physician Documentation [facility] Name: Alex Walker Age: 33 yrs Sex: Female : 1985 Arrival Date: 07/01/2019 Time: 21:37 Bed 12 Private MD: ED Physician Corbin Ann HPI: 07/01 23:04 This 33 yrs old Female presents to ER via Ambulatory with complaints of pain pm1 in jaw. 23:04 The patient presents with pain. The problem is located in the lower left third molar. pm1 Onset: The symptoms/episode began/occurred 2 day(s) ago. Duration: The symptoms are continuous. Modifying factors: The symptoms are alleviated by nothing. Associated signs and symptoms: Pertinent negatives: fever, inability to eat, nausea, vomiting. Severity of symptoms: in the emergency department the symptoms are actually worse. The patient has not experienced similar symptoms in the past. The patient has not recently seen a physician. Has appointment with dentist next week. 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 - Social history:: Smoking status: Patient uses tobacco products, smokes one-half pack cigarettes per day. - Ebola Screening: : No symptoms or risks identified at this time. ROS: 23:04 Constitutional: Negative for fever, chills, and weight loss, Eyes: Negative for injury, pm1 pain, redness, and discharge. 23:04 Neck: Negative for injury, pain, and swelling, Cardiovascular: Negative for chest pain, palpitations, and edema, Respiratory: Negative for shortness of breath, cough, wheezing, and pleuritic chest pain, Abdomen/GI: Negative for abdominal pain, nausea, vomiting, diarrhea, and constipation, Back: Negative for injury and pain, MS/Extremity: Negative for injury and deformity, Skin: Negative for injury, rash, and discoloration, Neuro: Negative for headache, weakness, numbness, tingling, and seizure. 23:04 ENT: Positive for dental pain, Negative for drainage from ear(s), ear pain, sore throat, difficulty swallowing, difficulty handling secretions, hoarseness. Exam: 23:04 Constitutional: This is a well developed, well nourished patient who is awake, alert, pm1 and in no acute distress. Head/Face: Normocephalic, atraumatic. Eyes: Pupils equal round and reactive to light, extra-ocular motions intact. Lids and lashes normal. Conjunctiva and sclera are non-icteric and not injected. Cornea within normal limits. Periorbital areas with no swelling, redness, or edema. 23:04 Neck: Trachea midline, no thyromegaly or masses palpated, and no cervical lymphadenopathy. Supple, full range of motion without nuchal rigidity, or vertebral point tenderness. No Meningismus. Chest/axilla: Normal chest wall appearance and motion. Nontender with no deformity. No lesions are appreciated. Cardiovascular: Regular rate and rhythm with a normal S1 and S2. No gallops, murmurs, or rubs. Normal PMI, no JVD. No pulse deficits. Respiratory: Lungs have equal breath sounds bilaterally, clear to auscultation and percussion. No rales, rhonchi or wheezes noted. No increased work of breathing, no retractions or nasal flaring. Abdomen/GI: Soft, non-tender, with normal bowel sounds. No distension or tympany. No guarding or rebound. No evidence of tenderness throughout. Back: No spinal tenderness. No costovertebral tenderness. Full range of motion. Skin: Warm, dry with normal turgor. Normal color with no rashes, no lesions, and no evidence of cellulitis. MS/ Extremity: Pulses equal, no cyanosis. Neurovascular intact. Full, normal range of motion. 23:04 ENT: External ear(s): are unremarkable, Ear canal(s): are normal, TM's: are normal, Nose: is normal, Mouth: no acute changes, Dental exam: pain, that is moderate, specifically in the lower left third molar (#17). 23:04 Neuro: Orientation: is normal, Motor: is normal, moves all fours. Vital Signs: 22:14 BP 133 / 83; Pulse 65; Resp 16 S; Temp 98.1(O); Pulse Ox 99% on R/A; Weight 82.55 kg bb (R); Height 5 ft. 1 in. (154.94 cm) (R); Pain 8/10; 22:14 Body Mass Index 34.39 (82.55 kg, 154.94 cm) bb MDM: 22:20 Patient medically screened. pm1 22:25 Data reviewed: vital signs. Data interpreted: Pulse oximetry: on room air is 99 %. pm1 Interpretation: normal. Counseling: I had a detailed discussion with the patient and/or guardian regarding: the historical points, exam findings, and any diagnostic results supporting the discharge/admit diagnosis, the need for outpatient follow up, for definitive care, a dentist, to return to the emergency department if symptoms worsen or persist or if there are any questions or concerns that arise at home. Administered Medications: 22:39 Drug: traMADol 50 mg {Note: RASS 0.} Route: PO; bb 22:53 Follow up: Response: No adverse reaction; Pain is decreased; RASS: Alert and Calm (0) bb Disposition: 07/02 05:46 Co-signature as Attending Physician, Corbin Ann MD I agree with the assessment and tw4 plan of care. Disposition: 07/01/19 22:26 Discharged to Home. Impression: dental pain. - Condition is Stable. - Discharge Instructions: Dental Pain. - Prescriptions for Tramadol 50 mg Oral Tablet - take 1 tablet by ORAL route every 8 hours As needed as needed; 12 tablet. Amoxicillin 500 mg Oral Capsule - take 1 capsule by ORAL route every 8 hours for 10 days; 30 tablet. - Medication Reconciliation Form, Thank You Letter, Antibiotic Education, Prescription Opioid Use form. - Follow up: Emergency Department; When: As needed; Reason: Worsening of condition. Follow up: Private Physician; When: 2 - 3 days; Reason: Recheck today's complaints, Continuance of care, Re-evaluation by your physician. - Problem is new. - Symptoms have improved. Signatures: Kathy Ritter RN RN bb Benja Guzman, ADULT PROTECTIVE CASEWORKER ADULT PROTECTIVE CASEWORKER pm1 Corbin Ann MD MD tw4 Corrections: (The following items were deleted from the chart) 07/01 22:55 22:26 07/01/2019 22:26 Discharged to Home. Impression: dental pain. Condition is bb Stable. Forms are Medication Reconciliation Form, Thank You Letter, Antibiotic Education, Prescription Opioid Use. Follow up: Emergency Department; When: As needed; Reason: Worsening of condition. Follow up: Private Physician; When: 2 - 3 days; Reason: Recheck today's complaints, Continuance of care, Re-evaluation by your physician. Problem is new. Symptoms have improved. pm1
[2019-07-01] MEDS ORDERED: TRAMADOL HCL 50 MG TAB ONE (22:39)
[2019-07-01 23:33] VITALS: BP 133/83; TEMP 98.1; O2SAT 99
== END 2019-07-01 22:55 | disposition home or self-care (01) ==
LOC: ER 21:34
DX: K08.89 Other specified disorders of teeth and supporting structures (principal); F17.210 Nicotine dependence, cigarettes, uncomplicated; Z88.6 Allergy status to analgesic agent; Z91.09 Other allergy status, other than to drugs and biological substances
CPT/HCPCS: 99283

== ENCOUNTER 2019-08-17 16:46 | Emergency (ER) | payer OTHER ==
[2019-08-17] MEDS ORDERED: HYDROCODONE/APAP 10/325 TAB ONE (17:24)
[2019-08-17] MEDS ORDERED: NITROFURAN MACRO 100 MG CAP PO ONE (17:25)
[2019-08-17 17:45] LABS: Urine Blood TRACE (NEG); Urine Glucose NEGATIVE (NEG); Urine Protein NEGATIVE (NEG); Urine pH 7.5 (5.0-7.0)
[2019-08-17 18:06] LABS: Urine Bacteria >50 /HPF (<20)
[2019-08-17 18:07] LABS: Urine Culture Reflex Order NOT NEEDED
--- NOTE | 2019-08-17 18:08 | RAD REPORT ---
EXAM DESCRIPTION: CT - Stone Protocol - 08/17/2019 5:50 pm CLINICAL HISTORY: Flank pain. FLANK PAIN COMPARISON: Abdomen Pelvis Wo Contrast dated 06/24/2019 TECHNIQUE: Axial images were obtained without oral or IV contrast. Lack of contrast limits solid org an and vascular assessment. The [id number] spans the entirety of the system partially obscuring uppermost abdomen and lung bases. Coronal reformatted images were obtained and reviewed. All CT scans are performed using dose optimization technique as appropriate and may include automated exposure control or mA/KV adjustment according to patient size. FINDINGS: The lower lung lemos are clear. Imaged portions of the liver and spleen show no suspicious findings on non-contrast imaging. The panc reas and adrenal glands are normal. No pathologic lymphadenopathy in the abdomen or pelvis. No urinary tract stones or obstructive uropathy. No bowel obstruction, free air, free fluid or abscess. Normal appendix noted. No significant bony abnormality. IMPRESSION: No urinary tract stones or obstructive uropathy.
--- NOTE | 2019-08-17 18:19 | ER ---
Nurse's Notes [facility] Name: Alex Walker Age: 34 yrs Sex: Female : 1985 Arrival Date: 08/17/2019 Time: 16:49 Bed 18 Private MD: Diagnosis: Urinary tract infection, site not specified;Low back pain Presentation: 08/17 16:50 Presenting complaint: Patient states: "I'm having horrible pains in my mid and lower aj1 back since yesterday afternoon" Denies injury to back. Reports having muscle spasms yesterday, but the pain got back at 2300 and has not let up. Transition of care: patient was not received from another setting of care. Onset of symptoms was August 16, 2019 at 23:00. Risk Assessment: Do you want to hurt yourself or someone else? Patient reports no desire to harm self or others. Initial Sepsis Screen: Does the patient meet any 2 criteria? No. Patient's initial sepsis screen is negative. Does the patient have a suspected source of infection? No. Patient's initial sepsis screen is negative. Care prior to arrival: None. 16:50 Method Of Arrival: Ambulatory aj1 16:50 Acuity: MARIA GUADALUPE 4 aj1 Triage Assessment: 16:52 General: Appears in no apparent distress. uncomfortable, Behavior is calm, cooperative, aj1 appropriate for age. Pain: Complains of pain in low back area and mid back area Pain currently is 9 out of 10 on a pain scale. Neuro: Level of Consciousness is awake, alert, obeys commands. Cardiovascular: Patient's skin is warm and dry. Respiratory: Airway is patent Respiratory effort is even, unlabored, Respiratory pattern is regular, symmetrical. Musculoskeletal: Range of motion: intact in all extremities. 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 - Social history:: Smoking status: Patient uses tobacco products, smokes one-half pack cigarettes per day. - Ebola Screening: : Patient denies travel to an Ebola-affected area in the 21 days before illness onset. Screenin:00 Abuse screen: Denies threats or abuse. Denies injuries from another. Nutritional bp screening: No deficits noted. Tuberculosis screening: No symptoms or risk factors identified. Fall Risk None identified. Assessment: 17:00 General: SEE TRIAGE NOTE. bp 17:43 Reassessment: PT TO CT. Neuro: Level of Consciousness is awake, alert, obeys commands, bp Oriented to person, place, time, situation, Appropriate for age. 18:47 Reassessment: Patient appears in no apparent distress at this time. Patient and/or em family updated on plan of care and expected duration. Pain level reassessed. Patient is alert, oriented x 3, equal unlabored respirations, skin warm/dry/pink. rates pain 6/10. Vital Signs: 16:52 BP 126 / 72; Pulse 109; Resp 20; Temp 98.4; Pulse Ox 99% on R/A; Weight 79.83 kg (R); aj1 Height 5 ft. 1 in. (154.94 cm) (R); Pain 9/10; 18:47 BP 105 / 64; Pulse 70; Resp 18; Pulse Ox 99% on R/A; Pain 6/10; em 16:52 Body Mass Index 33.25 (79.83 kg, 154.94 cm) aj1 ED Course: 16:49 Patient arrived in ED. mr 16:51 Triage completed. aj1 16:58 Sylvia Lemus FNP-C is [facility]. kb 16:58 Damon Riggs MD is Attending Physician. kb 17:00 Hugo Hebert, ANIRUDH is Primary Nurse. bp 17:00 Patient has correct armband on for positive identification. Bed in low position. Call bp light in reach. Side rails up X2. Adult w/ patient. 17:50 CT Stone Protocol In Process Unspecified. EDMS 17:50 CT completed. Patient tolerated procedure well. Patient moved back from CT. mw3 18:46 No provider procedures requiring assistance completed. Patient did not have IV access em during this emergency room visit. Administered Medications: 17:25 Drug: Bricelyn 10 mg-325 mg 1 tabs Route: PO; bp 17:42 Follow up: Response: Pain is decreased bp 17:25 Drug: Macrobid 100 mg Route: PO; bp 17:41 Follow up: Response: No adverse reaction bp Outcome: 18:18 Discharge ordered by . anabelle 18:46 Discharged to home ambulatory. em 18:46 Condition: good 18:46 Discharge instructions given to patient, Instructed on discharge instructions, follow up and referral plans. medication usage, Demonstrated understanding of instructions, follow-up care, medications, Prescriptions given X 3. 18:48 Patient left the ED. em Signatures: Dispatcher [employer] EDSylvia Armstrong, CARPENTERS-C CARPENTERS-CkKay Sykes, RN RN aj1 Karla Aldridge Edgar, CYLINDER DYER CYLINDER DYER Hugo Ferreira, RN RN Angela Polanco mw3
--- NOTE | 2019-08-17 18:19 | EDPHYS ---
Physician Documentation [facility] Name: Alex Walker Age: 34 yrs Sex: Female : 1985 Arrival Date: 08/17/2019 Time: 16:49 Bed 18 Private MD: ED Physician Damon Riggs HPI: 08/17 17:22 This 34 yrs old Female presents to ER via Ambulatory with complaints of Back kb Pain. 17:22 The patient presents with pain that is acute, with no known mechanism of injury. The kb symptoms are located in the lumbar area and right flank. Onset: The symptoms/episode began/occurred yesterday. The pain does not radiate. Associated signs and symptoms: Pertinent positives: muscle spasms, Pertinent negatives: abdominal pain, chest pain, constipation, dysuria, fever, headache, hematuria, incontinence, nausea, numbness, tingling, urinary retention, vomiting, weakness. The problem was sustained from unknown cause. Modifying factors: The patient symptoms are alleviated by nothing, the patient symptoms are aggravated by any movement. Severity of symptoms: At their worst the symptoms were moderate, severe, in the emergency department the symptoms are unchanged. The patient has not experienced similar symptoms in the past. The patient has not recently seen a physician. NURSE RN BSN: 16:52 LMP N/A - Irregular menses aj1 Historical: - Allergies: 16:52 Naproxen; aj1 16:52 Toradol; aj1 - Home Meds: 16:52 None [Active]; aj1 - PMHx: 16:52 Asthma; Bipolar disorder; Endometriosis; Irregular heart rate; PCOS; aj1 - Immunization history:: Flu vaccine is up to date. - Social history:: Smoking status: Patient uses tobacco products, smokes one-half pack cigarettes per day. - Ebola Screening: : Patient denies travel to an Ebola-affected area in the 21 days before illness onset. ROS: 17:21 Constitutional: Negative for fever, chills, and weight loss, Cardiovascular: Negative kb for chest pain, palpitations, and edema, Respiratory: Negative for shortness of breath, cough, wheezing, and pleuritic chest pain, Abdomen/GI: Negative for abdominal pain, nausea, vomiting, diarrhea, and constipation, : Negative for injury, bleeding, discharge, and swelling, MS/Extremity: Negative for injury and deformity, Skin: Negative for injury, rash, and discoloration, Neuro: Negative for headache, weakness, numbness, tingling, and seizure. 17:21 Back: Positive for pain at rest, pain with movement, flank pain, on the right, of the lumbar area and right flank. Exam: 17:21 Constitutional: This is a well developed, well nourished patient who is awake, alert, kb and in no acute distress. Head/Face: Normocephalic, atraumatic. ENT: Nares patent. No nasal discharge, no septal abnormalities noted. Tympanic membranes are normal and external auditory canals are clear. Oropharynx with no redness, swelling, or masses, exudates, or evidence of obstruction, uvula midline. Mucous membranes moist. Neck: Trachea midline, no thyromegaly or masses palpated, and no cervical lymphadenopathy. Supple, full range of motion without nuchal rigidity, or vertebral point tenderness. No Meningismus. Chest/axilla: Normal chest wall appearance and motion. Nontender with no deformity. No lesions are appreciated. Cardiovascular: Regular rate and rhythm with a normal S1 and S2. No gallops, murmurs, or rubs. Normal PMI, no JVD. No pulse deficits. Respiratory: Lungs have equal breath sounds bilaterally, clear to auscultation and percussion. No rales, rhonchi or wheezes noted. No increased work of breathing, no retractions or nasal flaring. Abdomen/GI: Soft, non-tender, with normal bowel sounds. No distension or tympany. No guarding or rebound. No evidence of tenderness throughout. Skin: Warm, dry with normal turgor. Normal color with no rashes, no lesions, and no evidence of cellulitis. MS/ Extremity: Pulses equal, no cyanosis. Neurovascular intact. Full, normal range of motion. Neuro: Awake and alert, GCS 15, oriented to person, place, time, and situation. Cranial nerves II-XII grossly intact. Motor strength 5/5 in all extremities. Sensory grossly intact. Cerebellar exam normal. Normal gait. 17:21 Back: pain, that is moderate, of the lumbar area and right flank, ROM is painful, normal spinal alignment noted, CVA tenderness, that is moderate, is noted on the right. Vital Signs: 16:52 BP 126 / 72; Pulse 109; Resp 20; Temp 98.4; Pulse Ox 99% on R/A; Weight 79.83 kg (R); aj1 Height 5 ft. 1 in. (154.94 cm) (R); Pain 9/10; 18:47 BP 105 / 64; Pulse 70; Resp 18; Pulse Ox 99% on R/A; Pain 6/10; em 16:52 Body Mass Index 33.25 (79.83 kg, 154.94 cm) aj1 MDM: 17:05 Patient medically screened. kb 17:20 Data reviewed: vital signs, nurses notes. Data interpreted: Pulse oximetry: on room air kb is 99 %. Interpretation: normal. Counseling: I had a detailed discussion with the patient and/or guardian regarding: the historical points, exam findings, and any diagnostic results supporting the discharge/admit diagnosis, the need for outpatient follow up, a family practitioner, to return to the emergency department if symptoms worsen or persist or if there are any questions or concerns that arise at home. ED course: Pt educated to return for worsening symptoms, fever, or any other concerns. . 08/17 17:24 Order name: Urine Microscopic Only; Complete Time: 18:07 kb 08/17 17:29 Order name: Urine Dipstick--Ancillary (enter results); Complete Time: 17:49 mw2 08/17 17:24 Order name: CT Stone Protocol; Complete Time: 18:13 kb 08/17 17:29 Order name: Urine --Ancillary (enter results); Complete Time: 17:49 mw2 08/17 16:59 Order name: Urine Dipstick-Ancillary (obtain specimen); Complete Time: 17:21 kb Administered Medications: 17:25 Drug: Warba 10 mg-325 mg 1 tabs Route: PO; bp 17:42 Follow up: Response: Pain is decreased bp 17:25 Drug: Macrobid 100 mg Route: PO; bp 17:41 Follow up: Response: No adverse reaction bp Disposition: 18:54 Co-signature as Attending Physician, Damon Riggs MD. rn Disposition: 08/17/19 18:18 Discharged to Home. Impression: Urinary tract infection, site not specified, Low back pain. - Condition is Stable. - Discharge Instructions: Urinary Tract Infection, Adult, [id number], Back Pain, Adult, [id number], Back Exercises, [id number]. - Prescriptions for Ibuprofen 800 mg Oral Tablet - take 1 tablet by ORAL route every 8 hours As needed take with food; 30 tablet. Macrobid 100 mg Oral Capsule - take 1 capsule by ORAL route every 12 hours for 10 days; 20 capsule. Cyclobenzaprine 10 mg Oral Tablet - take 1 tablet by ORAL route every 8 hours As needed; 21 tablet. - Work release form, Medication Reconciliation Form, Thank You Letter, Antibiotic Education, Prescription Opioid Use form. - Follow up: Emergency Department; When: As needed; Reason: Worsening of condition. Follow up: Private Physician; When: 2 - 3 days; Reason: Recheck today's complaints, Continuance of care, Re-evaluation by your physician. Signatures: Dispatcher [employer] Sylvia Guzman, TIMBO DEE-Kay Navarro RN RN aj1 Moris Oconnell, WINE AND SPIRITS CLERK WINE AND SPIRITS CLERK Damon Arshad MD MD rn Peltier, Brian RN RN bp Corrections: (The following items were deleted from the chart) 18:48 18:18 08/17/2019 18:18 Discharged to Home. Impression: Urinary tract infection, site em not specified; Low back pain. Condition is Stable. Forms are Medication Reconciliation Form, Thank You Letter, Antibiotic Education, Prescription Opioid Use. Follow up: Emergency Department; When: As needed; Reason: Worsening of condition. Follow up: Private Physician; When: 2 - 3 days; Reason: Recheck today's complaints, Continuance of care, Re-evaluation by your physician. kb
[2019-08-17 19:03] VITALS: TEMP 98.4; O2SAT 99
[2019-08-17 19:06] VITALS: BP 105/64
== END 2019-08-17 18:48 | disposition home or self-care (01) ==
LOC: ER 16:46
DX: N39.0 Urinary tract infection, site not specified (principal); Z88.5 Allergy status to narcotic agent; Z88.6 Allergy status to analgesic agent
CPT/HCPCS: 74176; 76377; 81003; 81015; 81025; 99284

== ENCOUNTER 2019-10-13 10:59 | Emergency (ER) | payer OTHER, SELFPAY ==
--- OUTSIDE RECORDS SUMMARY | 2019-10-13 11:01 | XMS REPORT ---
:1985 Author Organization [facility] Address [address] [place] [address] [address] [place] [address] Care Team Providers Name Role Phone Unavailable Unavailable Unavailable Problems This patient has no known problems. Allergies, Adverse Reactions, Alerts This patient has no known allergies or adverse reactions. Medications This patient has no known medications.
[2019-10-13] MEDS ORDERED: ONDANSETRON 4 MG/2 ML VIAL ONE (11:40)
[2019-10-13] MEDS ORDERED: MORPHINE 4 MG/ML SYR ONE (11:40)
[2019-10-13 11:55] LABS: Absolute Lymphocytes (CBC) 1.6 K/uL (0.7-4.9); Basophils % 0.3 % (0-1.3); Hematocrit 37.2 % (36.0-45.0); Lymphocytes % 11.6 % (15.3-44.8)
[2019-10-13 12:20] LABS: ALT/SGPT 32 U/L (12-78); AST/SGOT 19 U/L (15-37); Albumin 3.4 g/dL (3.4-5.0); Alkaline Phosphatase 66 U/L (45-117); BUN Blood Urea Nitrogen 11 mg/dL (7-18); Bicarbonate 24 mmol/L (21-32); Bilirubin Direct < 0.1 mg/dL (0-0.2); Bilirubin Total 0.3 mg/dL (0.2-1.0); Glucose Level 99 mg/dL (74-106); Lipase 44 U/L (73-393); Potassium 3.5 mmol/L (3.5-5.1); Protein, Total 7.2 g/dL (6.4-8.2); Sodium Level 139 mmol/L (136-145)
[2019-10-13 12:48] LABS: Urine Blood TRACE (NEG); Urine Glucose NEGATIVE (NEG); Urine Protein NEGATIVE (NEG); Urine Specific Gravity 1.025 (1.005-1.030)
--- NOTE | 2019-10-13 13:28 | RAD REPORT ---
EXAM DESCRIPTION: CTAbdomen Pelvis W Contrast - 10/13/2019 1:15 pm CLINICAL HISTORY: Abdominal pain. lower abdominal pain COMPARISON: Abdomen Pelvis W Contrast dated 07/22/2018; Stone Protocol dated 08/17/2019; Abdomen Pelvis Wo Contrast dated 06/24/2019 TECHNIQUE: Biphasic CT imaging of the abdomen and pelvis was performed with 100 ml non-ionic IV cont rast. All CT scans are performed using dose optimization technique as appropriate and may include automated exposure control or mA/KV adjustment according to patient size. FINDINGS: The lung bases are clear. The liver, spleen, pancreas, adrenal glands and kidneys are within normal limits. No bowel obstruction, free air, free fluid or abscess. The appendix is normal. No evidence of signi ficant lymphadenopathy. No suspicious bony findings. IMPRESSION: No acute intra-abdominal or pelvic finding.
--- NOTE | 2019-10-13 13:43 | ER ---
Nurse's Notes [facility] Name: Alex Walker Age: 34 yrs Sex: Female : 1985 Arrival Date: 10/13/2019 Time: 11:00 Bed 19 Private MD: Diagnosis: Streptococcal pharyngitis;Lower abdominal pain, unspecified Presentation: 10/13 11:06 Presenting complaint: Patient states: sore throat x 4 days, then since yesterday sv started having left sided abd pain. Denies urinary problems. Transition of care: patient was not received from another setting of care. Onset of symptoms was October 09, 2019. Risk Assessment: Do you want to hurt yourself or someone else? Patient reports no desire to harm self or others. Initial Sepsis Screen: Does the patient meet any 2 criteria? HR > 90 bpm. No. Patient's initial sepsis screen is negative. Does the patient have a suspected source of infection? No. Patient's initial sepsis screen is negative. Care prior to arrival: None. 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 - Social history:: Smoking status: Patient uses tobacco products, smokes one-half pack cigarettes per day. - Ebola Screening: : No symptoms or risks identified at this time. Screenin:40 Abuse screen: Denies threats or abuse. Nutritional screening: No deficits noted. em Tuberculosis screening: No symptoms or risk factors identified. Fall Risk None identified. Assessment: 11:25 General: Appears in no apparent distress. uncomfortable, Behavior is calm, cooperative, em Reports fever for 1-2 days. Pain: Complains of pain in left lower quadrant and suprapubic area Pain currently is 7 out of 10 on a pain scale. Neuro: Level of Consciousness is awake, alert, obeys commands, Oriented to person, place, time, situation, Appropriate for age. Cardiovascular: Capillary refill < 3 seconds Patient's skin is warm and dry. Respiratory: Airway is patent Respiratory effort is even, unlabored, Respiratory pattern is regular, symmetrical, Breath sounds are clear bilaterally. GI: Abdomen is flat, Bowel sounds present X 4 quads. Abd is soft X 4 quads Abdomen is tender to palpation in suprapubic area and left lower quadrant Patient currently denies nausea, vomiting. : Denies burning with urination. EENT: Throat is reddened has enlarged tonsils bilaterally Reports pain when swallowing. Derm: Skin is intact, is healthy with good turgor, Skin is pink, warm \T\ dry. Musculoskeletal: Capillary refill < 3 seconds, Range of motion: intact in all extremities. 12:30 Reassessment: Patient appears in no apparent distress at this time. Patient and/or em family updated on plan of care and expected duration. Pain level reassessed. Patient is alert, oriented x 3, equal unlabored respirations, skin warm/dry/pink. Patient states feeling better. 13:30 Reassessment: Patient appears in no apparent distress at this time. Patient and/or em family updated on plan of care and expected duration. Pain level reassessed. Patient is alert, oriented x 3, equal unlabored respirations, skin warm/dry/pink. Vital Signs: 11:07 BP 115 / 64; Pulse 92; Resp 20; Temp 99; Pulse Ox 99% ; Weight 85.73 kg; Height 5 ft. 1 sv in. (154.94 cm); Pain 7/10; 12:35 BP 98 / 52; Pulse 57; Resp 16; Temp 99.1(O); Pulse Ox 99% on R/A; mh5 13:06 BP 104 / 57; Pulse 59; Resp 18; Pulse Ox 99% on R/A; Pain 4/10; em 11:07 Body Mass Index 35.71 (85.73 kg, 154.94 cm) sv ED Course: 11:00 Patient arrived in ED. as 11:03 Moris Oconnell LVN is Primary Nurse. em 11:03 Dov Torres PA is PHCP. [facility] 11:03 Rober Manuel MD is Attending Physician. [facility] 11:07 Triage completed. sv 11:08 Arm band placed on. sv 11:48 Patient has correct armband on for positive identification. Placed in gown. Bed in low mh5 position. Call light in reach. Side rails up X 1. Warm blanket given. Pulse ox on. NIBP on. 11:48 Initial lab(s) drawn, by me, sent to lab. Strep swab sent to lab. Inserted saline lock: [facility] 22 gauge in left antecubital area, using aseptic technique. Blood collected. 11:49 Strep Sent. [facility] 11:49 Basic Metabolic Panel Sent. [facility] 11:49 CBC with Diff Sent. [facility] 11:49 Creatinine for Radiology Sent. [facility] 11:50 Hepatic Function Sent. [facility] 11:50 Lipase Sent. [facility] 13:15 CT Abd/Pelvis - IV Contrast Only In Process Unspecified. EDMS 13:59 No provider procedures requiring assistance completed. IV discontinued, intact, em bleeding controlled, No redness/swelling at site. Pressure dressing applied. Administered Medications: 11:50 Drug: Zofran 4 mg Route: IVP; Site: left antecubital; ss 12:30 Follow up: Response: No adverse reaction em 11:52 Drug: morphine 4 mg Route: IVP; Site: left antecubital; ss 12:30 Follow up: Response: No adverse reaction; Marked relief of symptoms; Pain is decreased em Outcome: 13:42 Discharge ordered by MD. [facility] 13:59 Discharged to home ambulatory. em 13:59 Condition: good 13:59 Discharge instructions given to patient, Instructed on discharge instructions, follow up and referral plans. medication usage, Demonstrated understanding of instructions, follow-up care, medications, Prescriptions given X 1. 14:01 Patient left the ED. em Signatures: Dispatcher [employer] Debbie Jimenez, RN RN Dov Waldron PA PA Moris Vasquez, ASSISTANT WOMEN'S SOCCER COACH ASSISTANT WOMEN'S SOCCER COACH em Ira Gracia Shelby, RN RN Betsy Gracia [facility]
--- NOTE | 2019-10-13 13:43 | EDPHYS ---
Physician Documentation [facility] Name: Alex Walker Age: 34 yrs Sex: Female : 1985 Arrival Date: 10/13/2019 Time: 11:00 Bed 19 Private MD: ED Physician Rober Manuel HPI: 10/13 11:31 This 34 yrs old Female presents to ER via Ambulatory with complaints of Sore jmm Throat, Abdominal Pain. 11:31 The patient presents with sore throat. Onset: The symptoms/episode began/occurred jmm gradually, 1 day(s) ago. Modifying factors: The symptoms are alleviated by nothing, the symptoms are aggravated by nothing. Associated signs and symptoms: Pertinent positives:. Patient complaints of left lower abdominal pain which began yesterday. Denies vomiting or diarrhea. LMP 10/03/2019. 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 - Social history:: Smoking status: Patient uses tobacco products, smokes one-half pack cigarettes per day. - Ebola Screening: : No symptoms or risks identified at this time. ROS: 11:31 Constitutional: Negative for fever, chills, and weight loss, Cardiovascular: Negative jmm for chest pain, palpitations, and edema, Respiratory: Negative for shortness of breath, cough, wheezing, and pleuritic chest pain. 11:31 ENT: Positive for sore throat. 11:31 Abdomen/GI: Positive for abdominal pain. 11:31 All other systems are negative. Exam: 11:31 Constitutional: This is a well developed, well nourished patient who is awake, alert, jmm and in no acute distress. Head/Face: atraumatic. Eyes: EOMI, no conjunctival erythema appreciated 11:31 Chest/axilla: Normal chest wall appearance and motion. Cardiovascular: Regular rate and rhythm. No edema appreciated Respiratory: Normal respirations, no respiratory distress appreciated 11:31 ENT: Posterior pharynx: erythema, that is moderate. 11:31 Abdomen/GI: Inspection: abdomen appears normal, Bowel sounds: normal, Palpation: soft, moderate abdominal tenderness, in the suprapubic area and left lower quadrant. 11:31 Musculoskeletal/extremity: ROM: intact in all extremities. 11:31 Skin: Appearance: Color: normal in color. 11:31 Neuro: Orientation: is normal, Mentation: is normal, Memory: is normal. 11:31 Psych: Behavior/mood is pleasant, cooperative. Vital Signs: 11:07 BP 115 / 64; Pulse 92; Resp 20; Temp 99; Pulse Ox 99% ; Weight 85.73 kg; Height 5 ft. 1 sv in. (154.94 cm); Pain 7/10; 12:35 BP 98 / 52; Pulse 57; Resp 16; Temp 99.1(O); Pulse Ox 99% on R/A; mh5 13:06 BP 104 / 57; Pulse 59; Resp 18; Pulse Ox 99% on R/A; Pain 4/10; em 11:07 Body Mass Index 35.71 (85.73 kg, 154.94 cm) sv MDM: 11:26 Patient medically screened. [facility] 13:40 Data reviewed: vital signs, nurses notes. Counseling: I had a detailed discussion with antione the patient and/or guardian regarding: the historical points, exam findings, and any diagnostic results supporting the discharge/admit diagnosis, lab results, radiology results, the need for outpatient follow up, to return to the emergency department if symptoms worsen or persist or if there are any questions or concerns that arise at home. ED course: Patient is alert and non toxic in appearance in the ED. CT imaging negative. Strep positive. Will treat with oral abx. Patient otherwise given strict return precautions. Patient understood and agrees with the plan of care. . 10/13 11:31 Order name: Basic Metabolic Panel; Complete Time: 12:52 [facility] 10/13 11:31 Order name: CBC with Diff; Complete Time: 11:59 [facility] 10/13 11:31 Order name: Creatinine for Radiology; Complete Time: 12:52 [facility] 10/13 11:31 Order name: Hepatic Function; Complete Time: 12:52 [facility] 10/13 11:31 Order name: Lipase; Complete Time: 12:52 [facility] 10/13 11:35 Order name: Strep; Complete Time: 12:00 em 10/13 11:31 Order name: IV Saline Lock; Complete Time: 11:49 [facility] 10/13 11:31 Order name: Labs collected and sent; Complete Time: 11:49 [facility] 10/13 11:31 Order name: Urine Dipstick-Ancillary (obtain specimen); Complete Time: 12:17 [facility] 10/13 12:18 Order name: Urine Dipstick--Ancillary (enter results); Complete Time: 12:52 10/13 12:18 Order name: Urine --Ancillary (enter results); Complete Time: 12:52 10/13 13:04 Order name: CT Abd/Pelvis - IV Contrast Only; Complete Time: 13:30 [facility] 10/13 11:31 Order name: Urine Test (obtain specimen); Complete Time: 12:17 [facility] Administered Medications: 11:50 Drug: Zofran 4 mg Route: IVP; Site: left antecubital; ss 12:30 Follow up: Response: No adverse reaction em 11:52 Drug: morphine 4 mg Route: IVP; Site: left antecubital; ss 12:30 Follow up: Response: No adverse reaction; Marked relief of symptoms; Pain is decreased em Disposition: 15:19 Co-signature as Attending Physician, Rober Manuel MD. ma2 Disposition: 10/13/19 13:42 Discharged to Home. Impression: Streptococcal pharyngitis, Lower abdominal pain, unspecified. - Condition is Stable. - Discharge Instructions: Pharyngitis, Strep Throat. - Prescriptions for Amoxicillin 875 mg Oral Tablet - take 1 tablet by ORAL route every 12 hours for 10 days; 20 tablet. - Medication Reconciliation Form, Thank You Letter, Antibiotic Education, Prescription Opioid Use form. - Follow up: Private Physician; When: 2 - 3 days; Reason: Recheck today's complaints, Continuance of care, Re-evaluation by your physician. Signatures: Dispatcher [employer] Debbie Jimenez, RN Dov Sanchez PA PA jmm Munoz, Edgar, SCALLOP DREDGER SCALLOP DREDGER Marla Ware RN RN ss Alzahri, Mohammad, MD MD ma2 Corrections: (The following items were deleted from the chart) 14:01 13:42 10/13/2019 13:42 Discharged to Home. Impression: Streptococcal pharyngitis; Lower em abdominal pain, unspecified. Condition is Stable. Forms are Medication Reconciliation Form, Thank You Letter, Antibiotic Education, Prescription Opioid Use. Follow up: Private Physician; When: 2 - 3 days; Reason: Recheck today's complaints, Continuance of care, Re-evaluation by your physician. antione
[2019-10-13 14:11] VITALS: O2SAT 99
[2019-10-13 14:12] VITALS: TEMP 99.1
[2019-10-13 14:14] VITALS: BP 104/57
== END 2019-10-13 14:01 | disposition home or self-care (01) ==
LOC: ER 10:59
DX: J02.0 Streptococcal pharyngitis (principal); F17.210 Nicotine dependence, cigarettes, uncomplicated; Z88.5 Allergy status to narcotic agent
CPT/HCPCS: 36415; 74177; 80048; 80076; 81003; 81025; 83690; 85025; 87081; 96374; 96375; 99284; J2405; Q9967

== ENCOUNTER 2019-11-10 05:40 | Emergency (ER) | payer SELFPAY ==
--- OUTSIDE RECORDS SUMMARY | 2019-11-10 05:42 | XMS REPORT ---
:1985 [facility] Address [address] [place] [address] Dr. Holley [address] [place] [id number] Care Team Providers Name Role Phone Unavailable Unavailable Unavailable Problems This patient has no known problems. Allergies, Adverse Reactions, Alerts This patient has no known allergies or adverse reactions. Medications This patient has no known medications.
[2019-11-10 06:15] LABS: Absolute Lymphocytes (CBC) 2.1 K/uL (0.7-4.9); Basophils % 0.6 % (0-1.3); Hematocrit 40.7 % (36.0-45.0); Lymphocytes % 24.7 % (15.3-44.8); MPV 6.5 fL (7.6-11.3); RBC Red Blood Cell Count 4.65 M/uL (3.86-4.86)
[2019-11-10 06:16] LABS: Protime INR 1.07
[2019-11-10 06:33] LABS: ALT/SGPT 22 U/L (12-78); AST/SGOT 12 U/L (15-37); Albumin 4.1 g/dL (3.4-5.0); Alkaline Phosphatase 70 U/L (45-117); BUN Blood Urea Nitrogen 17 mg/dL (7-18); Bicarbonate 24 mmol/L (21-32); Bilirubin Direct 0.1 mg/dL (0-0.2); Bilirubin Total 0.4 mg/dL (0.2-1.0); Glucose Level 111 mg/dL (74-106); NT PRO-BNP 18 pg/mL (<125); Potassium 3.7 mmol/L (3.5-5.1); Protein, Total 8.7 g/dL (6.4-8.2); Sodium Level 141 mmol/L (136-145); Troponin (Emerg Dept Use Only) < 0.02 ng/mL (0.0-0.045)
[2019-11-10 07:00] LABS: Urine Blood TRACE (NEG); Urine Glucose NEGATIVE (NEG); Urine Protein NEGATIVE (NEG); Urine Specific Gravity 1.025 (1.005-1.030); Urine pH 6.5 (5.0-7.0)
[2019-11-10] MEDS ORDERED: CEFTRIAXONE/SWI 1gm 1 GM/10 ML SYR ONE (07:10)
--- NOTE | 2019-11-10 08:09 | RAD REPORT ---
EXAM DESCRIPTION: US - Extrem Venous W Compress [place] - 11/10/2019 7:32 am CLINICAL HISTORY: PAIN Bilateral leg edema and swelling. COMPARISON: Extremity Venous Uni Ltd dated 04/19/2019 TECHNIQUE: Real-time sonographic interrogation of the left and right lower extremity deep venous sys tems was performed. FINDINGS: Normal compressibility, flow augmentation, phasic flow and spontaneous flow is identified in both the left and right lower extremity deep venous systems. IMPRESSION: No sonographic evidence of left or right lower extremity deep venous thrombosis.
--- NOTE | 2019-11-10 08:26 | RAD REPORT ---
EXAM DESCRIPTION: RAD - Chest Single View - 11/10/2019 6:31 am CLINICAL HISTORY: CHEST PAIN Chest pain. COMPARISON: Abdomen 1 View (KUB) dated 03/30/2019; Chest Single View dated 02/08/2019; Abdomen 1 View ( KUB) dated 11/12/2018 FINDINGS: Portable technique limits examination quality. The lungs are grossly clear. The heart is normal in size. No displaced fractures. IMPRESSION: No acute intrathoracic process suspected.
--- NOTE | 2019-11-10 09:43 | ER ---
Nurse's Notes [facility] Name: Alex Walker Age: 34 yrs Sex: Female : 1985 Arrival Date: 11/10/2019 Time: 05:40 Bed 6 Private MD: Diagnosis: Other chest pain;Palpitations;Urinary tract infection, site not specified Presentation: 11/10 05:49 Presenting complaint: Patient states: I started having chest pain at 2100 yesterday. I jb4 have and irregular heartbeat. I am having numbness and tingling on my lips and face, and I feel short of breath. Transition of care: patient was not received from another setting of care. Onset of symptoms was November 09, 2019. Risk Assessment: Do you want to hurt yourself or someone else? Patient reports no desire to harm self or others. Initial Sepsis Screen: Does the patient meet any 2 criteria? HR > 90 bpm. Yes Does the patient have a suspected source of infection? No. Patient's initial sepsis screen is negative. Care prior to arrival: None. 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 - Social history:: Smoking status: Patient reports the use of cigarette tobacco products, smokes one-half pack cigarettes per day, Patient uses alcohol, but reports only rare drinking. Patient/guardian denies using street drugs. - Ebola Screening: : No symptoms or risks identified at this time. - Family history:: not pertinent. Screenin:53 Abuse screen: Denies threats or abuse. Nutritional screening: No deficits noted. jb4 Tuberculosis screening: No symptoms or risk factors identified. Fall Risk None identified. Assessment: 05:53 General: Appears in no apparent distress. uncomfortable, Behavior is calm, cooperative, jb4 appropriate for age. Pain: Complains of pain in anterior aspect of right upper chest and anterior aspect of left upper chest Pain does not radiate. Pain currently is 7 out of 10 on a pain scale. Quality of pain is described as burning, tingling, Pain began 1 day ago. Neuro: Level of Consciousness is awake, alert, obeys commands, Oriented to person, place, time, situation. Cardiovascular: Patient's skin is warm and dry. Respiratory: Airway is patent Respiratory effort is even, unlabored, Respiratory pattern is regular, symmetrical. GI: No signs and/or symptoms were reported involving the gastrointestinal system. : No signs and/or symptoms were reported regarding the genitourinary system. EENT: No signs and/or symptoms were reported regarding the EENT system. Derm: Skin is intact, Skin is pink, warm \T\ dry. Musculoskeletal: Circulation, motion, and sensation intact. Range of motion: intact in all extremities. 07:19 General: Appears in no apparent distress. comfortable, Behavior is calm, cooperative, sv appropriate for age. Pain: Denies pain. Neuro: Level of Consciousness is awake, alert, obeys commands, Oriented to person, place, time, situation, Moves all extremities. Full function. Cardiovascular: Patient's skin is warm and dry. Cardiovascular: Denies chest pain. Respiratory: Airway is patent Respiratory effort is even, unlabored, Respiratory pattern is regular, symmetrical. Derm: Skin is pink, warm \T\ dry. Musculoskeletal: Reports numbness in forehead and mouth. 08:40 Reassessment: Patient appears in no apparent distress at this time. No changes from sv previously documented assessment. Patient and/or family updated on plan of care and expected duration. Pain level reassessed. Patient is alert, oriented x 3, equal unlabored respirations, skin warm/dry/pink. 09:59 Reassessment: Patient appears in no apparent distress at this time. No changes from sv previously documented assessment. Patient and/or family updated on plan of care and expected duration. Pain level reassessed. Patient is alert, oriented x 3, equal unlabored respirations, skin warm/dry/pink. Vital Signs: 05:53 BP 136 / 86; Pulse 96; Resp 20; Temp 98.9(O); Pulse Ox 100% on R/A; Weight 84.82 kg jb4 (R); Height 5 ft. 1 in. (154.94 cm) (R); Pain 7/10; 06:31 BP 122 / 79; Pulse 77; Resp 17; Pulse Ox 100% on R/A; rv 07:19 BP 113 / 71; Pulse 60; Resp 15; Pulse Ox 100% on R/A; sv 08:07 BP 107 / 67; Pulse 56 MON; Resp 17; Pulse Ox 100% ; sv 09:30 BP 111 / 65; Pulse 61; Resp 14; Pulse Ox 100% ; sv 05:53 Body Mass Index 35.33 (84.82 kg, 154.94 cm) jb4 08:07 Sinus bradycardia sv ED Course: 05:40 Patient arrived in ED. cl3 05:49 Ruben Ozuna, RN is Primary Nurse. jb4 05:52 Triage completed. jb4 05:53 Arm band placed on right wrist. jb4 05:53 Patient has correct armband on for positive identification. Bed in low position. Call jb4 light in reach. Side rails up X 1. Pulse ox on. NIBP on. 05:53 Patient maintains SpO2 saturation greater than 95% on room air. jb4 06:00 Deondre Melchor MD is Attending Physician. jordyn 06:07 Inserted saline lock: 20 gauge in right antecubital area, using aseptic technique. oe Blood collected. 06:31 XRAY Chest (1 view) In Process Unspecified. EDMS 06:41 Radiology exam delayed due to Patient is having an US done at this time. kw1 07:11 CT Chest For PE Angio In Process Unspecified. EDMS 07:15 Patient moved back from CT. sv 07:20 Primary Nurse role handed off by Ruben Ozuna, RN sv 07:20 Debbie Fitch, ANIRUDH is Primary Nurse. sv 07:33 US Extremity Venous W Compression [place] In Process Unspecified. EDMS 07:37 Sylvia Lemus FNP-C is PHCP. kb 07:41 Repeat lab(s) drawn. by me, sent to lab. ms 07:56 Basic Metabolic Panel Sent. sv 07:57 Awaiting lab results. sv 08:33 Awaiting radiology results. Awaiting re-evaluation by ER provider. sv 09:43 Vinny Dumont MD is Referral Physician. kb 09:59 No provider procedures requiring assistance completed. IV discontinued, intact, sv bleeding controlled, No redness/swelling at site. Pressure dressing applied. Administered Medications: 06:30 Drug: NS 0.9% 1000 ml Route: IV; Rate: 1 bolus; Site: left antecubital; rv 06:30 Drug: Aspirin Chewable Tablet 162 mg Route: PO; rv 07:19 Follow up: Response: No adverse reaction sv 06:30 Drug: Lopressor (metoprolol TARTRATE) 50 mg Route: PO; rv 07:19 Follow up: Response: No adverse reaction sv 07:18 Drug: Rocephin 1 grams Route: IV; Rate: per protocol; Site: left antecubital; sv 07:20 Follow up: Response: No adverse reaction; IV Status: Completed infusion; IV Intake: 10mlsv Intake: 07:20 IV: 10ml; Total: 10ml. sv Outcome: 09:43 Discharge ordered by . kb 09:59 Patient left the ED. sg 09:59 Discharged to home ambulatory. sv 09:59 Condition: stable 09:59 Discharge instructions given to patient, Instructed on discharge instructions, follow up and referral plans. medication usage, Demonstrated understanding of instructions, follow-up care, medications, Prescriptions given X 2. Signatures: Dispatcher [employer] EDMS Sylvia Lemus, CORONER/MEDICAL EXAMINER-C CORONER/MEDICAL EXAMINER-Ckb Debbie Fitch, RN Andre Kuhn RN RN sg Anderson, Corey, MD MD cha Villarreal, Maria ms Bryson, James, RN RN jb4 Francisco J Grider Kimberly kw1 Danilo Nascimento RN RN rv Lewis, Charde cl3
--- NOTE | 2019-11-10 09:44 | EDPHYS ---
Physician Documentation [facility] Name: Alex Walker Age: 34 yrs Sex: Female : 1985 Arrival Date: 11/10/2019 Time: 05:40 Bed 6 Private MD: ED Physician Deondre Melchor HPI: 11/10 06:23 This 34 yrs old Female presents to ER via Wheelchair with complaints of Chest jordyn Pain. 06:23 The patient or guardian reports chest pain that is located primarily in the anterior jordyn chest wall, bilaterally. The pain does not radiate. Associated signs and symptoms: The patient has no apparent associated signs or symptoms. The chest pain is described as burning. Duration: The patient or guardian reports multiple episodes, with no pattern. Modifying factors: The symptoms are alleviated by nothing. the symptoms are aggravated by nothing. Severity of pain: At its worst the pain was mild in the emergency department the pain is unchanged. The patient has not experienced similar symptoms in the past. 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 - Social history:: Smoking status: Patient reports the use of cigarette tobacco products, smokes one-half pack cigarettes per day, Patient uses alcohol, but reports only rare drinking. Patient/guardian denies using street drugs. - Ebola Screening: : No symptoms or risks identified at this time. - Family history:: not pertinent. ROS: 06:23 Constitutional: Negative for fever, chills, and weight loss, Eyes: Negative for injury, jordyn pain, redness, and discharge, ENT: Negative for injury, pain, and discharge, Neck: Negative for injury, pain, and swelling, Respiratory: Negative for shortness of breath, cough, wheezing, and pleuritic chest pain, Abdomen/GI: Negative for abdominal pain, nausea, vomiting, diarrhea, and constipation, Back: Negative for injury and pain, : Negative for injury, bleeding, discharge, and swelling, MS/Extremity: Negative for injury and deformity, Skin: Negative for injury, rash, and discoloration, Neuro: Negative for headache, weakness, numbness, tingling, and seizure, Psych: Negative for depression, anxiety, suicide ideation, homicidal ideation, and hallucinations, Endocrine: Negative for neck swelling, polydipsia, polyuria, polyphagia, and marked weight changes, Hematologic/Lymphatic: Negative for swollen nodes, abnormal bleeding, and unusual bruising. 06:23 Cardiovascular: Positive for chest pain, palpitations. Exam: 06:23 Constitutional: This is a well developed, well nourished patient who is awake, alert, jordyn and in no acute distress. Head/Face: Normocephalic, atraumatic. Eyes: Pupils equal round and reactive to light, extra-ocular motions intact. Lids and lashes normal. Conjunctiva and sclera are non-icteric and not injected. Cornea within normal limits. Periorbital areas with no swelling, redness, or edema. ENT: Nares patent. No nasal discharge, no septal abnormalities noted. Tympanic membranes are normal and external auditory canals are clear. Oropharynx with no redness, swelling, or masses, exudates, or evidence of obstruction, uvula midline. Mucous membranes moist. Neck: Trachea midline, no thyromegaly or masses palpated, and no cervical lymphadenopathy. Supple, full range of motion without nuchal rigidity, or vertebral point tenderness. No Meningismus. Chest/axilla: Normal chest wall appearance and motion. Nontender with no deformity. No lesions are appreciated. Cardiovascular: Regular rate and rhythm with a normal S1 and S2. No gallops, murmurs, or rubs. Normal PMI, no JVD. No pulse deficits. Respiratory: Lungs have equal breath sounds bilaterally, clear to auscultation and percussion. No rales, rhonchi or wheezes noted. No increased work of breathing, no retractions or nasal flaring. Abdomen/GI: Soft, non-tender, with normal bowel sounds. No distension or tympany. No guarding or rebound. No evidence of tenderness throughout. Back: No spinal tenderness. No costovertebral tenderness. Full range of motion. Skin: Warm, dry with normal turgor. Normal color with no rashes, no lesions, and no evidence of cellulitis. MS/ Extremity: Pulses equal, no cyanosis. Neurovascular intact. Full, normal range of motion. Neuro: Awake and alert, GCS 15, oriented to person, place, time, and situation. Cranial nerves II-XII grossly intact. Motor strength 5/5 in all extremities. Sensory grossly intact. Cerebellar exam normal. Normal gait. Psych: Awake, alert, with orientation to person, place and time. Behavior, mood, and affect are within normal limits. Vital Signs: 05:53 BP 136 / 86; Pulse 96; Resp 20; Temp 98.9(O); Pulse Ox 100% on R/A; Weight 84.82 kg jb4 (R); Height 5 ft. 1 in. (154.94 cm) (R); Pain 7/10; 06:31 BP 122 / 79; Pulse 77; Resp 17; Pulse Ox 100% on R/A; rv 07:19 BP 113 / 71; Pulse 60; Resp 15; Pulse Ox 100% on R/A; sv 08:07 BP 107 / 67; Pulse 56 MON; Resp 17; Pulse Ox 100% ; sv 09:30 BP 111 / 65; Pulse 61; Resp 14; Pulse Ox 100% ; sv 05:53 Body Mass Index 35.33 (84.82 kg, 154.94 cm) jb4 08:07 Sinus bradycardia sv MDM: 06:00 Patient medically screened. [facility] 06:27 Data reviewed: vital signs, nurses notes, lab test result(s), EKG, radiologic studies, [facility] CT scan, plain films. 11/10 05:58 Order name: Basic Metabolic Panel [facility] 11/10 05:58 Order name: CBC with Diff; Complete Time: 06:32 [facility] 11/10 05:58 Order name: LFT's; Complete Time: 06:36 [facility] 11/10 05:58 Order name: Magnesium; Complete Time: 06:36 [facility] 11/10 05:58 Order name: NT PRO-BNP; Complete Time: 06:36 [facility] 11/10 05:58 Order name: PT-INR; Complete Time: 06:32 [facility] 11/10 05:58 Order name: Troponin (emerg Dept Use Only); Complete Time: 06:36 [facility] 11/10 05:58 Order name: XRAY Chest (1 view); Complete Time: 08:30 [facility] 11/10 05:58 Order name: Basic Metabolic Panel; Complete Time: 06:36 EDMS 11/10 06:04 Order name: Digoxin; Complete Time: 06:52 [facility] 11/10 06:46 Order name: Urine Dipstick--Ancillary (enter results) ms 11/10 06:46 Order name: Urine --Ancillary (enter results) ms 11/10 06:53 Order name: Urine Culture [facility] 11/10 06:56 Order name: Troponin (emerg Dept Use Only): 730am; Complete Time: 08:11 [facility] 11/10 05:58 Order name: EKG; Complete Time: 05:59 [facility] 11/10 05:58 Order name: Cardiac monitoring; Complete Time: 05:59 [facility] 11/10 05:58 Order name: EKG - Nurse/Tech; Complete Time: 05:59 [facility] 11/10 05:58 Order name: IV Saline Lock; Complete Time: 06:09 [facility] 11/10 05:58 Order name: Labs collected and sent; Complete Time: 06:09 [facility] 11/10 05:58 Order name: O2 Per Protocol; Complete Time: 05:59 [facility] 11/10 05:58 Order name: O2 Sat Monitoring; Complete Time: 05:59 [facility] 11/10 06:04 Order name: Urine Dipstick-Ancillary (obtain specimen); Complete Time: 07:15 [facility] 11/10 06:04 Order name: Urine Test (obtain specimen); Complete Time: 07:15 [facility] 11/10 06:23 Order name: US Extremity Venous W Compression [place]; Complete Time: 08:11 [facility] 11/10 06:23 Order name: CT Chest For PE Angio; Complete Time: 09:48 [facility] Administered Medications: 06:30 Drug: NS 0.9% 1000 ml Route: IV; Rate: 1 bolus; Site: left antecubital; rv 06:30 Drug: Aspirin Chewable Tablet 162 mg Route: PO; rv 07:19 Follow up: Response: No adverse reaction sv 06:30 Drug: Lopressor (metoprolol TARTRATE) 50 mg Route: PO; rv 07:19 Follow up: Response: No adverse reaction sv 07:18 Drug: Rocephin 1 grams Route: IV; Rate: per protocol; Site: left antecubital; sv 07:20 Follow up: Response: No adverse reaction; IV Status: Completed infusion; IV Intake: 10mlsv Disposition: 11/10/19 09:43 Discharged to Home. Impression: Other chest pain, Palpitations, Urinary tract infection, site not specified. - Condition is Stable. - Discharge Instructions: Nonspecific Chest Pain, Palpitations, Urinary Tract Infection, Adult, Urinary Tract Infection, Adult, [id number], Aspirin and Your Heart, Palpitations, [id number]. - Prescriptions for Toprol XL 25 mg Oral Tablet - take 1 tablet by ORAL route once daily; 20 tablet. Macrobid 100 mg Oral Capsule - take 1 capsule by ORAL route every 12 hours for 7 days; 14 capsule. - Medication Reconciliation Form, Thank You Letter, Antibiotic Education, Prescription Opioid Use, Work release form form. - Follow up: Private Physician; When: 2 - 3 days; Reason: Recheck today's complaints, Continuance of care, Re-evaluation by your physician. Follow up: Vinny Dumont; When: 2 - 3 days; Reason: Recheck today's complaints, Re-evaluation by your physician. - Problem is new. - Symptoms have improved. Signatures: Dispatcher [employer] EDMS Sylvia Lemus, WET PROCESS ASSISTANT HEAD MILLER-C WET PROCESS ASSISTANT HEAD MILLER-CkDebbie Maddox, RN RN Andre Ahn RN RN sg Anderson, Corey, MD MD cha Bryson, James, RN RN jbDanilo Barclay RN RN rv Corrections: (The following items were deleted from the chart) 09:59 09:43 11/10/2019 09:43 Discharged to Home. Impression: Other chest pain; Palpitations; sg Urinary tract infection, site not specified. Condition is Stable. Discharge Instructions: Nonspecific Chest Pain, Palpitations, Aspirin and Your Heart, Palpitations, [id number]-[id number], Urinary Tract Infection, Adult, Urinary Tract Infection, Adult, [id number]-[id number]. Prescriptions for Toprol XL 25 mg Oral Tablet - take 1 tablet by ORAL route once daily; 20 tablet, Macrobid 100 mg Oral Capsule - take 1 capsule by ORAL route every 12 hours for 7 days; 14 capsule. and Forms are Medication Reconciliation Form, Thank You Letter, Antibiotic Education, Prescription Opioid Use. Follow up: Private Physician; When: 2 - 3 days; Reason: Recheck today's complaints, Continuance of care, Re-evaluation by your physician. Follow up: Vinny Dumont; When: 2 - 3 days; Reason: Recheck today's complaints, Re-evaluation by your physician. Problem is new. Symptoms have improved. kb
--- NOTE | 2019-11-10 09:47 | RAD REPORT ---
EXAM DESCRIPTION: CT - Chest For Pe Angio - 11/10/2019 7:10 am CLINICAL HISTORY: Chest pain. Chest pain;Dyspnea COMPARISON: No comparisons TECHNIQUE: CT angiogram of the pulmonary arteries was performed with MIP. All CT scans are performed using dose optimization technique as appropriate and may include automated exposure control or mA/KV adjustment according to patient size. FINDINGS: No evidence of pulmonary thromboembolism. No acute aortic finding demonstrated. The included lung lemos are clear. The inferior most aspects of the lung lemos not included on stud y. No significant pericardial or pleural fluid. Small amount of tissue is seen in the anterior mediastin um which may represent a small amount rebound or residual thymus. No concerning bony finding. IMPRESSION: No evidence of pulmonary thromboembolism.
[2019-11-10 10:16] VITALS: TEMP 98.9; O2SAT 100
[2019-11-10 10:22] VITALS: BP 111/65
--- NOTE | 2019-11-10 10:27 | EKG ---
Test Date: 2019-11-10 Test Time: 05:52:02 Lead Consultant: ESTEFANI MEASUREMENT RESULTS: Intervals: Rate: 77 HI: 130 QRSD: 82 QT: 344 QTc: 389 [place]: P: 37 HI: 130 QRS: 34 T: 25 INTERPRETIVE STATEMENTS: Normal sinus rhythm Normal ECG Compared to ECG 02/08/2019 20:53:42 No significant changes Electronically Signed On 11-10-19 10:26:58 PHYSICIST ASTROPHYSICS by Taz Gonzales
== END 2019-11-10 09:59 | disposition home or self-care (01) ==
LOC: ER 05:40
DX: R00.2 Palpitations (principal); N39.0 Urinary tract infection, site not specified; F17.210 Nicotine dependence, cigarettes, uncomplicated; F31.9 Bipolar disorder, unspecified; Z88.6 Allergy status to analgesic agent
CPT/HCPCS: 36415; 71045; 71275; 80048; 80076; 80162; 81003; 81025; 83735; 83880; 84484; 85025; 85610; 87086; 87088; 93005; 93970; 96374; 99285; J0696; Q9967

== ENCOUNTER 2019-12-07 22:29 | Emergency (ER) | payer SELFPAY ==
--- OUTSIDE RECORDS SUMMARY | 2019-12-07 22:31 | XMS REPORT ---
:1985 [facility] Address [address] [place] [address] [place] [id number] Care Team Providers Name Role Phone Unavailable Unavailable Unavailable Problems This patient has no known problems. Allergies, Adverse Reactions, Alerts This patient has no known allergies or adverse reactions. Medications This patient has no known medications.
[2019-12-07] MEDS ORDERED: NA CHLORIDE 0.9% 1,000 ML ONE (22:59)
[2019-12-07] MEDS ORDERED: FENTANYL CITR 100 MCG/2 ML ONE (23:10)
[2019-12-07 23:14] LABS: Absolute Lymphocytes (CBC) 2.7 K/uL (0.7-4.9); Basophils % 0.6 % (0-1.3); Hematocrit 37.2 % (36.0-45.0); Lymphocytes % 28.9 % (15.3-44.8); MPV 7.2 fL (7.6-11.3); RBC Red Blood Cell Count 4.26 M/uL (3.86-4.86)
[2019-12-07 23:32] LABS: ALT/SGPT 17 U/L (12-78); AST/SGOT 13 U/L (15-37); Albumin 3.4 g/dL (3.4-5.0); Alkaline Phosphatase 56 U/L (45-117); BUN Blood Urea Nitrogen 16 mg/dL (7-18); Bicarbonate 23 mmol/L (21-32); Bilirubin Direct < 0.1 mg/dL (0-0.2); Bilirubin Total 0.2 mg/dL (0.2-1.0); Glucose Level 99 mg/dL (74-106); Lipase 91 U/L (73-393); Potassium 3.5 mmol/L (3.5-5.1); Protein, Total 7.2 g/dL (6.4-8.2); Sodium Level 141 mmol/L (136-145)
[2019-12-07 23:32] LABS: Urine Culture Reflex Order NOT NEEDED
[2019-12-07 23:33] LABS: Urine Bacteria >50 /HPF (<20)
[2019-12-07 23:34] LABS: Urine RBC <5 /HPF (NONE SEEN)
--- NOTE | 2019-12-07 23:42 | EDPHYS ---
Physician Documentation [facility] Name: Alex Walker Age: 34 yrs Sex: Female : 1985 Arrival Date: 12/07/2019 Time: 22:32 Bed 19 Private MD: VINNY HIDALGO ED Physician Rober Manuel HPI: 12/07 23:48 This 34 yrs old Female presents to ER via Ambulatory with complaints of snw Abdominal Pain. 23:48 The patient presents with abdominal pain in the upper abdomen. Onset: The snw symptoms/episode began/occurred suddenly, 4 day(s) ago, and became persistent. The symptoms do not radiate. Associated signs and symptoms: Pertinent positives: nausea. The symptoms are described as sharp. Severity of pain: At its worst the pain was moderate severe in the emergency department the pain is unchanged. The patient has not experienced similar symptoms in the past. It is unknown whether or not the patient has recently seen a physician. 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 - Coronavirus screen:: The patient has NOT traveled to [place] in the past 14 days. Proceed with normal triage process as indicated. - Social history:: Smoking status: Patient reports the use of cigarette tobacco products, smokes one-half pack cigarettes per day, Patient uses alcohol, but reports only rare drinking. Patient/guardian denies using street drugs. - Ebola Screening: : No symptoms or risks identified at this time. ROS: 23:48 Constitutional: Negative for fever, chills, and weight loss, Eyes: Negative for injury, snw pain, redness, and discharge, ENT: Negative for injury, pain, and discharge, Neck: Negative for injury, pain, and swelling, Cardiovascular: Negative for chest pain, palpitations, and edema, Respiratory: Negative for shortness of breath, cough, wheezing, and pleuritic chest pain, Back: Negative for injury and pain, : Negative for injury, bleeding, discharge, and swelling, MS/Extremity: Negative for injury and deformity, Skin: Negative for injury, rash, and discoloration, Neuro: Negative for headache, weakness, numbness, tingling, and seizure. 23:48 Abdomen/GI: Positive for abdominal pain, nausea. Exam: 23:47 Constitutional: This is a well developed, well nourished patient who is awake, alert, snw and in no acute distress. Head/Face: Normocephalic, atraumatic. Eyes: Pupils equal round and reactive to light, extra-ocular motions intact. Lids and lashes normal. Conjunctiva and sclera are non-icteric and not injected. Cornea within normal limits. Periorbital areas with no swelling, redness, or edema. ENT: Nares patent. No nasal discharge, no septal abnormalities noted. Tympanic membranes are normal and external auditory canals are clear. Oropharynx with no redness, swelling, or masses, exudates, or evidence of obstruction, uvula midline. Mucous membranes moist. Neck: Trachea midline, no thyromegaly or masses palpated, and no cervical lymphadenopathy. Supple, full range of motion without nuchal rigidity, or vertebral point tenderness. No Meningismus. Chest/axilla: Normal chest wall appearance and motion. Nontender with no deformity. No lesions are appreciated. Cardiovascular: Regular rate and rhythm with a normal S1 and S2. No gallops, murmurs, or rubs. Normal PMI, no JVD. No pulse deficits. Respiratory: Lungs have equal breath sounds bilaterally, clear to auscultation and percussion. No rales, rhonchi or wheezes noted. No increased work of breathing, no retractions or nasal flaring. Back: No spinal tenderness. No costovertebral tenderness. Full range of motion. Skin: Warm, dry with normal turgor. Normal color with no rashes, no lesions, and no evidence of cellulitis. MS/ Extremity: Pulses equal, no cyanosis. Neurovascular intact. Full, normal range of motion. Neuro: Awake and alert, GCS 15, oriented to person, place, time, and situation. Cranial nerves II-XII grossly intact. Motor strength 5/5 in all extremities. Sensory grossly intact. Cerebellar exam normal. Normal gait. Psych: Awake, alert, with orientation to person, place and time. Behavior, mood, and affect are within normal limits. 23:47 Abdomen/GI: Inspection: abdomen appears normal, Bowel sounds: normal, Palpation: moderate abdominal tenderness, in the right upper quadrant and left upper quadrant. Vital Signs: 22:44 BP 133 / 66; Pulse 66; Resp 16 S; Temp 98.2(O); Pulse Ox 98% on R/A; Weight 80.74 kg bb (R); Height 5 ft. 1 in. (154.94 cm) (R); Pain 8/10; 12/08 00:00 BP 115 / 70; Pulse 62; Resp 16; Pulse Ox 98% on R/A; rr5 12/07 22:44 Body Mass Index 33.63 (80.74 kg, 154.94 cm) bb MDM: 12/07 22:51 Patient medically screened. snw 23:49 Data reviewed: vital signs, nurses notes. Data interpreted: Pulse oximetry: on room air snw is 98 %. Interpretation: normal. Counseling: I had a detailed discussion with the patient and/or guardian regarding: the historical points, exam findings, and any diagnostic results supporting the discharge/admit diagnosis, lab results, radiology results, the need for outpatient follow up, to return to the emergency department if symptoms worsen or persist or if there are any questions or concerns that arise at home. Response to treatment: the patient's symptoms have mildly improved after treatment. Special discussion: Based on the patient's Hx, exam, and Dx evaluation, there is no indication for emergent surgery or inpatient Tx. It is understood by the patient/guardian that if the Sx's persist or worsen they need to return immediately for re-evaluation. Based on the history and exam findings, there is no indication for further emergent testing or inpatient evaluation. I discussed with the patient/guardian the need to see the primary care provider for further evaluation of the symptoms. 12/07 22:36 Order name: Urine Culture snw 12/07 22:36 Order name: Urine Microscopic Only snw 12/07 22:53 Order name: CBC with Diff w 12/07 22:53 Order name: Chem 7 snw 12/07 22:53 Order name: Lipase snw 12/07 22:53 Order name: LFT's snw 12/07 22:57 Order name: US Abdomen Limited w 12/07 23:15 Order name: CBC with Automated Diff; Complete Time: 23:33 EDMS 12/07 23:35 Order name: Urine Microscopic Only; Complete Time: 23:35 EDMS 12/07 23:35 Order name: Basic Metabolic Panel; Complete Time: 23:35 EDMS 12/07 23:35 Order name: Liver (Hepatic) Function; Complete Time: 23:35 EDMS 12/07 23:35 Order name: Lipase; Complete Time: 23:35 EDMS 12/07 22:36 Order name: Urine Test (obtain specimen); Complete Time: 22:50 snw 12/07 22:36 Order name: Urine Dipstick-Ancillary (obtain specimen); Complete Time: 22:50 snw Administered Medications: 23:10 Drug: NS 0.9% 1000 ml Route: IV; Rate: 1 bolus; Site: left antecubital; rr5 12/08 00:05 Follow up: Response: No adverse reaction; IV Status: Completed infusion; IV Intake: rr5 1000ml 12/07 23:15 Drug: fentaNYL (PF) 25 mcg {Note: rass 0.} Route: IVP; Site: left antecubital; rr5 12/08 00:05 Follow up: Response: No adverse reaction; Pain is decreased; RASS: Alert and Calm (0) rr5 12/07 23:43 Drug: Rocephin 1 grams Route: IV; Rate: calculated rate; Site: left antecubital; rr5 12/08 00:10 Follow up: Response: No adverse reaction; IV Status: Completed infusion; IV Intake: [id number] 00:01 Drug: Simethicone 240 mg Route: PO; rr5 00:10 Follow up: Response: No adverse reaction rr5 Disposition: 19:04 Co-signature as Attending Physician, Rober Manuel MD. ma2 Disposition: 12/07/19 23:41 Discharged to Home. Impression: Unspecified abdominal pain, Urinary tract infection, site not specified. - Condition is Stable. - Discharge Instructions: Abdominal Pain, Adult, Urinary Tract Infection, Adult, Rehydration, Adult. - Prescriptions for Pyridium 200 mg Oral Tablet - take 1 tablet by ORAL route every 8 hours for 3 days; 9 tablet. Macrobid 100 mg Oral Capsule - take 1 capsule by ORAL route every 12 hours for 10 days; 20 capsule. promethazine 25 mg Oral Tablet - take 1 tablet by ORAL route every 6 hours As needed; 20 tablet. - Work release form, Medication Reconciliation Form, Thank You Letter, Antibiotic Education, Prescription Opioid Use form. - Follow up: Emergency Department; When: As needed; Reason: Worsening of condition. Follow up: Private Physician; When: 1 - 2 days; Reason: Recheck today's complaints, Continuance of care, Re-evaluation by your physician. Signatures: Dispatcher [employer] EDUT Maria Eugenia Hummel, LUIZ-C PATIENT ADMITTING CLERK-Csnw Kathy Ritter, RN RN bb Rober Manuel MD MD ma2 Mynor Eisenberg RN RN rr5 Corrections: (The following items were deleted from the chart) 00:09 12/07 23:41 12/07/2019 23:41 Discharged to Home. Impression: Unspecified abdominal rr5 pain; Urinary tract infection, site not specified. Condition is Stable. Forms are Medication Reconciliation Form, Thank You Letter, Antibiotic Education, Prescription Opioid Use. Follow up: Emergency Department; When: As needed; Reason: Worsening of condition. Follow up: Private Physician; When: 1 - 2 days; Reason: Recheck today's complaints, Continuance of care, Re-evaluation by your physician. snw
--- NOTE | 2019-12-07 23:42 | ER ---
Nurse's Notes [facility] Name: Alex Walker Age: 34 yrs Sex: Female : 1985 Arrival Date: 12/07/2019 Time: 22:32 Bed 19 Private MD: VINNY HIDALGO Diagnosis: Unspecified abdominal pain;Urinary tract infection, site not specified Presentation: 12/07 22:43 Presenting complaint: Patient states: she has had LUQ pain x 4 days with nausea, denies bb vomiting, diarrhea, fever. Transition of care: patient was not received from another setting of care. Onset of symptoms was December 03, 2019. Risk Assessment: Do you want to hurt yourself or someone else? Patient reports no desire to harm self or others. Initial Sepsis Screen: Does the patient meet any 2 criteria? No. Patient's initial sepsis screen is negative. Does the patient have a suspected source of infection? No. Patient's initial sepsis screen is negative. Care prior to arrival: None. 22:43 Method Of Arrival: Ambulatory bb 22:43 Acuity: MARIA GUADALUPE 3 bb Triage Assessment: 22:45 General: Appears in no apparent distress. Behavior is calm, cooperative, appropriate rr5 for age. 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 - Coronavirus screen:: The patient has NOT traveled to [place] in the past 14 days. Proceed with normal triage process as indicated. - Social history:: Smoking status: Patient reports the use of cigarette tobacco products, smokes one-half pack cigarettes per day, Patient uses alcohol, but reports only rare drinking. Patient/guardian denies using street drugs. - Ebola Screening: : No symptoms or risks identified at this time. Screenin:10 Abuse screen: Denies threats or abuse. Denies injuries from another. Nutritional rr5 screening: No deficits noted. Tuberculosis screening: No symptoms or risk factors identified. Fall Risk IV access (20 points). Total Lozano Fall Scale indicates No Risk (0-24 pts). Assessment: 22:45 General: Appears in no apparent distress. uncomfortable, Behavior is calm, cooperative, rr5 appropriate for age. 22:45 Pain: Complains of pain in abdomen Pain does not radiate. Pain currently is 9 out of 10 rr5 on a pain scale. Quality of pain is described as aching, Pain began gradually, Is intermittent. Neuro: Level of Consciousness is awake, alert, obeys commands, Oriented to person, place, time, situation, Appropriate for age. Cardiovascular: Capillary refill < 3 seconds Patient's skin is warm and dry. Respiratory: Airway is patent Respiratory effort is even, unlabored, Respiratory pattern is regular, symmetrical. GI: Abdomen is round Bowel sounds present X 4 quads. Abd is soft and non tender Guarding noted in epigastric area and left upper quadrant Reports upper abdominal pain, nausea. : No signs and/or symptoms were reported regarding the genitourinary system. EENT: No signs and/or symptoms were reported regarding the EENT system. Derm: Skin is intact, is healthy with good turgor, Skin temperature is warm. Musculoskeletal: Circulation, motion, and sensation intact. Capillary refill < 3 seconds. 12/08 00:05 Reassessment: Patient appears in no apparent distress at this time. Patient is alert, rr5 oriented x 3, equal unlabored respirations, skin warm/dry/pink. discharge instruction given and explained without complaints made. Patient states feeling better. Patient states symptoms have improved. Vital Signs: 12/07 22:44 BP 133 / 66; Pulse 66; Resp 16 S; Temp 98.2(O); Pulse Ox 98% on R/A; Weight 80.74 kg bb (R); Height 5 ft. 1 in. (154.94 cm) (R); Pain 8/10; 12/08 00:00 BP 115 / 70; Pulse 62; Resp 16; Pulse Ox 98% on R/A; rr5 12/07 22:44 Body Mass Index 33.63 (80.74 kg, 154.94 cm) bb ED Course: 12/07 22:32 Patient arrived in ED. es 22:33 VINNY HIDALGO is Private Physician. es 22:36 Maria Eugenia Hummel [facility]-C [facility]. snw 22:36 Rober Manuel MD is Attending Physician. snw 22:37 Mynor Eisenberg, ANIRUDH is Primary Nurse. rr5 22:44 Triage completed. bb 22:44 Arm band placed on Patient placed in an exam room, on a stretcher, on pulse oximetry. bb 22:45 Patient has correct armband on for positive identification. Placed in gown. Bed in low rr5 position. Call light in reach. Pulse ox on. NIBP on. 23:00 Inserted saline lock: 20 gauge in left antecubital area, using aseptic technique. Blood rr5 collected. 23:11 Ultrasound completed. Patient tolerated well. Notified ED Physician . sg3 12/08 00:15 No provider procedures requiring assistance completed. IV discontinued, intact, rr5 bleeding controlled, No redness/swelling at site. Pressure dressing applied. 01:12 US Abdomen Limited In Process Unspecified. EDMS Administered Medications: 12/07 23:10 Drug: NS 0.9% 1000 ml Route: IV; Rate: 1 bolus; Site: left antecubital; rr5 12/08 00:05 Follow up: Response: No adverse reaction; IV Status: Completed infusion; IV Intake: rr5 1000ml 12/07 23:15 Drug: fentaNYL (PF) 25 mcg {Note: rass 0.} Route: IVP; Site: left antecubital; rr5 12/08 00:05 Follow up: Response: No adverse reaction; Pain is decreased; RASS: Alert and Calm (0) rr5 12/07 23:43 Drug: Rocephin 1 grams Route: IV; Rate: calculated rate; Site: left antecubital; rr5 12/08 00:10 Follow up: Response: No adverse reaction; IV Status: Completed infusion; IV Intake: [id number] 00:01 Drug: Simethicone 240 mg Route: PO; rr5 00:10 Follow up: Response: No adverse reaction rr5 Intake: 00:05 IV: 1000ml; Total: 1000ml. rr5 00:10 IV: 10ml; Total: 1010ml. rr5 Outcome: 12/07 23:41 Discharge ordered by . snw 12/08 00:05 Discharged to home ambulatory. rr5 Condition: stable Discharge instructions given to patient, Instructed on discharge instructions, the need for admit, medication usage, Demonstrated understanding of instructions, follow-up care, medications, Prescriptions given X 3. 00:09 Patient left the ED. rr5 Signatures: Dispatcher [employer] Maria Eugenia Richardson, HOME CARE PHYSICAL THERAPIST-C HOME CARE PHYSICAL THERAPIST-Rubensw Arminda Seay Brenda, RN RN Isabelle Pleitez [facility] Mynor Eisenberg RN RN rr5
[2019-12-07] MEDS ORDERED: CEFTRIAXONE/SWI 1gm 1 GM/10 ML SYR ONE (23:48)
[2019-12-07] MEDS ORDERED: SIMETHICONE 80 MG TAB ONE (23:57)
[2019-12-08 00:42] VITALS: BP 133/66; TEMP 98.2; O2SAT 98
--- NOTE | 2019-12-08 07:49 | RAD REPORT ---
EXAM DESCRIPTION: US - Abdomen Exam Limited - 12/07/2019 11:12 pm CLINICAL HISTORY: Abdominal pain. COMPARISON: None. FINDINGS: The gallbladder wall is not thickened. A gallstone is not seen. The biliary tree is normal caliber. IMPRESSION: Unremarkable gallbladder ultrasound.
== END 2019-12-08 00:09 | disposition home or self-care (01) ==
LOC: ER 22:29
DX: N39.0 Urinary tract infection, site not specified (principal); Z88.8 Allergy status to other drugs, medicaments and biological substances
CPT/HCPCS: 36415; 76705; 80048; 80076; 81015; 83690; 85025; 87086; 87088; 96361; 96365; 96375; 99284; J0696; J3010; J7030

== ENCOUNTER 2020-01-21 15:27 | Emergency (ER) | payer SELFPAY ==
--- OUTSIDE RECORDS SUMMARY | 2020-01-21 15:29 | XMS REPORT ---
:1985 [facility] Address [address] [place] [address] [place] [id number] Care Team Providers Name Role Phone Unavailable Unavailable Unavailable Problems This patient has no known problems. Allergies, Adverse Reactions, Alerts This patient has no known allergies or adverse reactions. Medications This patient has no known medications.
[2020-01-21 16:11] LABS: Urine Blood 3+ (NEG); Urine Glucose NEGATIVE (NEG); Urine Protein 2+ (NEG); Urine Specific Gravity 1.025 (1.005-1.030); Urine pH 8.5 (5.0-7.0)
[2020-01-21] MEDS ORDERED: ONDANSETRON 4 MG/2 ML VIAL ONE (16:12)
[2020-01-21] MEDS ORDERED: MORPHINE 4 MG/ML SYR ONE (16:12)
[2020-01-21 16:20] LABS: Absolute Lymphocytes (CBC) 1.3 K/uL (0.7-4.9); Basophils % 0.6 % (0-1.3); Hematocrit 37.9 % (36.0-45.0); Lymphocytes % 26.2 % (15.3-44.8); MPV 7.3 fL (7.6-11.3); RBC Red Blood Cell Count 4.35 M/uL (3.86-4.86)
[2020-01-21 16:38] LABS: ALT/SGPT 14 U/L (12-78); AST/SGOT 11 U/L (15-37); Albumin 3.6 g/dL (3.4-5.0); Alkaline Phosphatase 55 U/L (45-117); BUN Blood Urea Nitrogen 14 mg/dL (7-18); Bicarbonate 26 mmol/L (21-32); Bilirubin Direct 0.1 mg/dL (0-0.2); Bilirubin Total 0.4 mg/dL (0.2-1.0); Glucose Level 96 mg/dL (74-106); Lipase 38 U/L (73-393); Potassium 3.9 mmol/L (3.5-5.1); Protein, Total 7.4 g/dL (6.4-8.2); Sodium Level 142 mmol/L (136-145)
[2020-01-21 16:58] LABS: Urine Bacteria >50 /HPF (<20); Urine Culture Reflex Order REFLEXED; Urine RBC 20-50 /HPF (NONE SEEN)
--- NOTE | 2020-01-21 17:26 | RAD REPORT ---
EXAM DESCRIPTION: CT - Abdomen Pelvis W Contrast - 01/21/2020 4:54 pm CLINICAL HISTORY: Abdominal pain COMPARISON: 2018 TECHNIQUE: Computed axial tomography of the abdomen pelvis was obtained. 100 cc Isovue-300 was admin istered intravenously. Oral contrast was not requested which limits evaluation of bowel. All CT scans are performed using dose optimization technique as appropriate and may include automated exposure control or mA/KV adjustment according to patient size. FINDINGS: The liver, spleen, pancreas, adrenal and kidneys appear unremarkable. There is no evidence of diverticulitis. Normal appendix Tubal ligation clips are present IMPRESSION: No acute abnormality is displayed.
--- NOTE | 2020-01-21 17:31 | EDPHYS ---
Physician Documentation [facility] Name: Alex Walker Age: 34 yrs Sex: Female : 1985 Arrival Date: 01/21/2020 Time: 15:29 Bed 14 Private MD: ED Physician Ishmael Hobbs HPI: 01/20 16:05 This 34 yrs old Female presents to ER via Ambulatory with complaints of jr8 Abdominal Pain - radiating to back, Abdominal Distention. 16:05 The patient presents with abdominal pain in the left upper quadrant, in the left lower jr8 quadrant. Onset: The symptoms/episode began/occurred gradually, 2 week(s) ago, and became worse. The symptoms radiate to left back. Associated signs and symptoms: Pertinent positives: nausea. The symptoms are described as stabbing. Modifying factors: The symptoms are alleviated by nothing, the symptoms are aggravated by nothing. Severity of pain: At its worst the pain was moderate in the emergency department the pain is unchanged. The patient has not experienced similar symptoms in the past. The patient has not recently seen a physician. 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 - Social history:: Smoking status: Patient denies any tobacco usage or history of. ROS: 16:05 Eyes: Negative for injury, pain, redness, and discharge, ENT: Negative for injury, jr8 pain, and discharge, Neck: Negative for injury, pain, and swelling, Cardiovascular: Negative for chest pain, palpitations, and edema, Respiratory: Negative for shortness of breath, cough, wheezing, and pleuritic chest pain, MS/Extremity: Negative for injury and deformity, Skin: Negative for injury, rash, and discoloration, Neuro: Negative for headache, weakness, numbness, tingling, and seizure. 16:05 Abdomen/GI: Positive for abdominal pain, nausea, Negative for vomiting, diarrhea, constipation, abdominal cramps, abdominal distension. 16:05 Back: Positive for flank pain, on the left, Negative for pain with movement, radiated pain. Exam: 16:05 Eyes: Pupils equal round and reactive to light, extra-ocular motions intact. Lids and jr8 lashes normal. Conjunctiva and sclera are non-icteric and not injected. Cornea within normal limits. Periorbital areas with no swelling, redness, or edema. ENT: Nares patent. No nasal discharge, no septal abnormalities noted. Tympanic membranes are normal and external auditory canals are clear. Oropharynx with no redness, swelling, or masses, exudates, or evidence of obstruction, uvula midline. Mucous membranes moist. Neck: Trachea midline, no thyromegaly or masses palpated, and no cervical lymphadenopathy. Supple, full range of motion without nuchal rigidity, or vertebral point tenderness. No Meningismus. Cardiovascular: Regular rate and rhythm with a normal S1 and S2. No gallops, murmurs, or rubs. Normal PMI, no JVD. No pulse deficits. Respiratory: Lungs have equal breath sounds bilaterally, clear to auscultation and percussion. No rales, rhonchi or wheezes noted. No increased work of breathing, no retractions or nasal flaring. Skin: Warm, dry with normal turgor. Normal color with no rashes, no lesions, and no evidence of cellulitis. MS/ Extremity: Pulses equal, no cyanosis. Neurovascular intact. Full, normal range of motion. Neuro: Awake and alert, GCS 15, oriented to person, place, time, and situation. Cranial nerves II-XII grossly intact. Motor strength 5/5 in all extremities. Sensory grossly intact. Cerebellar exam normal. Normal gait. 16:05 Abdomen/GI: Inspection: obese Bowel sounds: active, all quadrants, Palpation: soft, in all quadrants, moderate abdominal tenderness, in the left upper quadrant and left lower quadrant, mass, is not appreciated, rebound tenderness, is not appreciated, voluntary guarding, is not appreciated, involuntary guarding, is not appreciated, no appreciated organomegaly, Indicators: McBurney's point is not tender, Teixeira's sign is negative, Rovsing's sign is negative, Obturator sign is negative, Psoas sign is negative, Liver: tenderness, is not appreciated. 16:05 Back: pain, is absent, ROM is normal, normal spinal alignment noted, CVA tenderness, that is mild, is noted on the left. Vital Signs: 15:34 BP 128 / 70; Pulse 71; Resp 18 S; Temp 98.0(TE); Pulse Ox 99% on R/A; Weight 77.56 kg aa5 (R); Height 5 ft. 1 in. (154.94 cm) (R); Pain 7/10; 16:51 BP 107 / 66; Pulse 67; Resp 18; Pulse Ox 99% on R/A; ph 18:00 BP 112 / 70; Pulse 69; Resp 18; Temp 97.9; Pulse Ox 99% on R/A; ph 15:34 Body Mass Index 32.31 (77.56 kg, 154.94 cm) aa5 MDM: 15:39 Patient medically screened. jr8 17:29 Data reviewed: vital signs, nurses notes, lab test result(s), radiologic studies, CT jr8 scan. Data interpreted: Pulse oximetry: on room air is 99 %. Interpretation: normal. Counseling: I had a detailed discussion with the patient and/or guardian regarding: the historical points, exam findings, and any diagnostic results supporting the discharge/admit diagnosis, lab results, radiology results, the need for outpatient follow up, a family practitioner, to return to the emergency department if symptoms worsen or persist or if there are any questions or concerns that arise at home. Response to treatment: the patient's symptoms have mildly improved after treatment. Special discussion: Based on the patient's Hx, exam, and Dx evaluation, there is no indication for emergent surgery or inpatient Tx. It is understood by the patient/guardian that if the Sx's persist or worsen they need to return immediately for re-evaluation. 01/20 15:39 Order name: Basic Metabolic Panel; Complete Time: 16:39 01/20 15:39 Order name: CBC with Diff; Complete Time: 16:39 01/20 15:39 Order name: Creatinine for Radiology; Complete Time: 16:46 01/20 15:39 Order name: Hepatic Function; Complete Time: 16:39 01/20 15:39 Order name: Lipase; Complete Time: 16:39 01/20 15:39 Order name: Urine Microscopic Only; Complete Time: 17:10 01/20 15:39 Order name: IV Saline Lock; Complete Time: 15:52 01 16:03 Order name: Urine Dipstick--Ancillary (enter results); Complete Time: 16:17 01/20 16:03 Order name: Urine --Ancillary (enter results); Complete Time: 16:17 01/20 16:39 Order name: CT Abd/Pelvis - IV Contrast Only; Complete Time: 17:29 8 01/20 17:02 Order name: Urine Culture [facility] 01/20 15:39 Order name: Labs collected and sent; Complete Time: 15:52 8 01/20 15:39 Order name: Urine Test (obtain specimen); Complete Time: 16:08 8 01/20 15:39 Order name: Urine Dipstick-Ancillary (obtain specimen); Complete Time: 16:08 Administered Medications: 16:08 Drug: Zofran (Ondansetron) 4 mg Route: IVP; Site: left antecubital; ph 18:03 Follow up: Response: No adverse reaction ph 16:10 Drug: morphine 4 mg Route: IVP; Site: left antecubital; ph 16:30 Follow up: Response: No adverse reaction; Pain is decreased; RASS: Alert and Calm (0) ph 17:55 Drug: Rocephin 1 grams Route: IV; Rate: calculated rate; Site: left antecubital; ph 18:04 Follow up: Response: No adverse reaction; IV Status: Completed infusion ph Disposition: 18:18 Co-signature as Attending Physician, Ishmael Hobbs DO I agree with the assessment and ms3 plan of care. Disposition: 01/21/20 17:30 Discharged to Home. Impression: Acute cystitis, Abdominal and pelvic pain. - Condition is Stable. - Discharge Instructions: Abdominal Pain, Adult, Urinary Tract Infection, Adult. - Prescriptions for Pyridium 200 mg Oral Tablet - take 1 tablet by ORAL route every 8 hours for 3 days; 9 tablet. Macrobid 100 mg Oral Capsule - take 1 capsule by ORAL route every 12 hours for 7 days; 14 capsule. - Medication Reconciliation Form, Thank You Letter, Antibiotic Education, Prescription Opioid Use form. - Follow up: Private Physician; When: 2 - 3 days; Reason: Recheck today's complaints, Continuance of care, Re-evaluation by your physician. - Problem is new. - Symptoms have improved. Signatures: Dispatcher [employer] [facility] Nargis Linda RN RN aa5 Fausto Vivas PA PA jr8 Nela White RN RN Ishmael Hobbs DO DO ms3 Corrections: (The following items were deleted from the chart) 18:05 17:30 01/21/2020 17:30 Discharged to Home. Impression: Acute cystitis; Abdominal and ph pelvic pain. Condition is Stable. Forms are Medication Reconciliation Form, Thank You Letter, Antibiotic Education, Prescription Opioid Use. Follow up: Private Physician; When: 2 - 3 days; Reason: Recheck today's complaints, Continuance of care, Re-evaluation by your physician. Problem is new. Symptoms have improved. jr8
--- NOTE | 2020-01-21 17:31 | ER ---
Nurse's Notes [facility] Name: Alex Walker Age: 34 yrs Sex: Female : 1985 Arrival Date: 01/21/2020 Time: 15:29 Bed 14 Private MD: Diagnosis: Acute cystitis;Abdominal and pelvic pain Presentation: 01/20 15:32 Chief complaint: Patient states: right and left low back pain radiating to LLQ and RLQ aa5 that began x 1-2 weeks ago. Pt reports nausea. Denies vomiting and diarrhea. Reports feeling bloated. Coronavirus screen: Patient denies fever greater than 100.4F, cough, shortness of breath, or difficulty breathing. Ebola Screen: Patient negative for fever greater than or equal to 101.5 degrees Fahrenheit, and additional compatible Ebola Virus Disease symptoms. Initial Sepsis Screen: Does the patient meet any 2 criteria? No. Patient's initial sepsis screen is negative. Does the patient have a suspected source of infection? No. Patient's initial sepsis screen is negative. Risk Assessment: Do you want to hurt yourself or someone else? Patient reports no desire to harm self or others. 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 - Social history:: Smoking status: Patient denies any tobacco usage or history of. Screenin:54 Abuse screen: Denies threats or abuse. Denies injuries from another. Nutritional ph screening: No deficits noted. Tuberculosis screening: No symptoms or risk factors identified. Fall Risk None identified. Assessment: 15:52 General: Appears in no apparent distress. uncomfortable, Behavior is calm, cooperative, ph appropriate for age. Pain: Complains of pain in right mid back and right low back Pain radiates to left upper quadrant and left lower quadrant. Neuro: Level of Consciousness is awake, alert, obeys commands, Oriented to person, place, time, situation. Cardiovascular: Capillary refill < 3 seconds in bilateral fingers Patient's skin is warm and dry. Respiratory: Airway is patent Respiratory effort is even, unlabored, Respiratory pattern is regular, symmetrical. GI: Bowel sounds present X 4 quads. Abd is soft and non tender X 4 quads. Reports lower abdominal pain, upper abdominal pain, diarrhea, nausea, vomiting. Derm: Skin is intact, is healthy with good turgor, Skin is pink, warm \T\ dry. Musculoskeletal: Circulation, motion, and sensation intact. Range of motion: intact in all extremities. 17:00 Reassessment: Patient appears in no apparent distress at this time. Patient and/or ph family updated on plan of care and expected duration. Pain level reassessed. Patient is alert, oriented x 3, equal unlabored respirations, skin warm/dry/pink. Vital Signs: 15:34 BP 128 / 70; Pulse 71; Resp 18 S; Temp 98.0(TE); Pulse Ox 99% on R/A; Weight 77.56 kg aa5 (R); Height 5 ft. 1 in. (154.94 cm) (R); Pain 7/10; 16:51 BP 107 / 66; Pulse 67; Resp 18; Pulse Ox 99% on R/A; ph 18:00 BP 112 / 70; Pulse 69; Resp 18; Temp 97.9; Pulse Ox 99% on R/A; ph 15:34 Body Mass Index 32.31 (77.56 kg, 154.94 cm) aa5 ED Course: 15:29 Patient arrived in ED. am2 15:33 Triage completed. aa5 15:33 Arm band placed on. aa5 15:38 Fausto Vivas PA is PHCP. jr8 15:39 Ishmael Hobbs DO is Attending Physician. jr8 15:51 Nela White, RN is Primary Nurse. ph 15:54 Patient has correct armband on for positive identification. Bed in low position. Call ph light in reach. Side rails up X 1. Pulse ox on. NIBP on. Door closed. Noise minimized. Warm blanket given. 16:02 Initial lab(s) drawn, by me, sent to lab. Urine collected: clean catch specimen, ag2 cloudy, blood tinged. Inserted saline lock: 20 gauge in right antecubital area, using aseptic technique. Blood collected. 16:06 Basic Metabolic Panel Sent. ag2 16:06 CBC with Diff Sent. ag2 16:06 Creatinine for Radiology Sent. ag2 16:06 Hepatic Function Sent. ag2 16:06 Lipase Sent. ag2 16:55 CT Abd/Pelvis - IV Contrast Only In Process Unspecified. EDMS 18:00 No provider procedures requiring assistance completed. IV discontinued, intact, ph bleeding controlled, No redness/swelling at site. Pressure dressing applied. Administered Medications: 16:08 Drug: Zofran (Ondansetron) 4 mg Route: IVP; Site: left antecubital; ph 18:03 Follow up: Response: No adverse reaction ph 16:10 Drug: morphine 4 mg Route: IVP; Site: left antecubital; ph 16:30 Follow up: Response: No adverse reaction; Pain is decreased; RASS: Alert and Calm (0) ph 17:55 Drug: Rocephin 1 grams Route: IV; Rate: calculated rate; Site: left antecubital; ph 18:04 Follow up: Response: No adverse reaction; IV Status: Completed infusion ph Outcome: 17:30 Discharge ordered by MD. mcintosh 18:05 Patient left the ED. ph 18:05 Discharged to home ambulatory. ph 18:05 Condition: good 18:05 Discharge instructions given to patient, Instructed on discharge instructions, follow up and referral plans. medication usage, Demonstrated understanding of instructions, follow-up care, medications, Prescriptions given X 2. Addendum: 01/24/2020 07:30 Addendum: Culture Results: Positive urine culture. No further action required. Bacteria e b sensitive to prescribed antibiotic. Signatures: Dispatcher [employer] [facility] Nargis Linda, RN RN aa5 Fausto iVvas PA PA jr8 Nela White RN RN ph Vanessa Ibarra [employer] ag2 Irina Tobin
[2020-01-21] MEDS ORDERED: CEFTRIAXONE/SWI 1gm 1 GM/10 ML SYR ONE (17:44)
[2020-01-21 18:17] VITALS: TEMP 98; O2SAT 99
[2020-01-21 18:18] VITALS: BP 107/66
== END 2020-01-21 18:05 | disposition home or self-care (01) ==
LOC: ER 15:27
DX: N30.00 Acute cystitis without hematuria (principal); Z88.5 Allergy status to narcotic agent; Z88.6 Allergy status to analgesic agent
CPT/HCPCS: 36415; 74177; 80048; 80076; 81003; 81015; 81025; 83690; 85025; 87077; 87086; 87088; 87186; 96374; 96375; 99284; J0696; J2405; Q9967

== ENCOUNTER 2020-03-04 16:57 | Emergency (ER) | payer SELFPAY ==
--- OUTSIDE RECORDS SUMMARY | 2020-03-04 16:59 | XMS REPORT ---
:1985 Author Organization [facility] t Address [address] [place] [address] Dr. [place]ley [address] [place] [id number] Care Team Providers Name Role Phone Unavailable Unavailable Unavailable Problems This patient has no known problems. Allergies, Adverse Reactions, Alerts This patient has no known allergies or adverse reactions. Medications This patient has no known medications. Procedures This patient has no known procedures. Results This patient has no known results.
[2020-03-04] MEDS ORDERED: ACETAMINOPHEN 500 MG TAB ONE (18:23)
[2020-03-04 18:55] LABS: Urine Blood TRACE (NEG); Urine Glucose NEGATIVE (NEG); Urine Protein NEGATIVE (NEG); Urine Specific Gravity 1.025 (1.005-1.030)
--- NOTE | 2020-03-04 19:40 | RAD REPORT ---
EXAM DESCRIPTION: USExtrem Venous W Compress Bil03/04/2020 7:28 pm CLINICAL HISTORY: Bilateral leg swelling COMPARISON: October 2019 FINDINGS: The common femoral, superficial femoral, popliteal and posterior tibial veins bilaterally are compressible and demonstrate augmentation. Doppler demonstrates good flow. IMPRESSION: No evidence of deep venous thrombosis involving either lower extremity.
--- NOTE | 2020-03-04 19:49 | EDPHYS ---
Physician Documentation [facility] Name: Alex Walker Age: 34 yrs Sex: Female : 1985 Arrival Date: 03/04/2020 Time: 17:01 Bed 19 Private MD: ED Physician Deondre Melchor HPI: 03/04 18:10 This 34 yrs old Female presents to ER via Ambulatory with complaints of Leg cp Pain. 18:10 The patient presents with pain, that is acute, swelling, tenderness. cp 18:10 The complaints affect the left calf, right calf. cp 18:10 Onset: The symptoms/episode began/occurred 3 day(s) ago. cp 18:10 Associated signs and symptoms: Pertinent positives: calf tenderness, Pertinent cp negatives numbness, rash, warmth, weakness. Treatment prior to arrival includes: no previous treatment. 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 - Social history:: Smoking status: Patient reports the use of cigarette tobacco products, smokes one-half pack cigarettes per day, Patient/guardian denies using alcohol, street drugs. ROS: 18:15 Constitutional: Negative for fever. cp 18:15 Respiratory: Negative for shortness of breath. 18:15 MS/extremity: Positive for pain, swelling, tenderness, of the left lower leg and right lower leg, Negative for injury or acute deformity, paresthesias. 18:15 Skin: Negative for rash. 18:15 All other systems are negative. Exam: 18:20 Constitutional: The patient appears in no acute distress, alert, awake, well developed, cp well nourished. 18:20 Head/Face: Normocephalic, atraumatic. cp 18:20 Chest/axilla: Inspection: normal. 18:20 Cardiovascular: Rate: normal, Edema: is not appreciated, JVD: is not appreciated. 18:20 Respiratory: the patient does not display signs of respiratory distress, Respirations: normal, no use of accessory muscles, no retractions, labored breathing, is not present, Breath sounds: are clear throughout. 18:20 Musculoskeletal/extremity: Extremities: grossly normal except: noted in the left lower leg and right lower leg: pain, tenderness, Pulses: noted to be 2+ in the right dorsalis pedis artery and left dorsalis pedis artery, Sensation intact. 18:20 Skin: cellulitis, is not appreciated, no rash present. Vital Signs: 17:06 BP 135 / 82; Pulse 69; Resp 17; Temp 98.4; Pulse Ox 98% ; Weight 80.74 kg; Height 5 ft. ll1 1 in. (154.94 cm); Pain 8/10; 17:06 Body Mass Index 33.63 (80.74 kg, 154.94 cm) ll1 MDM: 17:47 Patient medically screened. jordyn 18:20 Differential diagnosis: strain, DVT, cellulitis. cp 19:47 Data reviewed: vital signs, nurses notes, radiologic studies, ultrasound, and as a cp result, I will discharge patient. 19:47 Counseling: I had a detailed discussion with the patient and/or guardian regarding: the cp historical points, exam findings, and any diagnostic results supporting the discharge/admit diagnosis, radiology results, to return to the emergency department if symptoms worsen or persist or if there are any questions or concerns that arise at home. Response to treatment: the patient's symptoms have mildly improved after treatment. 03/04 18:36 Order name: Urine Dipstick--Ancillary (enter results); Complete Time: 18:58 bd 03/04 18:58 Interpretation: Normal except: UBLD TRACE; UESTR TRACE. cp 03/04 18:36 Order name: Urine --Ancillary (enter results); Complete Time: 18:58 bd 03/04 18:03 Order name: Urine Dipstick-Ancillary (obtain specimen); Complete Time: 18:58 cp 03/04 18:03 Order name: Urine Test (obtain specimen); Complete Time: 18:58 cp 03/04 18:03 Order name: US Extremity Venous W Compression [place]; Complete Time: 19:45 cp 03/04 19:46 Interpretation: Report reviewed. cp Administered Medications: 18:40 Drug: Tylenol 1000 mg Route: PO; vc 20:06 Follow up: Response: No adverse reaction vc Disposition: 20:15 Chart complete. cp Disposition: 03/04/20 19:48 Discharged to Home. Impression: Pain in left lower leg, Pain in right lower leg. - Condition is Stable. - Prescriptions for Ibuprofen 800 mg Oral Tablet - take 1 tablet by ORAL route every 8 hours As needed take with food; 30 tablet. Cyclobenzaprine 10 mg Oral Tablet - take 1 tablet by ORAL route every 8 hours As needed no driving while taking medication; 15 tablet. - Medication Reconciliation Form, Thank You Letter, Antibiotic Education, Prescription Opioid Use, Work release form form. - Follow up: Private Physician; When: 2 - 3 days; Reason: Worsening of condition. - Problem is new. - Symptoms have improved. Addendum: 03/06/2020 09:09 Co-signature as Attending Physician, Deondre Melchor MD I agree with the assessment and c smart plan of care. Signatures: Dispatcher [employer] EDDeondre Jaeger MD MD cha Page, Corey, PA PA cp Aurelia Rhodes RN RN vc Lewis, Lynsay, RN RN ll1 Corrections: (The following items were deleted from the chart) 03/04 20:06 19:48 03/04/2020 19:48 Discharged to Home. Impression: Pain in left lower leg; Pain in vc right lower leg. Condition is Stable. Forms are Medication Reconciliation Form, Thank You Letter, Antibiotic Education, Prescription Opioid Use. Follow up: Private Physician; When: 2 - 3 days; Reason: Worsening of condition. Problem is new. Symptoms have improved. cp
--- NOTE | 2020-03-04 19:49 | ER ---
Nurse's Notes [facility] Name: Alex Walker Age: 34 yrs Sex: Female : 1985 Arrival Date: 03/04/2020 Time: 17:01 Bed 19 Private MD: Diagnosis: Pain in left lower leg;Pain in right lower leg Presentation: 03/04 17:06 Chief complaint: Patient states: Bilateral leg pain for 3 days, worse in left leg. ll1 Drove a lot Sunday, pain started afterwards. Sleepy and falling asleep easily today. Coronavirus screen: Proceed with normal triage. Patient denies a cough. Patient denies shortness of breath or difficulty breathing. Patient denies measured and/or subjective temperature greater than 100.4F prior to today's visit. Patient denies travel on a cruise ship or to a country the [facility] currently lists as an affected area. Patient denies contact with known and/or suspected case of COVID-19. Ebola Screen: Patient denies travel to an Ebola-affected area in the 21 days before illness onset. Initial Sepsis Screen: Does the patient meet any 2 criteria? No. Patient's initial sepsis screen is negative. Does the patient have a suspected source of infection? No. Patient's initial sepsis screen is negative. Risk Assessment: Do you want to hurt yourself or someone else? Patient reports no desire to harm self or others. Onset of symptoms was March 01, 2020. 17:06 Method Of Arrival: Ambulatory ll1 17:06 Acuity: MARIA GUADALUPE 3 ll1 Triage Assessment: 18:08 General: Appears in no apparent distress. Behavior is calm, cooperative, appropriate vc for age. Pain: Complains of pain in right leg and left leg Pain currently is 8 out of 10 on a pain scale. at worst was 10 out of 10 on a pain scale. Quality of pain is described as sharp, squeezing, Pain began 2-3 days ago. Is continuous, Alleviated by rest, Aggravated by increased activity, repositioning, weight bearing, Noted to be grimacing. 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 - Social history:: Smoking status: Patient reports the use of cigarette tobacco products, smokes one-half pack cigarettes per day, Patient/guardian denies using alcohol, street drugs. Screenin:08 Abuse screen: Denies threats or abuse. Nutritional screening: No deficits noted. vc Tuberculosis screening: No symptoms or risk factors identified. Fall Risk None identified. Assessment: 18:00 General: Appears in no apparent distress. uncomfortable, Behavior is calm, cooperative, vc appropriate for age. Pain: Complains of pain in left leg and right leg Pain does not radiate. Pain. Neuro: Level of Consciousness is awake, alert, obeys commands, Oriented to person, place, time. Cardiovascular: Capillary refill < 3 seconds Patient's skin is warm and dry. Respiratory: Airway is patent. GI: Abdomen is round non-distended. : No signs and/or symptoms were reported regarding the genitourinary system. EENT: No signs and/or symptoms were reported regarding the EENT system. Derm: Skin temperature is warm. Musculoskeletal: Circulation, motion, and sensation intact. Range of motion:. 19:00 Reassessment: Patient appears in no apparent distress at this time. Patient and/or vc family updated on plan of care and expected duration. Pain level reassessed. Patient is alert, oriented x 3, equal unlabored respirations, skin warm/dry/pink. Vital Signs: 17:06 BP 135 / 82; Pulse 69; Resp 17; Temp 98.4; Pulse Ox 98% ; Weight 80.74 kg; Height 5 ft. ll1 1 in. (154.94 cm); Pain 8/10; 17:06 Body Mass Index 33.63 (80.74 kg, 154.94 cm) ll1 ED Course: 17:01 Patient arrived in ED. mr 17:08 Triage completed. ll1 17:09 Arm band placed on Patient placed in an exam room, on a stretcher. ll1 17:47 Deondre Hancock PA is PHCP. cp 17:47 Deondre Melchor MD is Attending Physician. cp 17:56 Aurelia Rhodes RN is Primary Nurse. vc 18:11 Patient has correct armband on for positive identification. Bed in low position. Pulse vc ox on. NIBP on. 19:28 US Extremity Venous W Compression [place] In Process Unspecified. EDMS 20:05 No provider procedures requiring assistance completed. Patient did not have IV access vc during this emergency room visit. Administered Medications: 18:40 Drug: Tylenol 1000 mg Route: PO; vc 20:06 Follow up: Response: No adverse reaction vc Outcome: 19:48 Discharge ordered by . cp 20:05 Discharged to home ambulatory. vc 20:05 Condition: good 20:05 Discharge instructions given to patient, Instructed on discharge instructions, follow up and referral plans. medication usage, Demonstrated understanding of instructions, follow-up care, medications, Prescriptions given X 2. 20:06 Patient left the ED. vc Signatures: Dispatcher [employer] EDWV Karla Aldridge Corey, Aurelia Valdez cp, RN RN vc Ney Douglas RN RN ll1
[2020-03-04 20:20] VITALS: BP 135/82; TEMP 98.4; O2SAT 98
== END 2020-03-04 20:06 | disposition home or self-care (01) ==
LOC: ER 16:57
DX: M79.662 Pain in left lower leg (principal); M79.661 Pain in right lower leg; F17.210 Nicotine dependence, cigarettes, uncomplicated; Z88.5 Allergy status to narcotic agent; Z88.6 Allergy status to analgesic agent
CPT/HCPCS: 81003; 81025; 93970; 99284

== ENCOUNTER 2020-03-26 00:29 | Emergency (ER) | payer SELFPAY ==
--- OUTSIDE RECORDS SUMMARY | 2020-03-26 00:32 | XMS REPORT | Continuity of Care Document ---
:1985 Author Organization [facility] t Address [address] [place] [address] Dr. Holley [address] [place] [id number] Care Team Providers Name Role Phone Unavailable Unavailable Unavailable Problems This patient has no known problems. Allergies, Adverse Reactions, Alerts This patient has no known allergies or adverse reactions. Medications This patient has no known medications. Procedures This patient has no known procedures. Results This patient has no known results.
[2020-03-26] MEDS ORDERED: NA CHLORIDE 0.9% 1,000 ML ONE (00:51)
[2020-03-26] MEDS ORDERED: ONDANSETRON 4 MG/2 ML VIAL ONE (00:51)
[2020-03-26] MEDS ORDERED: MORPHINE 4 MG/ML SYR ONE (00:51)
[2020-03-26 01:21] LABS: Absolute Lymphocytes (CBC) 2.5 K/uL (0.7-4.9); Basophils % 0.3 % (0-1.3); Hematocrit 43.4 % (36.0-45.0); Lymphocytes % 14.3 % (15.3-44.8); MPV 7.5 fL (7.6-11.3); RBC Red Blood Cell Count 4.98 M/uL (3.86-4.86)
[2020-03-26 01:23] LABS: Urine Blood TRACE (NEG); Urine Glucose NEGATIVE (NEG); Urine Protein NEGATIVE (NEG); Urine Specific Gravity 1.025 (1.005-1.030)
[2020-03-26 01:29] LABS: Albumin 4.1 g/dL (3.4-5.0); Bilirubin Direct 0.1 mg/dL (0-0.2); Bilirubin Total 0.3 mg/dL (0.2-1.0); Potassium 3.8 mmol/L (3.5-5.1); Protein, Total 8.2 g/dL (6.4-8.2)
[2020-03-26] MEDS ORDERED: FENTANYL CITR 100 MCG/2 ML ONE (01:50)
[2020-03-26] MEDS ORDERED: MEPERIDINE HCL 50 MG/ML ONE (02:23)
--- NOTE | 2020-03-26 03:24 | EDPHYS ---
Physician Documentation [facility] Name: Alex Walker Age: 34 yrs Sex: Female : 1985 Arrival Date: 03/26/2020 Time: 00:34 Bed 2 Private MD: ED Physician Alphonso Mitchell HPI: 03/26 01:29 This 34 yrs old Female presents to ER via EMS with complaints of Abdominal pkl Cramping. 01:29 The patient presents with abdominal pain in the left lower quadrant. Onset: The pkl symptoms/episode began/occurred just prior to arrival, 1 hour(s) ago. The symptoms do not radiate. Associated signs and symptoms: none. 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 - Social history:: Smoking status: Patient reports the use of cigarette tobacco products, smokes one-half pack cigarettes per day, Patient uses alcohol, occasionally. Patient/guardian denies using street drugs. ROS: 01:29 Eyes: Negative for injury, pain, redness, and discharge, ENT: Negative for injury, pkl pain, and discharge, Neck: Negative for injury, pain, and swelling, Cardiovascular: Negative for chest pain, palpitations, and edema, Respiratory: Negative for shortness of breath, cough, wheezing, and pleuritic chest pain. 01:29 Abdomen/GI: Positive for abdominal pain, of the left lower quadrant. 01:29 Back: Negative for acute changes. 01:29 : Negative for urinary symptoms. 01:29 MS/extremity: Negative for acute changes. 01:29 Skin: Negative for rash. 01:29 Neuro: Negative for altered mental status. Exam: 01:29 Head/Face: Normocephalic, atraumatic. Eyes: Pupils equal round and reactive to light, pkl extra-ocular motions intact. Lids and lashes normal. Conjunctiva and sclera are non-icteric and not injected. Cornea within normal limits. Periorbital areas with no swelling, redness, or edema. ENT: Nares patent. No nasal discharge, no septal abnormalities noted. Tympanic membranes are normal and external auditory canals are clear. Oropharynx with no redness, swelling, or masses, exudates, or evidence of obstruction, uvula midline. Mucous membranes moist. Neck: Trachea midline, no thyromegaly or masses palpated, and no cervical lymphadenopathy. Supple, full range of motion without nuchal rigidity, or vertebral point tenderness. No Meningismus. Chest/axilla: Normal chest wall appearance and motion. Nontender with no deformity. No lesions are appreciated. Cardiovascular: Regular rate and rhythm with a normal S1 and S2. No gallops, murmurs, or rubs. Normal PMI, no JVD. No pulse deficits. Respiratory: Lungs have equal breath sounds bilaterally, clear to auscultation and percussion. No rales, rhonchi or wheezes noted. No increased work of breathing, no retractions or nasal flaring. 01:29 Abdomen/GI: Bowel sounds: normal, Palpation: soft, mild abdominal tenderness, in the left lower quadrant. 01:29 Back: Exam negative for acute changes. 01:29 : Exam negative for acute changes. 01:29 Musculoskeletal/extremity: Exam is negative for acute changes. 01:29 Skin: Exam negative for rash. 01:29 Neuro: Orientation: is normal, Mentation: is normal, Cranial nerves: grossly normal, Motor: is normal. Vital Signs: 00:23 BP 116 / 72; Pulse 83; Resp 22; Temp 98.2(O); Pulse Ox 100% on R/A; Weight 81.19 kg fc (R); Height 5 ft. 1 in. (154.94 cm) (R); Pain 10/10; 01:46 BP 121 / 81; Pulse 72; Resp 17 S; Pulse Ox 99% on R/A; jd3 03:16 BP 108 / 57; Pulse 69; Resp 17 S; Pulse Ox 98% on R/A; jd3 00:23 Body Mass Index 33.82 (81.19 kg, 154.94 cm) MDM: 00:35 Patient medically screened. pkl 03:19 Data reviewed: vital signs, nurses notes, lab test result(s), radiologic studies, CT pkl scan. ED course: Patient feeling better. Discussed lab. and CT Scan results with patient. Advised to follow up with PCP in 2 to 3 days. To return if necessary. Patient understood instructions. 03/26 00:51 Order name: Urine --Ancillary (enter results); Complete Time: 01:32 ds4 03/26 00:51 Order name: Urine Dipstick--Ancillary (enter results); Complete Time: :32 ds4 03/26 01:07 Order name: Basic Metabolic Panel; Complete Time: :32 EDMS 03/26 01:07 Order name: Liver (Hepatic) Function; Complete Time: : EDMS 03/26 01:08 Order name: Lipase; Complete Time: : EDMS 03/26 01:08 Order name: CBC with Automated Diff; Complete Time: : EDMS 03/26 01:08 Order name: Type and Screen; Complete Time: 02:11 EDMS 03/26 01:34 Order name: CT Abd/Pelvis - IV Contrast Only pkl 03/26 00:50 Order name: IV Saline Lock; Complete Time: 00:50 jd3 03/26 00:50 Order name: Labs collected and sent; Complete Time: 01:01 jd3 03/26 00:50 Order name: Urine Dipstick-Ancillary (obtain specimen); Complete Time: 00:51 jd3 03/26 00:50 Order name: Urine Test (obtain specimen); Complete Time: 00:51 jd3 Administered Medications: 00:49 Drug: morphine 4 mg Route: IVP; Site: right antecubital; jd3 01:45 Follow up: Response: No adverse reaction; RASS: Restless (+1); fallow-up done at 0145 jd3 00:49 Drug: Zofran (Ondansetron) 4 mg Route: IVP; Site: right antecubital; jd3 01:45 Follow up: Response: No adverse reaction jd3 00:49 Drug: NS 0.9% 1000 ml Route: IV; Rate: 1 bolus; Site: right antecubital; jd3 01:45 Follow up: Response: No adverse reaction; IV Status: Completed infusion; IV Intake: jd3 1000ml 01:45 Drug: fentaNYL (PF) 50 mcg Route: IVP; Site: right antecubital; jd3 02:20 Follow up: Response: No adverse reaction; RASS: Restless (+1); fallow-up done at 0220 jd3 02:19 Drug: Demerol 50 mg Route: IVP; Site: right antecubital; jd3 03:15 Follow up: Response: No adverse reaction; RASS: Alert and Calm (0); fallow-up done at [facility] 0315 03:29 Drug: Cipro 500 mg Route: PO; jd3 03:36 Follow up: Response: Medication administered at discharge. jd3 03:29 Drug: Flagyl 500 mg Route: PO; jd3 03:36 Follow up: Response: Medication administered at discharge. jd3 Disposition: 03/26/20 03:23 Discharged to Home. Impression: Abdominal pain. Colitis. - Condition is Stable. - Prescriptions for Flagyl 500 mg Oral Tablet - take 1 tablet by ORAL route every 8 hours for 10 days; 30 tablet. Ultram 50 mg Oral Tablet - take 1 tablet by ORAL route every 8 hours As needed; 15 tablet. Cipro 500 mg Oral Tablet - take 1 tablet by ORAL route every 12 hours for 7 days; 14 tablet. - Medication Reconciliation Form, Thank You Letter, Antibiotic Education, Prescription Opioid Use form. - Follow up: Private Physician; When: 2 - 3 days; Reason: Re-evaluation by your physician. - Problem is new. - Symptoms have improved. Signatures: Dispatcher [employer] EDMO Alphonso Mitchell MD MD pkl Chretien, Felicia, RN RN Mauri Vazquez RN RN jd3 Corrections: (The following items were deleted from the chart) 01: 01:11 BASIC METABOLIC PANEL+C.LAB.BRZ ordered. EDMS EDMS :27 01:11 HEPATIC FUNCTION+C.LAB.BRZ ordered. EDMS EDMS : 01:11 LIPASE+C.LAB.BRZ ordered. EDMS EDMS : 01:11 CBC+H.LAB.BRZ ordered. EDMS EDMS : 01:11 TYPE AND SCREEN+BB.LAB.BRZ ordered. EDMO EDMS 03:49 03:23 03/26/2020 03:23 Discharged to Home. Impression: Abdominal pain. Colitis. jd3 Condition is Stable. Forms are Medication Reconciliation Form, Thank You Letter, Antibiotic Education, Prescription Opioid Use. Follow up: Private Physician; When: 2 - 3 days; Reason: Re-evaluation by your physician. Problem is new. Symptoms have improved. pkl
--- NOTE | 2020-03-26 03:24 | ER ---
Nurse's Notes [facility] Name: Alex Walker Age: 34 yrs Sex: Female : 1985 Arrival Date: 03/26/2020 Time: 00:34 Bed 2 Private MD: Diagnosis: Abdominal pain. Colitis Presentation: 03/26 00:23 Chief complaint: EMS states: that pt started to have abd cramping pains at approx 2300. fc States that the cramps feel like contractions. Started while on toilet as she passed a large clot. Unknown if clot was vaginal or rectal. Most of pain is in left lower quad. Coronavirus screen: Proceed with normal triage. Ebola Screen: Patient negative for fever greater than or equal to 101.5 degrees Fahrenheit, and additional compatible Ebola Virus Disease symptoms Patient denies exposure to infectious person. Patient denies travel to an Ebola-affected area in the 21 days before illness onset. Initial Sepsis Screen: Does the patient meet any 2 criteria? RR > 20 per min. No. Patient's initial sepsis screen is negative. Does the patient have a suspected source of infection? No. Patient's initial sepsis screen is negative. Risk Assessment: Do you want to hurt yourself or someone else? Patient reports no desire to harm self or others. Onset of symptoms was March 25, 2020 at 23:00. Care prior to arrival: None. Transition of care: patient was not received from another setting of care. 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 - Social history:: Smoking status: Patient reports the use of cigarette tobacco products, smokes one-half pack cigarettes per day, Patient uses alcohol, occasionally. Patient/guardian denies using street drugs. Screenin:23 Abuse screen: Denies threats or abuse. Nutritional screening: No deficits noted. fc Tuberculosis screening: No symptoms or risk factors identified. Fall Risk None identified. Assessment: 00:36 General: Appears in no apparent distress. uncomfortable, Behavior is calm, cooperative, jd3 appropriate for age. Pain: Complains of pain in left iliac crest Quality of pain is described as sharp, tender, Is intermittent. Neuro: Level of Consciousness is awake, alert, obeys commands, Oriented to person, place, time, situation. Cardiovascular: Denies chest pain, Capillary refill < 3 seconds Patient's skin is warm and dry. Respiratory: Airway is patent Respiratory effort is even, unlabored, Respiratory pattern is regular, symmetrical, Denies cough, shortness of breath. GI: Abdomen is round non-distended, Bowel sounds present X 4 quads. Abd is soft X 4 quads Abdomen is tender to palpation in left lower quadrant Reports lower abdominal pain, nausea. : Reports vaginal bleeding that is with clots. EENT: No signs and/or symptoms were reported regarding the EENT system. Derm: Skin is intact, Skin is dry, Skin is normal, Skin temperature is warm. Musculoskeletal: Circulation, motion, and sensation intact. Range of motion: intact in all extremities. 01:46 Reassessment: No changes from previously documented assessment. Patient and/or family jd3 updated on plan of care and expected duration. Pain level reassessed. Patient is alert, oriented x 3, equal unlabored respirations, skin warm/dry/pink. 03:16 Reassessment: Patient and/or family updated on plan of care and expected duration. Pain jd3 level reassessed. Patient is alert, oriented x 3, equal unlabored respirations, skin warm/dry/pink. Patient states feeling better. 03:47 Reassessment: Patient appears in no apparent distress at this time. Patient and/or jd3 family updated on plan of care and expected duration. Pain level reassessed. Patient is alert, oriented x 3, equal unlabored respirations, skin warm/dry/pink. pt reported understanding of discharge instructions. Patient states feeling better. Vital Signs: 00:23 BP 116 / 72; Pulse 83; Resp 22; Temp 98.2(O); Pulse Ox 100% on R/A; Weight 81.19 kg fc (R); Height 5 ft. 1 in. (154.94 cm) (R); Pain 10/10; 01:46 BP 121 / 81; Pulse 72; Resp 17 S; Pulse Ox 99% on R/A; jd3 03:16 BP 108 / 57; Pulse 69; Resp 17 S; Pulse Ox 98% on R/A; jd3 00:23 Body Mass Index 33.82 (81.19 kg, 154.94 cm) ED Course: 00:23 Arm band placed on Patient placed in an exam room, on a stretcher. fc 00:23 Patient has correct armband on for positive identification. Placed in gown. Bed in low fc position. Call light in reach. Side rails up X2. telemetry monitor on. Pulse ox on. NIBP on. 00:23 No provider procedures requiring assistance completed. fc 00:34 Patient arrived in ED. fc 00:35 Alphonso Mitchell MD is Attending Physician. pkl 00:36 Mauri Valladares RN is Primary Nurse. jd3 00:37 Triage completed. fc 01:00 Inserted saline lock: 20 gauge in right antecubital area, using aseptic technique. jd3 Blood collected. placed by Radha OLEARY. 02:14 CT Abd/Pelvis - IV Contrast Only In Process Unspecified. EDMS 03:38 IV discontinued, intact, bleeding controlled, No redness/swelling at site. Pressure jd3 dressing applied. Administered Medications: 00:49 Drug: morphine 4 mg Route: IVP; Site: right antecubital; jd3 01:45 Follow up: Response: No adverse reaction; RASS: Restless (+1); fallow-up done at 0145 jd3 00:49 Drug: Zofran (Ondansetron) 4 mg Route: IVP; Site: right antecubital; jd3 01:45 Follow up: Response: No adverse reaction jd3 00:49 Drug: NS 0.9% 1000 ml Route: IV; Rate: 1 bolus; Site: right antecubital; jd3 01:45 Follow up: Response: No adverse reaction; IV Status: Completed infusion; IV Intake: jd3 1000ml 01:45 Drug: fentaNYL (PF) 50 mcg Route: IVP; Site: right antecubital; jd3 02:20 Follow up: Response: No adverse reaction; RASS: Restless (+1); fallow-up done at 0220 jd3 02:19 Drug: Demerol 50 mg Route: IVP; Site: right antecubital; jd3 03:15 Follow up: Response: No adverse reaction; RASS: Alert and Calm (0); fallow-up done at jd3 0315 03:29 Drug: Cipro 500 mg Route: PO; jd3 03:36 Follow up: Response: Medication administered at discharge. jd3 03:29 Drug: Flagyl 500 mg Route: PO; jd3 03:36 Follow up: Response: Medication administered at discharge. jd3 Intake: 01:45 IV: 1000ml; Total: 1000ml. jd3 Outcome: 03:23 Discharge ordered by . pktyrel 03:38 Discharged to home via wheelchair, with family. jd3 03:38 Condition: stable 03:38 Discharge instructions given to patient, Instructed on discharge instructions, follow up and referral plans. medication usage, Demonstrated understanding of instructions, follow-up care, medications, Prescriptions given X 2. 03:49 Patient left the ED. jd3 Signatures: Dispatcher [employer] EDMS Alphonso Mitchell MD MD pkl Chretien, Felicia, RN RN fc Davies, Jonathon, RN RN jd3 Corrections: (The following items were deleted from the chart) 01:01 00:36 GI: Abdomen is round non-distended, Bowel sounds present X 4 quads. Abd is soft X jd3 4 quads Abdomen is tender to palpation in left lower quadrant Reports lower abdominal pain, jd3 02:19 02:18 Response: No adverse reaction; RASS: Restless (+1) jd3 jd3 02:19 02:19 Response: No adverse reaction; RASS: Restless (+1) jd3 jd3 02:20 02:15 Response: No adverse reaction; RASS: Restless (+1) jd3 jd3 02:21 02:20 Response: No adverse reaction; RASS: Restless (+1) jd3 jd3 02:22 02:20 Response: No adverse reaction; RASS: Restless (+1) jd3 jd3 03:35 02:20 Response: No adverse reaction; RASS: Restless (+1) jd3 jd3 03:36 03:15 Response: No adverse reaction jd3 jd3 03:37 01:45 Response: No adverse reaction; RASS: Alert and Calm (0) jd3 jd3 03:37 03:37 Response: No adverse reaction; RASS: Restless (+1) jd3 jd3 03:48 03:16 Reassessment: Patient and/or family updated on plan of care and expected jd3 duration. Pain level reassessed. Patient is alert, oriented x 3, equal unlabored respirations, skin warm/dry/pink. jd3
[2020-03-26] MEDS ORDERED: CIPROFLOXACIN HCL 500 MG TAB ONE ×2 (03:31→03:33)
[2020-03-26] MEDS ORDERED: metroNIDAZOLE 500 MG TABLET ONE (03:31)
[2020-03-26 03:56] VITALS: BP 108/57; O2SAT 98
--- NOTE | 2020-03-26 20:59 | RAD REPORT ---
EXAM DESCRIPTION: CT Abdomen and Pelvis With Intravenous Contrast CLINICAL HISTORY: The patient is 34 years old and is Female; ABD PAIN TECHNIQUE: Axial computed tomography images of the abdomen and pelvis with intravenous contrast. S agittal and coronal reformatted images were created and reviewed. This CT exam was performed using one or more of the following dose reduction techniques: automated exposure control, adjustment of t he mA and/or kV according to patient size, and/or use of iterative reconstruction technique. COMPARISON: CT of the abdomen and pelvis January 21, 2020 FINDINGS: LUNG BASES: Unremarkable. No mass. No consolidation. ABDOMEN: LIVER: Unremarkable. No mass. GALLBLADDER AND BILE DUCTS: No calcified stones. No ductal dilation. PANCREAS: No ductal dilation. No mass. SPLEEN: Several splenic granuloma are present. ADRENALS: Unremarkable. No mass. KIDNEYS AND URETERS: Unremarkable. The kidneys enhance symmetrically. No obstructing renal or ure teral calculus is seen. No hydronephrosis or hydroureter. No perinephric fluid or stranding. STOMACH AND BOWEL: The stomach is minimally distended with food contents. The small bowel is nor mal in caliber. A large amount of stool is present extending from the splenic flexure to the rectum. Mild thickening of the mucosa of the affected colon is noted. PELVIS: APPENDIX: No findings to suggest acute appendicitis. BLADDER: Unremarkable. No mass. REPRODUCTIVE: Evidence of tubal ligation clips are noted. A small 1.4 cm right ovarian cyst is pr esent. No follow-up imaging is recommended. The uterus and left ovary are unremarkable. ABDOMEN and PELVIS: INTRAPERITONEAL SPACE: Trace amount of free fluid is present within the pelvis which is likely p hysiologic. No free air. BONES/JOINTS: No acute fracture. SOFT TISSUES: The soft tissues are normal. VASCULATURE: Unremarkable. No abdominal aortic aneurysm. LYMPH NODES: Unremarkable. No enlarged lymph nodes. IMPRESSION: Large stool burden extending from the splenic flexure to the rectum with associated mild colitis. No overt obstruction. Electronically signed by: Fallon Solis MD 03/26/2020 2:36 AM CDT Due to temporary technical issues with the PACS/Fluency reporting system, reports are being signed by the in house radiologist without review a sa courtesy to ensure prompt reporting. The interpreting r adiologist is fully responsible for the content of the report.
== END 2020-03-26 03:49 | disposition home or self-care (01) ==
LOC: ER 00:29
DX: K52.9 Noninfective gastroenteritis and colitis, unspecified (principal); F17.210 Nicotine dependence, cigarettes, uncomplicated; Z88.5 Allergy status to narcotic agent
CPT/HCPCS: 36415; 74177; 80048; 80076; 81003; 81025; 83690; 85025; 86850; 86900; 86901; 96361; 96374; 96375; 99284; J2175; J2405; J3010; J7030; Q9967